=== PATIENT | male | born 1930 | race Caucasian/White ===

== ENCOUNTER 2016-11-24 20:25 | Inpatient (IN) | payer OTHER, MEDICARE ==
[2016-11-24] MEDS ORDERED: HEPARIN SODIUM,PORCINE/D5W PMX 25,000 UNIT in DEXTROSE/WATER 1 500ML.BAG IV STA (20:38)
[2016-11-24] MEDS ORDERED: NITROGLYCERIN OINT 1 INCH/GM PACKET TOPICAL STA (20:38)
[2016-11-24] MEDS ORDERED: HEPARIN SODIUM,PORCINE 5,000 UNIT/ML 1 ML VIAL IV STA (20:38)
--- NOTE | 2016-11-24 20:43 | ED ---
Chest Pain HPI - General Source: patient, RN notes reviewed Mode of arrival: wheelchair Limitations: no limitations - History of Present Illness MD Complaint: chest pain <Champ Hickman - Last Filed: 11/24/16 20:53> <Champ Lange - Last Filed: 11/24/16 22:02> - General Chief Complaint: Chest Pain Stated Complaint: chest pain; took 2 nitro @ 1930 Time Seen by Provider: 11/24/16 20:32 - History of Present Illness Initial Comments: This is a 86-year-old male with a history of heart disease states she's had 46 heart attacks and 2 stents who states he's had the onset over last 3 weeks of intermittent left arm pain crampy in nature. It is fleeting lasts seconds. He states it is 73 tonight however he started developing left-sided crampy chest pain he had 2 episodes lasting 15-20 seconds the pain was 78/10 in severity. He does take his nitroglycerin he's not sure if it was old or how old it is. It did seem to take the pain away however. He did take his blood pressure medication today. He states he recently had been running higher than usual. He denies any fevers chills nausea vomiting sweats he thinks he may have had some shortness of breath with the pain. No other complaints no cough or phlegm production. (Champ Hickman) - Related Data Home Medications Medication Instructions Recorded Confirmed Aspirin EC [Ecotrin] 325 mg PO DAILY 07/21/14 07/21/14 Cephalexin [Keflex] 500 mg PO Q12HR 07/21/14 07/21/14 Clopidogrel [Plavix] 75 mg PO DAILY 07/21/14 07/21/14 Furosemide [Lasix] 20 mg PO DAILY 07/21/14 07/21/14 Hydrochlorothiazide [Hydrodiuril] 50 mg PO DAILY 07/21/14 07/21/14 Isosorbide Mononitrate ER [Imdur] 60 mg PO BID 07/21/14 07/21/14 Losartan [Cozaar] 25 mg PO BID 07/21/14 07/21/14 Magnesium Gluconate [Magonate] 500 mg PO DAILY 07/21/14 07/21/14 Movefree 1 tab PO DAILY 07/21/14 07/21/14 [place]-3 Fatty Acids/Fish Oil [Fish 1 tab PO DAILY 07/21/14 07/21/14 Oil 1,000 mg Softgel] Omeprazole [PriLOSEC] 20 mg PO AC-BRKFST 07/21/14 07/21/14 PARoxetine [Paxil] 20 mg PO DAILY 07/21/14 07/21/14 Simvastatin [Zocor] 20 mg PO HS 07/21/14 07/21/14 Tamsulosin [Flomax] 0.4 mg PO DAILY 07/21/14 07/21/14 Allergies Allergy/AdvReac Type Severity Reaction Status Date / Time dutasteride [From Avodart] AdvReac Rapid Verified 11/24/16 20:29 Heart Rate morphine AdvReac PASS OUT Verified 11/24/16 20:29 venom-honey bee AdvReac PASS OUT Verified 11/24/16 20:29 [bee venom (honey bee)] Review of Systems ROS Other: All systems not noted in ROS Statement are negative. <Champ Hickman - Last Filed: 11/24/16 20:53> ROS Other: All systems not noted in ROS Statement are negative. <Champ Lange - Last Filed: 11/24/16 22:02> ROS Statement: Those systems with pertinent positive or pertinent negative responses have been documented in the HPI. EKG Findings - EKG Results: EKG: interpreted by ERMD, sinus rhythm (Sinus rhythm rate is 70 NM interval 196 QRS duration 136 DT says QTC of 412/444 by bundle-branch block with anterior fascicular block, minimal voltage criteria for LVH.) <Champ Hickman - Last Filed: 11/24/16 20:53> Past Medical History Past Medical History: Coronary Artery Disease (CAD), Hypertension, Myocardial Infarction ([place]) Last Myocardial Infarction Date:: 2012 History of Any Multi-Drug Resistant Organisms: None Reported Past Surgical History: Ear Surgery, Heart Catheterization With Stent, Joint Replacement Additional Past Surgical History / Comment(s): Rt knee, cataract removal Past Anesthesia/Blood Transfusion Reactions: No Reported Reaction Date of Last Stent Placement:: 2012 Past Psychological History: No Psychological Hx Reported, Depression Smoking Status: Former smoker Past Alcohol Use History: None Reported Past Drug Use History: None Reported <Champ Hickman - Last Filed: 11/24/16 20:53> General Exam Limitations: no limitations General appearance: alert, in no apparent distress Head exam: Present: atraumatic, normocephalic, normal inspection Eye exam: Present: normal appearance, PERRL, EOMI. Absent: scleral icterus, conjunctival injection, periorbital swelling ENT exam: Present: normal exam, mucous membranes moist Neck exam: Present: normal inspection. Absent: tenderness, meningismus, lymphadenopathy Respiratory exam: Present: normal lung sounds bilaterally. Absent: respiratory distress, wheezes, rales, rhonchi, stridor Cardiovascular Exam: Present: regular rate, normal rhythm, normal heart sounds. Absent: systolic murmur, diastolic murmur, rubs, gallop, clicks GI/Abdominal exam: Present: soft, normal bowel sounds. Absent: distended, tenderness, guarding, rebound, rigid Extremities exam: Present: normal inspection, full ROM, normal capillary refill. Absent: tenderness, pedal edema, joint swelling, calf tenderness Back exam: Present: normal inspection Neurological exam: Present: alert, oriented X3, CN II-XII intact Psychiatric exam: Present: normal affect, normal mood Skin exam: Present: warm, dry, intact, normal color. Absent: rash <Champ Hickman - Last Filed: 11/24/16 20:53> <Champ Lange - Last Filed: 11/24/16 22:02> - General Exam Comments Initial Comments: This is a well-developed well-nourished awake alert oriented 3 male (Champ Hickman) Course <Champ Hickman - Last Filed: 11/24/16 20:53> <Champ Lange - Last Filed: 11/24/16 22:02> Vital Signs 11/24/16 11/24/16 20:27 21:15 Temperature 98 F Pulse Rate 76 61 Respiratory 18 18 Rate Blood Pressure 228/106 193/88 O2 Sat by Pulse 99 98 Oximetry - Reevaluation(s) Reevaluation #1: 11/24/16 20:53 The patient's care will be endorsed to Dr. Lange at our shift change. He will make the final disposition (Champ Hickman) Chest Pain MDM <Champ Hickman - Last Filed: 11/24/16 20:53> - Differential Diagnosis ACS <Champ Lange - Last Filed: 11/24/16 22:02> - MDM Patient signed out from Dr. Hickman at shift change. Patient was evaluated for chest pain. He was started on heparin and nitroglycerin. Laboratory studies were pending. I did evaluate the patient after sign out. He complained of chest pain which lasted 10-15 seconds, 2 episodes which began approximate 7:30 this evening. Chest pain was resolved at the time my evaluation. He did have nausea and diaphoresis associated with this episode. He has had a traumatic arm pain over the last several weeks. Which may be anginal equivalent. EKG from 2031 was reviewed and does show ST segment depression in V2 and V3 V3 depression is concordant in the presence of a bifascicular block. Repeat EKG was obtained, shows improved ST segment depression in V3, there is persistent depression in V2 again in the setting of a bifascicular block. This EKG was obtained at 2133. These changes are new compared to EKG obtained in July 2014. I did call down to [facility] for heart catheterization report and recent EKG information. Old EKG was from April 2013, showed no right bundle branch block, no left anterior fascicular block, and no ST segment depression. I did not visualize his EKG this was report from the physician at [facility]. Patient did have a heart catheterization at that time. These records will be obtained. Chest x-ray shows no acute processes. Laboratory studies including CBC, CMP, and initial cardiac enzymes are within normal limits. Patient will be admitted for cardiology evaluation. Echo has been ordered, patient will be continued on heparin and nitroglycerin paste. He is chest pain- free in the emergency department. Diagnosis: Unstable angina, EKG changes (Champ Lange) Critical Care Time Critical Care Time: Yes Total Critical Care Time: 41 <Champ Lange - Last Filed: 11/24/16 22:02> Disposition <Champ Hickman - Last Filed: 11/24/16 20:53> Decision to Admit Reason: Admit from EC Decision Date: 11/24/16 Decision Time: 22:02 <Champ Lange - Last Filed: 11/24/16 22:02> Clinical Impression: Unstable angina pectoris Disposition: ADMITTED IP TO THIS [facility] Condition: Serious Referrals: Michael Brito MD [STAFF PHYSICIAN] - 1-2 days
[2016-11-24 20:50] LABS: Basophils # (A) 0.1 k/uL (0-0.2); Basophils % (A) 1 %; CH 32.9; CHCM 34.8; Eosinophils # (A) 0.4 k/uL (0-0.7); Eosinophils % (A) 5 %; HCT 46.4 % (39.0-53.0); HDW 2.61; HGB 16.3 gm/dL (13.0-17.5); Luc # (Auto) 0.19; Luc % (Auto) 2; Lymphocytes # (A) 1.8 k/uL (1.0-4.8); Lymphocytes % (A) 21 %; MCH 33.3 pg (25.0-35.0); MCHC 35.1 g/dL (31.0-37.0); MCV 94.9 fL (80.0-100.0); Mean Platelet Volume 6.7; Monocytes # (A) 0.6 k/uL (0-1.0); Monocytes % (A) 7 %; Neutrophils # (A) 5.7 k/uL (1.3-7.7); Neutrophils % (A) 65 %; RBC 4.89 m/uL (4.30-5.90); RDW 13.2 % (11.5-15.5); WBC 8.8 k/uL (3.8-10.6); WBC (Perox) 8.18
[2016-11-24 20:59] LABS: ALT 34 U/L (21-72); AST 18 U/L (17-59); Alkaline Phosphatase 70 U/L (38-126); Anion Gap 11 mmol/L; Blood Urea Nitrogen 16 mg/dL (9-20); Calcium 8.8 mg/dL (8.4-10.2); Carbon Dioxide 22 mmol/L (22-30); Chloride 99 mmol/L (98-107); Glucose 153 mg/dL (74-99); Magnesium 1.8 mg/dL (1.6-2.3); Non-African American GFR(MDRD) >60 (>60 ml/min/1.73 sqM); Potassium 4.1 mmol/L (3.5-5.1); Sodium 132 mmol/L (137-145); Total Bilirubin 1.1 mg/dL (0.2-1.3); Total Protein 6.5 g/dL (6.3-8.2)
[2016-11-24 21:07] LABS: Partial Thromboplastin Time 23.6 sec (22.0-30.0); Prothrombin Time 10.5 sec (9.0-12.0)
[2016-11-24 21:09] LABS: Creatine Kinase 55 U/L (55-170)
[2016-11-24 21:22] LABS: Creatine Kinase MB 1.5 ng/mL (0.0-2.4); Troponin I <0.012 ng/mL (0.000-0.034)
--- NOTE | 2016-11-24 21:33 | XR ---
EXAMINATION TYPE: XR chest 2V DATE OF EXAM: 11/24/2016 COMPARISON: 07/21/2014 INDICATION: Chest pain TECHNIQUE: Frontal and lateral views of the chest are obtained. FINDINGS: The heart size is normal. The pulmonary vasculature is normal. The lungs are clear. IMPRESSION: 1. No acute pulmonary process.
[2016-11-24] MEDS ORDERED: LOSARTAN 50 MG TAB PO STA (21:35)
[2016-11-24] MEDS ORDERED: ONDANSETRON 4 MG/2 ML VIAL IVP PRN (21:50)
[2016-11-24] MEDS ORDERED: NALOXONE 0.4 MG/ML 1 ML VIAL IV PRN (21:50)
[2016-11-24] MEDS ORDERED: SODIUM CHLORIDE 0.9% 1,000 ML IV SCH (22:00)
[2016-11-24 23:19] VITALS: BMI 28.6
[2016-11-24] MEDS ORDERED: HEPARIN SODIUM,PORCINE 5,000 UNIT/ML 1 ML VIAL IV PRN (23:38)
[2016-11-24] MEDS ORDERED: ACETAMINOPHEN TAB 325 MG TAB PO PRN (23:44)
[2016-11-24] MEDS ORDERED: KETOROLAC 30 MG/ML 1 ML VIAL IVP PRN (23:44)
[2016-11-24] MEDS ORDERED: HEPARIN SODIUM,PORCINE/D5W PMX 25,000 UNIT in DEXTROSE/WATER 1 500ML.BAG IV SCH (23:45)
[2016-11-25] MEDS: NITROGLYCERIN-D5W PMX 50 MG in DEXTROSE/WATER 1 250ML.BAG IV SCH (00:17)
[2016-11-25 02:47] LABS: Basophils # (A) 0.1 k/uL (0-0.2); Basophils % (A) 1 %; CH 33.8; CHCM 34.7; Eosinophils # (A) 0.5 k/uL (0-0.7); Eosinophils % (A) 6 %; HCT 43.3 % (39.0-53.0); HDW 2.54; HGB 14.4 gm/dL (13.0-17.5); Luc # (Auto) 0.18; Luc % (Auto) 2; Lymphocytes # (A) 2.2 k/uL (1.0-4.8); Lymphocytes % (A) 26 %; MCH 32.5 pg (25.0-35.0); MCHC 33.2 g/dL (31.0-37.0); MCV 98.1 fL (80.0-100.0); Monocytes # (A) 0.5 k/uL (0-1.0); Monocytes % (A) 6 %; Neutrophils # (A) 4.8 k/uL (1.3-7.7); Neutrophils % (A) 58 %; RBC 4.42 m/uL (4.30-5.90); WBC 8.2 k/uL (3.8-10.6); WBC (Perox) 8.16
[2016-11-25 03:26] LABS: Creatine Kinase MB 1.5 ng/mL (0.0-2.4); Troponin I 0.023 ng/mL (0.000-0.034)
[2016-11-25 03:32] LABS: ALT 32 U/L (21-72); AST 16 U/L (17-59); Alkaline Phosphatase 59 U/L (38-126); Anion Gap 8 mmol/L; Blood Urea Nitrogen 15 mg/dL (9-20); Calcium 8.5 mg/dL (8.4-10.2); Carbon Dioxide 22 mmol/L (22-30); Chloride 104 mmol/L (98-107); Glucose 99 mg/dL (74-99); Non-African American GFR(MDRD) >60 (>60 ml/min/1.73 sqM); Sodium 134 mmol/L (137-145); Total Bilirubin 0.8 mg/dL (0.2-1.3); Total Protein 5.3 g/dL (6.3-8.2)
[2016-11-25 09:06] LABS: Creatine Kinase MB 1.5 ng/mL (0.0-2.4); Troponin I 0.017 ng/mL (0.000-0.034)
--- NOTE | 2016-11-25 09:55 | CONS ---
Mr. Duggan is an 86-year-old male patient who presented with recurrent chest discomfort. He is experiencing chest discomfort, mostly lasting for a few minutes and occasionally lasting for 10 to 15 minutes and often with left arm discomfort. He has an appointment pending with Dr. Brito in about three or four weeks. This has been going on for greater than one month. He came to the emergency room. His blood pressure is very high, 190 mmHg. At home he states his blood pressure fluctuates from 130 systolic to 160 to 170 mmHg. He denies any headaches, any blurring of vision. REVIEW OF SYSTEMS: no fever, chills or rigors. No cough or expectoration. He has had no nausea or vomiting, no diarrhea and no hematuria or dysuria. No strokes or seizures. No skin lesions or musculoskeletal complaints. Past medical history of coronary artery disease status post coronary stenting on numerous occasions. History of hypertension. ALLERGY: Reviewed. Medications are reviewed at home. On examination, his blood pressure today is still high on nitroglycerine 190 systolic. 190/79 mmHg. Heart rate in the 50s. Temperature 97.1 degrees. Heart sounds S1, S1 normal. No murmurs or gallops. Breath sounds are normal. There are no rhonchi. No crackles. Extremities are warm, no edema. IMPRESSION: 1. Uncontrolled hypertension, blood pressure on admission was ( ) mmHg. This morning is it 190/79 mmHg. The lowest it has been is 130/71 mmHg but that is a single isolated episode. 2. I do not hear any abdominal bruits. His labs are reviewed. His potassium level is normal. Troponins are also normal. There is no evidence of an acute myocardial infarction. 3. 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 No syncope. SUGGEST: 1. Taper of IV nitroglycerine, start Amlodipine 5 mg twice daily. 2. Restart Losartan 50 mg twice daily. 3. Renal artery Doppler study. 4. Serum ( ), serum ( ). 5. Lipid panel. My plan is blood pressure control first and then subsequently workup for coronary artery disease. [facility]
[2016-11-25] MEDS: amLODIPine 5 MG TAB PO SCH ×2 (11:25→20:28)
[2016-11-25] MEDS: LOSARTAN 50 MG TAB PO SCH ×2 (11:25→20:28)
--- NOTE | 2016-11-25 16:23 | P.HPIM ---
History of Present Illness H&P Date: 11/25/16 Chief Complaint: Chest pain This is a 86-year-old gentleman with history of CAD status post a cardiac catheterization in 2012 and PCI done by Dr. Brito comes in to the hospital with complaints of vague chest pain and left arm pain that is intermittent in nature over the last 4-6 weeks. Patient denies having any exacerbating features such as activity causing the recurrence of pain. However patient's symptoms have progressively gotten worse over the last few weeks. Patient was noted to have relief with nitroglycerin the day of admission to the emergency room Patient was also noted to have accelerated hypertension at that time. EKG was consistent with vague changes with a bifascicular block no ST-T wave changes Patient was having acute chest pain overnight I did initiate a nitroglycerin drip for blood pressure control and relief of chest pain. Patient was seen this morning was noted to have elevated high blood pressures. During my evaluation patient is having any headaches blurry vision nausea vomiting diarrhea. Review of Systems All systems: negative (Noted in HPI) Past Medical History Past Medical History: Coronary Artery Disease (CAD), Heart Failure, CVA/TIA, Hypertension, Myocardial Infarction ([place]), Osteoarthritis (OA) Additional Past Medical History / Comment(s): patient states he had a stroke a couple years ago but did not go to the hospital for it. Said his mouth and hands went numb and was unable to see. Symptoms lasted a couple hours and then improved. Last Myocardial Infarction Date:: 2012 History of Any Multi-Drug Resistant Organisms: None Reported Past Surgical History: Ear Surgery, Heart Catheterization With Stent, Joint Replacement Additional Past Surgical History / Comment(s): Rt knee, cataract removal Past Anesthesia/Blood Transfusion Reactions: No Reported Reaction Date of Last Stent Placement:: 2012 Past Psychological History: No Psychological Hx Reported, Depression Additional Psychological History / Comment(s): Patient states he has been under a lot of stress and has felt depressed lately. Lost his son 3 weeks ago. Smoking Status: Former smoker Past Alcohol Use History: None Reported Past Drug Use History: None Reported - Past Family History Son(s) Family Medical History: Coronary Artery Disease (CAD) Additional Family Medical History / Comment(s): son recently from heart disease, was born with heart defect. Medications and Allergies Home Medications Medication Instructions Recorded Confirmed Type Aspirin EC [Ecotrin] 325 mg PO DAILY 07/21/14 11/25/16 History Clopidogrel [Plavix] 75 mg PO DAILY 07/21/14 11/25/16 History Isosorbide Mononitrate ER [Imdur] 60 mg PO BID 07/21/14 11/25/16 History Losartan [Cozaar] 50 mg PO BID 07/21/14 11/25/16 History Magnesium Gluconate [Magonate] 500 mg PO DAILY 07/21/14 11/25/16 History PARoxetine [Paxil] 20 mg PO DAILY 07/21/14 11/25/16 History Simvastatin [Zocor] 20 mg PO HS 07/21/14 11/25/16 History Tamsulosin [Flomax] 0.4 mg PO DAILY 07/21/14 11/25/16 History amLODIPine [Norvasc] 2.5 mg PO DAILY 11/25/16 11/25/16 History Allergies Allergy/AdvReac Type Severity Reaction Status Date / Time dutasteride [From Avodart] AdvReac Rapid Verified 11/25/16 08:02 Heart Rate morphine AdvReac PASS OUT Verified 11/25/16 08:02 venom-honey bee AdvReac PASS OUT Verified 11/25/16 08:02 [bee venom (honey bee)] Physical Exam Vitals: Vital Signs Temp Pulse Pulse Resp BP BP Pulse Ox 11/25/16 11:50 97.0 F L 59 L 18 198/93 97 11/25/16 08:47 96 11/25/16 07:50 97.1 F L 52 L 18 190/79 96 11/25/16 05:44 156/72 11/25/16 04:00 96.8 F L 51 L 18 130/71 97 11/25/16 02:45 153/72 11/25/16 01:25 166/80 11/25/16 00:00 97.5 F L 56 L 16 173/89 98 11/24/16 22:50 97.0 F L 60 18 208/93 97 11/24/16 22:17 97.8 F 60 16 182/91 98 11/24/16 21:15 61 18 193/88 98 11/24/16 20:27 98 F 76 18 228/106 99 Intake and Output 11/25/16 11/25/16 11/25/16 06:59 14:59 22:59 Intake Total 706.525 240 Output Total 1000 Balance 706.525 -760 Intake: Intake, IV Titration 706.525 Amount Heparin Sodium,Porcine/ 70.525 D5w Pmx 25,000 unit In Dextrose/Water 1 500ml. bag @ 11.8 UNITS/KG/HR 20 .15 mls/hr IV .Q24H MARIA TERESA Rx#:[id number] Nitroglycerin-D5w Pmx 50 36 mg In Dextrose/Water 1 250ml.bag @ 15 MCG/MIN 4. 5 mls/hr IV .Q24H MARIA TERESA Rx# :[id number] Sodium Chloride 0.9% 1, 600 000 ml @ 75 mls/hr IV . [id number] MARIA TERESA Rx#:[id number] Oral 240 Output: Urine 1000 Other: Voiding Method Toilet # Voids 1 2 Weight 85.4 kg Physical exam Gen. appearance oriented 3 in no distress Neck is supple no JVD Lungs good air entry clear to auscultation no rhonchi or wheezing Heart S1-S2 heard regular rate and rhythm no murmurs appreciated Abdomen is soft nontender no organomegaly bowel sounds are intact Neurologically cranial nerves II-12 grossly intact no focal motor or sensory deficits noted Skin no abnormalities appreciated Results CBC & Chem 7: 11/25/16 02:29 11/25/16 02:29 Labs: Abnormal Lab Results - Last 24 Hours (Table) 11/24/16 11/25/16 11/25/16 Range/Units 20:44 02:29 02:29 APTT (22.0-30.0) sec Sodium 132 L 134 L (137-145) mmol/L Glucose 153 H (74-99) mg/dL AST 16 L (17-59) U/L Total Creatine Kinase 45 L (55-170) U/L Total Protein 5.3 L (6.3-8.2) g/dL Albumin 3.1 L (3.5-5.0) g/dL 11/25/16 11/25/16 11/25/16 Range/Units 02:29 08:18 08:18 APTT 90.0 H 68.6 H (22.0-30.0) sec Sodium (137-145) mmol/L Glucose (74-99) mg/dL AST (17-59) U/L Total Creatine Kinase 46 L (55-170) U/L Total Protein (6.3-8.2) g/dL Albumin (3.5-5.0) g/dL Thrombosis Risk Factor Assmnt - Choose All That Apply Any of the Below Risk Factors Present?: Yes Each Factor Represents 1 point: Obesity (BMI >25) Each Risk Factor Represents 3 Points: Age 75 years or older Thrombosis Risk Factor Assessment Total Risk Factor Score: 4 Thrombosis Risk Factor Assessment Level: Moderate Risk Assessment and Plan Plan: #1 unstable angina #2 accelerated hypertension. With hypertensive urgency #3 history of CAD #4 dyslipidemia #5 previous history of tobacco use Plan Titrated of nitroglycerin drip Patient was initiated on some blood pressure medications for better control Thereafter with his risk factors CAD will be worked up in the next 24 hours Continue monitoring blood pressures at this time.
[2016-11-26] MEDS: NITROGLYCERIN-D5W PMX 50 MG in DEXTROSE/WATER 1 250ML.BAG IV SCH (09:01)
[2016-11-26] MEDS: amLODIPine 5 MG TAB PO SCH ×2 (09:08→20:09)
[2016-11-26] MEDS: LOSARTAN 50 MG TAB PO SCH ×2 (09:08→20:09)
--- NOTE | 2016-11-26 10:26 | ECHOF ---
Referral Reason:chest pain MEASUREMENTS -------- HEIGHT: 172.7 cm WEIGHT: 82.1 kg BP: 161/74 RVIDd: 3.3 cm (< 3.3) IVSd: 1.2 cm (0.6 - 1.1) LVIDd: 3.9 cm (3.9 - 5.3) LVPWd: 1.1 cm (0.6 - 1.1) IVSs: 1.4 cm LVIDs: 2.9 cm LVPWs: 1.6 cm LA Diam: 3.9 cm (2.7 - 3.8) LAESV Index (A-L): 28.08 ml/m Ao Diam: 3.0 cm (2.0 - 3.7) AV Cusp: 1.9 cm (1.5 - 2.6) MV EXCURSION: 12.364 mm (> 18.000) MV EF SLOPE: 33 mm/s (70 - 150) EPSS: 0.7 cm MV E Greyson: 0.77 m/s MV DecT: 321 ms MV A Greyson: 1.06 m/s MV E/A Ratio: 0.72 AV maxP.00 mmHg AV meanP.00 mmHg FINDINGS -------- This was a technically good study. The left ventricular size is normal. There is borderline concentric left ventricular hypertrophy. Overall left ventricular systolic function is normal with, an EF between 55 - 60 %. The right ventricle is mildly enlarged. Normal LA size by volume 22+/-6 ml/m2. The right atrium is normal in size. There is mild aortic valve sclerosis. Trace amount of aortic regurgitation. Mild mitral annular calcification present. There is trace to mild mitral regurgitation. The tricuspid valve appears structurally normal. There is no pulmonic regurgitation present. The aortic root size is normal. IVC Not well visulized. There is no pericardial effusion. CONCLUSIONS -------- 1. This was a technically good study. 2. Mild mitral annular calcification present. 3. There is trace to mild mitral regurgitation. 4. The tricuspid valve appears structurally normal. 5. There is no pulmonic regurgitation present. 6. The aortic root size is normal. 7. IVC Not well visulized. 8. There is no pericardial effusion. 9. The left ventricular size is normal. 10. There is borderline concentric left ventricular hypertrophy. 11. Overall left ventricular systolic function is normal with, an EF between 55 - 60 %. 12. The right ventricle is mildly enlarged. 13. Normal LA size by volume 22+/-6 ml/m2. 14. The right atrium is normal in size. 15. There is mild aortic valve sclerosis. 16. Trace amount of aortic regurgitation. BEHAVIORAL HEALTH CARE COORDINATOR: Lesvia Sampson RDCS
--- NOTE | 2016-11-26 10:34 | US ---
EXAMINATION TYPE: US renal artery duplex complete DATE OF EXAM: 11/26/2016 COMPARISON: NONE CLINICAL HISTORY: renal artery stenosis. HTN for years MEASUREMENTS: RENAL SIZE: Rt Kidney: 11.1 x 6.2 x 4.3cm Lt Kidney: 11.3 x 5.8 x 4.8cm RESISTANCE INDEX Right: 0.72 Left: 0.74 RA/AO RATIO (< 3.5 ) Right: 1.5 Left: 1.3 RA VELOCITY ( < 180 cm/s) Right: 158.5 cm/s Left: 134.4 cm/s Calcifications noted throughout aorta. Lobulated contour noted right kidney. Cystic areas noted bilat eral kidneys with largest = 1.2 x 1.0 x 1.0cm on the right and 0.8 x 0.9 x 0.8cm on the left. No evid ence of renal artery stenosis at this time. Low resistive waveforms noted throughout. Good upstroke a t segmentals at hilum IMPRESSION: 1. Normal renal artery Doppler study without significant stenosis. 2. Scattered bilateral renal cysts. 3. Atherosclerotic calcification within the aorta.
[2016-11-26] MEDS: TRIAMTERENE-HCTZ 37.5-25MG 1 EACH CAP PO SCH (12:13)
--- NOTE | 2016-11-26 12:26 | P.PN ---
Subjective Principal diagnosis: chest pain and hypertension This is an 86-year-old gentleman who presented to the hospital with symptoms of chest discomfort on admission here. This morning his blood pressure is in the 180s systolic range, we will add Dyazide to his medication regime.metanephrines have been requested, patient also underwent renal artery ultrasound, normal without any significant stenosis. Overall the patient feels well today, denies any further chest discomfort. Troponin's 0.012, 0.0-3, 0.017. Patient states that he had a bad reaction to a non-walking stress test in the past, Dr. Matos recommended Lisa scan tomorrow. Objective - Vital Signs Vital signs: Vital Signs Temp 97 F L 11/26/16 12:00 Pulse 64 11/26/16 12:00 Resp 16 11/26/16 12:00 BP 189/88 11/26/16 12:00 Pulse Ox 97 11/26/16 12:00 Intake & Output 11/25/16 11/26/16 11/26/16 18:59 06:59 18:59 Intake Total 480 48 Output Total 1000 Balance -520 48 Weight 82.3 kg Intake: Intake, IV Titration 48 Amount Nitroglycerin-D5w Pmx 50 48 mg In Dextrose/Water 1 250ml.bag @ 15 MCG/MIN 4. 5 mls/hr IV .Q24H MARIA TERESA Rx# :[id number] Oral 480 Output: Urine 1000 Other: Voiding Method Toilet # Voids 2 1 - Exam PHYSICAL EXAMINATION: HEENT: [Head is atraumatic, normocephalic. Pupils equal, round. Neck is supple. There is no elevated jugular venous pressure.] HEART EXAMINATION: [Heart S1, S2 normal. No murmur or gallop heard.] CHEST EXAMINATION:[ Lungs are clear to auscultation and precussion. No chest wall tenderness is noted on palpation or with deep breathing.] ABDOMEN: [ Soft, nontender. Bowel sounds are heard. No organomegaly noted]. EXTREMITIES:[ 2+ peripheral pulses with no evidence of peripheral edema and no calf tenderness noted]. NEUROLOGIC [patient is awake, alert and oriented -3.] . - Labs CBC & Chem 7: 11/25/16 02:29 11/25/16 02:29 Assessment and Plan (1) Chest pain Status: Acute (2) Hypertension, accelerated Status: Acute Plan: From cardiology's perspective, we will add Dyazide to the patient's medication regime for more optimal blood pressure control. We will also schedule the patient to undergo a Lexiscan stress test tomorrow, further recommendations will be based on those findings and the patient's clinical course. DNP note has been reviewed, I agree with a documented findings and plan of care. Patient was seen and examined.
--- NOTE | 2016-11-26 13:29 | P.PN ---
Subjective Progress note being dictated for Dr. Olivares Interval history:This is a 86-year-old gentleman with history of CAD status post a cardiac catheterization in 2012 and PCI done by Dr. Brito comes in to the hospital with complaints of vague chest pain and left arm pain that is intermittent in nature over the last 4-6 weeks. Patient denies having any exacerbating features such as activity causing the recurrence of pain. However patient's symptoms have progressively gotten worse over the last few weeks. Patient was noted to have relief with nitroglycerin the day of admission to the emergency room Patient was also noted to have accelerated hypertension at that time. EKG was consistent with vague changes with a bifascicular block no ST-T wave changes Patient was having acute chest pain overnight I did initiate a nitroglycerin drip for blood pressure control and relief of chest pain. Patient was seen this morning was noted to have elevated high blood pressures. During my evaluation patient is having any headaches blurry vision nausea vomiting diarrhea. 11/26/2016 maintained on nitroglycerin drip. Hypertensive, Dyazide added to med regime as per cardiology. Tentatively scheduled for stress test tomorrow pending better control blood pressure. Denies any chest pain, palpitations or increasing shortness of breath. Denies any lightheadedness or dizziness. Focal deficits, no blurred vision, no headaches. Objective - Vital Signs Vital signs: Vital Signs Temp 97 F L 11/26/16 12:00 Pulse 64 11/26/16 12:00 Resp 16 11/26/16 12:00 BP 189/88 11/26/16 12:00 Pulse Ox 97 11/26/16 12:00 Intake & Output 11/25/16 11/26/16 11/26/16 18:59 06:59 18:59 Intake Total 480 48 180 Output Total 1000 Balance -520 48 180 Weight 82.3 kg Intake: Intake, IV Titration 48 Amount Nitroglycerin-D5w Pmx 50 48 mg In Dextrose/Water 1 250ml.bag @ 15 MCG/MIN 4. 5 mls/hr IV .Q24H MARIA TERESA Rx# :[id number] Oral 480 180 Output: Urine 1000 Other: Voiding Method Toilet # Voids 2 1 - Exam PHYSICAL EXAM: VITAL SIGNS: [As above] GENERAL: [Sitting up in bed, no acute distress] HEENT: [Pupils equal conjunctiva normal. Oral mucosa moist] NECK: [Supple, no JVD] RESPIRATORY EFFORT:[ Normal] LUNGS: [Clear, no wheezing, rhonchi or crackles] CARDIOVASCULAR[ regular S1 and S2, no murmurs rubs or gallops, no edema] GI: [Abdomen soft, nontender, positive bowel sounds. No organomegaly, no guarding or rigidity] PSYCH: [Alert and oriented -3, mood and affect normal.] SKIN: No abnormalities appreciated. NEURO: [No focal deficits, moves all 4 extremities, strength and sensation grossly intact.] - Labs CBC & Chem 7: 11/25/16 02:29 11/25/16 02:29 Assessment and Plan Plan: #1 unstable angina #2 accelerated hypertension. With hypertensive urgency #3 history of CAD #4 dyslipidemia #5 previous history of tobacco use Plan: Continue on current medication regime ,monitoring and symptomatic treatment. As mentioned above Dyazide added to med regime, nitroglycerin drip has been discontinued as per cardiology and patient is tentatively scheduled for stress test tomorrow. Further recommendations to follow. The impression and plan of care has been dictated as directed. : I performed a H&P examination of this patient and discussed the same with the dictator. I agree with the dictator's note. Any additional findings/opinions/ etc. will be noted.
[2016-11-26 18:01] VITALS: RESP 18
[2016-11-27] MEDS: amLODIPine 5 MG TAB PO SCH (08:36)
[2016-11-27] MEDS: TRIAMTERENE-HCTZ 37.5-25MG 1 EACH CAP PO SCH (08:36)
[2016-11-27] MEDS: LOSARTAN 50 MG TAB PO SCH (08:36)
[2016-11-27] MEDS ORDERED: AMINOPHYLLINE 500 MG/20 ML VIAL IV PRN (10:02)
[2016-11-27] MEDS ORDERED: REGADENOSON 0.4 MG/5 ML SYRINGE IV ONE (10:02)
[2016-11-27 12:46] VITALS: BP 177/84; PULSE 56; TEMP 97.5
--- NOTE | 2016-11-27 13:14 | NM ---
EXAMINATION TYPE: NM stress lexiscan cardiolite DATE OF EXAM: 11/27/2016 COMPARISON: NONE HISTORY: Precordial chest pain and abnormal EKG. TECHNIQUE: After the intravenous administration of 11.21 mCi Tc 99m Sestamibi - Cardiolite resting S PECT images acquired 79 minutes post injection. The patient received 0.4mg Lexiscan, 27.5 mCi Tc 99m Sestamibi - Stress images obtained [address] injection FINDINGS: Review of stress and rest SPECT images demonstrates relatively fixed decreased perfusion involving th e inferior wall. This is likely related to attenuation artifact versus remote insult. No stress-induc ed ischemia identified. Gated analysis shows normal wall motion with an estimated left ventricular ej ection fraction of 56 %. IMPRESSION: No scintigraphic evidence for reversible ischemia.
--- NOTE | 2016-11-27 14:46 | P.PN ---
Subjective Principal diagnosis: chest pain and hypertension This is an 86-year-old gentleman who presented to the hospital with symptoms of chest discomfort on admission here. This morning his blood pressure is in the 180s systolic range, we will add Dyazide to his medication regime.metanephrines have been requested, patient also underwent renal artery ultrasound, normal without any significant stenosis. Overall the patient feels well today, denies any further chest discomfort. Troponin's 0.012, 0.0-3, 0.017. Patient states that he had a bad reaction to a non-walking stress test in the past, Dr. Matos recommended Lisa scan tomorrow. 11/27/2016 Patient seen and examined this morning, up ambulating in the [place] without any difficulty. Denies any chest discomfort. Blood pressure 138/60 heart rate in the 40s to 50s. Lisa scan was performed today which came back negative for any reversible ischemia. Objective - Vital Signs Vital signs: Vital Signs Temp 97.5 F L 11/27/16 12:00 Pulse 56 L 11/27/16 12:00 Resp 18 11/27/16 12:00 BP 177/84 11/27/16 12:00 Pulse Ox 96 11/27/16 12:00 Intake & Output 11/26/16 11/27/16 11/27/16 18:59 06:59 18:59 Intake Total 360 440 Output Total 350 Balance 360 90 Weight 81.9 kg 81.647 kg Intake: Oral 360 440 Output: Urine 350 Other: Voiding Method Toilet Toilet # Voids 2 1 - Exam PHYSICAL EXAMINATION: HEENT: [Head is atraumatic, normocephalic. Pupils equal, round. Neck is supple. There is no elevated jugular venous pressure.] HEART EXAMINATION: [Heart S1, S2 normal. No murmur or gallop heard.] CHEST EXAMINATION:[ Lungs are clear to auscultation and precussion. No chest wall tenderness is noted on palpation or with deep breathing.] ABDOMEN: [ Soft, nontender. Bowel sounds are heard. No organomegaly noted]. EXTREMITIES:[ 2+ peripheral pulses with no evidence of peripheral edema and no calf tenderness noted]. NEUROLOGIC [patient is awake, alert and oriented -3.] . - Labs CBC & Chem 7: 11/25/16 02:29 11/25/16 02:29 Assessment and Plan (1) Chest pain Status: Acute (2) Hypertension, accelerated Status: Acute Plan: From cardiology's perspective, Lisa scan stress test of today was negative for any reversible ischemia. From cardiology's perspective he may be able to be discharged home today, we'll make him a follow-up appointment to see Dr. Brito in the office post discharge. DNP note has been reviewed, I agree with a documented findings and plan of care. Patient was seen and examined.
--- NOTE | 2016-11-28 07:06 | EST ---
DATE OF SERVICE: 11/27/2016 TYPE OF REPORT: Lexiscan Cardiolite stress test. INDICATION: Chest pain. BASELINE HEART RATE: 57 BASELINE BLOOD PRESSURE: 150/70 MAXIMUM HEART RATE: 75 MAXIMUM BLOOD PRESSURE: 175/65 85% MPHR: 100% MPHR: METS: MAX STAGE REACHED: TOTAL EXERCISE TIME: The test is being done to evaluate cardiac status. Baseline EKG showed sinus rhythm with normal OK interval and QRS duration and nonspecific ST-T abnormalities. Blood pressure at rest is 150/70. A standard dose of Lexiscan was infused. EKG did not reveal any acute changes. Patient did complain of mild chest pain and mild sweating. FINAL IMPRESSION: 1. Negative Lexiscan stress test. 2. Report on the nuclear images to be given by the radiologist. ARABELLA
--- NOTE | 2016-11-28 12:57 | P.DS ---
Providers Date of admission: 11/24/16 21:53 Expected date of discharge: 11/27/16 Attending physician: Jesus Olivares MD Consults: 11/24/16 21:51 Consult Physician Urgent Consulting Provider: Ricardo Delcid Consult Reason/Comments: Unstable angina Do you want consulting provider notified?: Yes, Notify in am Primary care physician: Chuy Pedraza Hospital Course: Final Diagnoses: #1 unstable angina, status post Lexiscan stress with no reported stress-induced ischemia #2 accelerated hypertension. With hypertensive urgency, improved. #3 history of CAD #4 dyslipidemia #5 previous history of tobacco use Hospital course:This is a 86-year-old gentleman with history of CAD status post a cardiac catheterization in 2012 and PCI done by Dr. Brito comes in to the hospital with complaints of chest pain and left arm pain that is intermittent in nature over the last 4-6 weeks, accelerated hypertension. Troponin 0.012, 0.023, 0.017.EKG was consistent with vague changes with a bifascicular block no ST-T wave changes. Evaluated by cardiology, antihypertensives adjusted. Dyazide added to med regime. Renal ultrasound reported no significant stenosis. Underwent Lexiscan stress test, no stress-induced ischemia. Significant clinical improvement. Cleared by cardiology for discharge. Patient is being discharged home in a stable condition with guarded prognosis. The impression and plan of care has been dictated as directed as a scribe. : I performed a H&P examination of this patient and discussed the same with the dictator. I agree with the dictator's note. Any additional findings/opinions/ etc. will be noted. Patient Condition at Discharge: Stable Plan - Discharge Summary New Discharge Prescriptions: New amLODIPine [Norvasc] 5 mg PO BID #60 tab Triamterene-Hctz 37.5-25Mg [Dyazide 37.5-25 Capsule] 1 each PO DAILY #30 cap Aspirin EC [Ecotrin Low Dose] 81 mg PO DAILY #30 tablet.dr Prieto Magnesium Gluconate [Magonate] 500 mg PO DAILY Losartan [Cozaar] 50 mg PO BID Clopidogrel [Plavix] 75 mg PO DAILY Tamsulosin [Flomax] 0.4 mg PO DAILY Isosorbide Mononitrate ER [Imdur] 60 mg PO BID Simvastatin [Zocor] 20 mg PO HS PARoxetine [Paxil] 20 mg PO DAILY Discontinued amLODIPine [Norvasc] 2.5 mg PO DAILY Discharge Medication List Clopidogrel [Plavix] 75 mg PO DAILY 07/21/14 [History] Isosorbide Mononitrate ER [Imdur] 60 mg PO BID 07/21/14 [History] Losartan [Cozaar] 50 mg PO BID 07/21/14 [History] Magnesium Gluconate [Magonate] 500 mg PO DAILY 07/21/14 [History] PARoxetine [Paxil] 20 mg PO DAILY 07/21/14 [History] Simvastatin [Zocor] 20 mg PO HS 07/21/14 [History] Tamsulosin [Flomax] 0.4 mg PO DAILY 07/21/14 [History] Aspirin EC [Ecotrin Low Dose] 81 mg PO DAILY #30 tablet. 11/27/16 [Rx] Triamterene-Hctz 37.5-25Mg [Dyazide 37.5-25 Capsule] 1 each PO DAILY #30 cap [Rx] amLODIPine [Norvasc] 5 mg PO BID #60 tab 11/27/16 [Rx] Follow up Appointment(s)/Referral(s): Michael Brito MD [STAFF PHYSICIAN] - 11/29/16 2:15 pm Alessio Daley MD [STAFF PHYSICIAN] - 11/30/16 10:00 am (please make apt. prior to dc, new patient) Ambulatory/Diagnostic Orders: Complete Blood Count w/diff [LAB.AMB] Time Frame: 3 Days, Location: Determined By Patient Patient Instructions/Handouts: Angina (DC) Discharge Disposition: HOME SELF-CARE
== END 2016-11-27 16:51 | disposition home or self-care (01) | DRG 303 ==
LOC: EC 20:25 → 6SEL 21:53
PROVIDERS: ADMIT Internal Medicine; ATTEND Internal Medicine
PROC: 4A12XM4 Monitoring of Cardiac Stress, External Approach (ICD-10-PCS; principal; 2016-11-27)
PROC: 3E033HZ Introduction of Radioactive Substance into Peripheral Vein, Percutaneous Approach (ICD-10-PCS; 2016-11-27)
PROC: C22G1ZZ Tomographic (Tomo) Nuclear Medicine Imaging of Myocardium using Technetium 99m (Tc-99m) (ICD-10-PCS; 2016-11-27)
DX: I25.110 Atherosclerotic heart disease of native coronary artery with unstable angina pectoris (principal); I45.3 Trifascicular block; I45.2 Bifascicular block; I50.9 Heart failure, unspecified; I11.0 Hypertensive heart disease with heart failure; I16.0 Hypertensive urgency; E78.5 Hyperlipidemia, unspecified; I70.0 Atherosclerosis of aorta; M19.90 Unspecified osteoarthritis, unspecified site; I25.2 Old myocardial infarction; N28.1 Cyst of kidney, acquired; Z82.49 Family history of ischemic heart disease and other diseases of the circulatory system; Z79.899 Other long term (current) drug therapy; Z87.891 Personal history of nicotine dependence; Z79.02 Long term (current) use of antithrombotics/antiplatelets; Z86.73 Personal history of transient ischemic attack (TIA), and cerebral infarction without residual deficits; Z82.79 Family history of other congenital malformations, deformations and chromosomal abnormalities; Z88.5 Allergy status to narcotic agent; Z88.8 Allergy status to other drugs, medicaments and biological substances; Z91.030 Bee allergy status; Z79.82 Long term (current) use of aspirin; Z95.5 Presence of coronary angioplasty implant and graft; Z96.651 Presence of right artificial knee joint; Z98.49 Cataract extraction status, unspecified eye; Z63.4 Disappearance and death of family member
CPT/HCPCS: 36415; 71020; 78452; 80053; 82088; 82164; 82272; 82550; 82553; 83735; 83835; 83880; 84244; 84443; 84484; 85025; 85379; 85610; 85730; 93005; 93017; 93306; 93975; 94760; 96365; 96366; 96376; 99291

== ENCOUNTER 2016-12-09 22:45 | Inpatient (IN) | payer OTHER, MEDICARE ==
[2016-12-09 23:32] LABS: Basophils # (A) 0.1 k/uL (0-0.2); Basophils % (A) 1 %; CH 34.1; CHCM 36.2; Eosinophils # (A) 0.4 k/uL (0-0.7); Eosinophils % (A) 4 %; HCT 45.4 % (39.0-53.0); HDW 2.59; HGB 15.7 gm/dL (13.0-17.5); Luc # (Auto) 0.22; Luc % (Auto) 2; Lymphocytes # (A) 1.6 k/uL (1.0-4.8); Lymphocytes % (A) 17 %; MCH 32.8 pg (25.0-35.0); MCHC 34.7 g/dL (31.0-37.0); MCV 94.6 fL (80.0-100.0); Mean Platelet Volume 6.7; Monocytes # (A) 0.7 k/uL (0-1.0); Monocytes % (A) 8 %; Neutrophils # (A) 6.3 k/uL (1.3-7.7); Neutrophils % (A) 68 %; RDW 13.7 % (11.5-15.5); WBC 9.3 k/uL (3.8-10.6); WBC (Perox) 8.95
[2016-12-09 23:41] LABS: ALT 36 U/L (21-72); AST 22 U/L (17-59); Alkaline Phosphatase 67 U/L (38-126); Anion Gap 10 mmol/L; Blood Urea Nitrogen 14 mg/dL (9-20); Calcium 9.1 mg/dL (8.4-10.2); Carbon Dioxide 21 mmol/L (22-30); Chloride 102 mmol/L (98-107); Glucose 100 mg/dL (74-99); Non-African American GFR(MDRD) >60 (>60 ml/min/1.73 sqM); Potassium 4.3 mmol/L (3.5-5.1); Sodium 133 mmol/L (137-145); Total Bilirubin 0.7 mg/dL (0.2-1.3); Total Protein 6.5 g/dL (6.3-8.2)
[2016-12-09 23:43] LABS: Appearance,Urine Clear (Clear); Bilirubin,Urine Negative (Negative); Glucose,Urine (UA) Negative (Negative); Ketones,Urine Negative (Negative); Leukocyte Esterase,Urine Negative (Negative); Nitrite,Urine Negative (Negative); Protein,Urine Negative (Negative); Specific Gravity,Urine 1.009 (1.001-1.035); UA Billing (MACRO vs. MICRO) CHEM; Urobilinogen,Urine <2.0 mg/dL (<2.0)
--- NOTE | 2016-12-10 00:07 | ED ---
General Adult HPI - General Chief complaint: Psychiatric Symptoms Stated complaint: Mental Health Time Seen by Provider: 12/09/16 23:11 Source: patient, family, RN notes reviewed Mode of arrival: ambulatory Limitations: no limitations - History of Present Illness Initial comments: 86-year-old male presents to the emergency department with a chief complaint of feeling paranoid. Patient states that he is never been diagnosed with any psychiatric history. Patient states he saw a psychiatrist back in the 70s. Patient will not provide any other history. He denies any suicidal or homicidal thoughts. Per the son he has a history of schizophrenia. He's been locking himself in his bedroom thinking that his is out to get him he has been using condoms to protect himself.Patient denies any recent fever, chills, shortness of breath, chest pain, back pain, abdominal pain, nausea vomiting, numbness or tingling, dysuria or hematuria, constipation or diarrhea, headaches or visual changes, or any other current symptoms. - Related Data Home Medications Medication Instructions Recorded Confirmed Clopidogrel [Plavix] 75 mg PO DAILY 07/21/14 12/09/16 Isosorbide Mononitrate ER [Imdur] 60 mg PO BID 07/21/14 12/09/16 Losartan [Cozaar] 50 mg PO BID 07/21/14 12/09/16 Magnesium Gluconate [Magonate] 500 mg PO DAILY 07/21/14 12/09/16 PARoxetine [Paxil] 20 mg PO DAILY 07/21/14 12/09/16 Simvastatin [Zocor] 20 mg PO HS 07/21/14 12/09/16 Tamsulosin [Flomax] 0.4 mg PO DAILY 07/21/14 12/09/16 Previous Rx's Medication Instructions Recorded Aspirin EC [Ecotrin Low Dose] 81 mg PO DAILY #30 tablet. 11/27/16 Triamterene-Hctz 37.5-25Mg 1 each PO DAILY #30 cap 11/27/16 [Dyazide 37.5-25 Capsule] amLODIPine [Norvasc] 5 mg PO BID #60 tab 11/27/16 Allergies Allergy/AdvReac Type Severity Reaction Status Date / Time dutasteride [From Avodart] AdvReac Rapid Verified 12/09/16 23:02 Heart Rate morphine AdvReac PASS OUT Verified 12/09/16 23:02 venom-honey bee AdvReac PASS OUT Verified 12/09/16 23:02 [bee venom (honey bee)] Review of Systems ROS Statement: Those systems with pertinent positive or pertinent negative responses have been documented in the HPI. ROS Other: All systems not noted in ROS Statement are negative. Past Medical History Past Medical History: Coronary Artery Disease (CAD), Heart Failure, CVA/TIA, Hypertension, Myocardial Infarction ([place]), Osteoarthritis (OA) Additional Past Medical History / Comment(s): patient states he had a stroke a couple years ago but did not go to the hospital for it. Said his mouth and hands went numb and was unable to see. Symptoms lasted a couple hours and then improved. Last Myocardial Infarction Date:: 2012 History of Any Multi-Drug Resistant Organisms: None Reported Past Surgical History: Ear Surgery, Heart Catheterization With Stent, Joint Replacement Additional Past Surgical History / Comment(s): Rt knee, cataract removal Past Anesthesia/Blood Transfusion Reactions: No Reported Reaction Date of Last Stent Placement:: 2012 Past Psychological History: No Psychological Hx Reported, Depression Smoking Status: Former smoker Past Alcohol Use History: None Reported Past Drug Use History: None Reported - Past Family History Son(s) Family Medical History: Coronary Artery Disease (CAD) Additional Family Medical History / Comment(s): son recently from heart disease, was born with heart defect. General Exam Limitations: no limitations General appearance: alert, in no apparent distress Head exam: Present: atraumatic, normocephalic, normal inspection ENT exam: Present: normal exam, mucous membranes moist Neck exam: Present: normal inspection. Absent: tenderness, meningismus, lymphadenopathy Respiratory exam: Present: normal lung sounds bilaterally. Absent: respiratory distress, wheezes, rales, rhonchi, stridor Cardiovascular Exam: Present: regular rate, normal rhythm, normal heart sounds. Absent: systolic murmur, diastolic murmur, rubs, gallop, clicks Neurological exam: Present: alert, oriented X3 Psychiatric exam: Present: normal affect, normal mood Course Vital Signs 12/09/16 22:56 Temperature 97.1 F L Pulse Rate 66 Respiratory 18 Rate Blood Pressure 206/98 O2 Sat by Pulse 97 Oximetry Medical Decision Making - Medical Decision Making 86-year-old male presents to the emergency room chief complaint of paranoia. At this time the patient does not appear to be Suffering from any acute medical emergencies. The patient is cleared to be evaluated by psychiatry. At this time patient was evaluated by Psychiatry and they are recommending psychiatric patient. This time we are pending placement for the patient. - Lab Data Result diagrams: 12/09/16 23:20 12/09/16 23:20 Lab Results 12/09/16 12/09/16 12/09/16 Range/Units 23:20 23:20 23:40 WBC 9.3 (3.8-10.6) k/uL RBC 4.80 (4.30-5.90) m/uL Hgb 15.7 (13.0-17.5) gm/dL Hct 45.4 (39.0-53.0) % MCV 94.6 (80.0-100.0) fL MCH 32.8 (25.0-35.0) pg MCHC 34.7 (31.0-37.0) g/dL RDW 13.7 (11.5-15.5) % Plt Count 313 (150-450) k/uL Neutrophils % 68 % Lymphocytes % 17 % Monocytes % 8 % Eosinophils % 4 % Basophils % 1 % Neutrophils # 6.3 (1.3-7.7) k/uL Lymphocytes # 1.6 (1.0-4.8) k/uL Monocytes # 0.7 (0-1.0) k/uL Eosinophils # 0.4 (0-0.7) k/uL Basophils # 0.1 (0-0.2) k/uL Sodium 133 L (137-145) mmol/L Potassium 4.3 (3.5-5.1) mmol/L Chloride 102 (98-107) mmol/L Carbon Dioxide 21 L (22-30) mmol/L Anion Gap 10 mmol/L BUN 14 (9-20) mg/dL Creatinine 0.80 (0.66-1.25) mg/dL Est GFR (MDRD) Af Amer >60 (>60 ml/min/1.73 sqM) Est GFR (MDRD) Non-Af >60 (>60 ml/min/1.73 sqM) Glucose 100 H (74-99) mg/dL Calcium 9.1 (8.4-10.2) mg/dL Total Bilirubin 0.7 (0.2-1.3) mg/dL AST 22 (17-59) U/L ALT 36 (21-72) U/L Alkaline Phosphatase 67 (38-126) U/L Total Protein 6.5 (6.3-8.2) g/dL Albumin 3.9 (3.5-5.0) g/dL Urine Color Yellow Urine Appearance Clear (Clear) Urine pH 6.0 (5.0-8.0) Ur Specific [place] 1.009 (1.001-1.035) Urine Protein Negative (Negative) Urine Glucose (UA) Negative (Negative) Urine Ketones Negative (Negative) Urine Blood Negative (Negative) Urine Nitrite Negative (Negative) Urine Bilirubin Negative (Negative) Urine Urobilinogen <2.0 (<2.0) mg/dL Ur Leukocyte Esterase Negative (Negative) Urine Opiates Screen Not Detected (NotDetected) Ur Oxycodone Screen Not Detected (NotDetected) Urine Methadone Screen Not Detected (NotDetected) Ur Propoxyphene Screen Not Detected (NotDetected) Ur Barbiturates Screen Not Detected (NotDetected) U Tricyclic Antidepress Not Detected (NotDetected) Ur Phencyclidine Scrn Not Detected (NotDetected) Ur Amphetamines Screen Not Detected (NotDetected) U Methamphetamines Scrn Not Detected (NotDetected) U Benzodiazepines Scrn Not Detected (NotDetected) Urine Cocaine Screen Not Detected (NotDetected) U Marijuana (THC) Screen Not Detected (NotDetected) Disposition Clinical Impression: Acute psychosis Disposition: TRANSFER TO PSYCH HOSP/UNIT Referrals: Jacob Cline DO [Primary Care Provider] - 1-2 days
[2016-12-10] MEDS ORDERED: amLODIPine 5 MG TAB PO STA (08:49)
[2016-12-10] MEDS ORDERED: ASPIRIN 81 MG CHEW PO STA (08:49)
[2016-12-10] MEDS ORDERED: LOSARTAN 50 MG TAB PO STA ×2 (08:50→18:45)
[2016-12-10] MEDS ORDERED: ISOSORBIDE MONONITRATE ER 60 MG TAB.ER.24H PO STA ×2 (08:50→18:46)
[2016-12-10] MEDS ORDERED: CLOPIDOGREL 75 MG TAB PO STA (08:51)
[2016-12-10] MEDS ORDERED: TAMSULOSIN 0.4 MG CAP.ER.24H PO STA (08:51)
[2016-12-10] MEDS ORDERED: PARoxetine 20 MG TAB PO STA (08:51)
[2016-12-10] MEDS ORDERED: TRIAMTERENE-HCTZ 37.5-25MG 1 EACH CAP PO SCH (09:00)
[2016-12-10] MEDS ORDERED: TRIAMTERENE-HCTZ 37.5-25MG 1 EACH CAP PO ONE (09:15)
[2016-12-10] MEDS ORDERED: ATORVASTATIN 20 MG TAB PO STA (19:00)
[2016-12-10] MEDS ORDERED: LORazepam 2 MG/ML SYRINGE IV STA (21:10)
[2016-12-11] MEDS: TRIAMTERENE-HCTZ 37.5-25MG 1 EACH CAP PO SCH (08:01)
[2016-12-11] MEDS: ISOSORBIDE MONONITRATE ER 60 MG TAB.ER.24H PO SCH ×2 (08:02→21:00)
[2016-12-11] MEDS: LOSARTAN 50 MG TAB PO SCH ×2 (08:02→21:00)
[2016-12-11] MEDS: ASPIRIN 81 MG CHEW PO SCH (08:06)
[2016-12-11] MEDS: TAMSULOSIN 0.4 MG CAP.ER.24H PO SCH (08:06)
[2016-12-11] MEDS: amLODIPine 5 MG TAB PO SCH ×2 (08:06→21:00)
[2016-12-11] MEDS: CLOPIDOGREL 75 MG TAB PO SCH (08:06)
[2016-12-11] MEDS ORDERED: PARoxetine 20 MG TAB PO SCH (09:00)
[2016-12-11] MEDS ORDERED: MAGNESIUM OXIDE 400 MG TAB PO SCH (12:00)
[2016-12-11] MEDS ORDERED: MAG HYDROX/AL HYDROX/SIMETH 30 ML CUP PO PRN ×2 (16:38→17:20)
[2016-12-11] MEDS ORDERED: MAGNESIUM HYDROXIDE 2,400 MG/10 ML CUP PO PRN ×2 (16:38→17:20)
[2016-12-11] MEDS ORDERED: ACETAMINOPHEN TAB 325 MG TAB PO PRN ×2 (16:38→17:20)
[2016-12-11 17:50] VITALS: BMI 28.1
[2016-12-11] MEDS: ATORVASTATIN 10 MG TAB PO SCH (21:00)
[2016-12-12] MEDS: amLODIPine 5 MG TAB PO SCH ×2 (08:27→21:31)
[2016-12-12] MEDS: LOSARTAN 50 MG TAB PO SCH ×2 (08:27→21:31)
[2016-12-12] MEDS: CLOPIDOGREL 75 MG TAB PO SCH (08:27)
[2016-12-12] MEDS: TAMSULOSIN 0.4 MG CAP.ER.24H PO SCH (08:27)
[2016-12-12] MEDS: ISOSORBIDE MONONITRATE ER 60 MG TAB.ER.24H PO SCH ×2 (08:28→21:30)
[2016-12-12] MEDS: TRIAMTERENE-HCTZ 37.5-25MG 1 EACH CAP PO SCH (08:28)
[2016-12-12] MEDS: ASPIRIN 81 MG CHEW PO SCH (08:28)
--- NOTE | 2016-12-12 14:48 | P.CONS ---
History of Present Illness - Reason for Consult Consult date: 12/12/16 Advice regarding hypertension requested by psych. - History of Present Illness This 86-year-old gentleman with a past medical history of coronary artery disease are failure hypertension CVA TIA myocardial infarction DJD being followed by [facility] and Dr. Quintanilla in the [facility] setting was admitted for psychiatric evaluation. His son apparently passed a few weeks ago. The patient was having emotional issues and psychiatric issues after that. The patient was not taking enough food. The patient also had a past history of psychiatric issues in 1970s per family. Possibly schizophrenia. There is no history of chest pain. No palpitations shortness of breath. Patient is complaining of some minimal right leg pain. Review of Systems REVIEW OF SYSTEMS: ENT: No diminished vision or hearing. CARDIOVASCULAR: Mentioned earlier. RESPIRATORY: As mentioned earlier. GI: No nauscea, vomiting or diarrhea. : No dysuria or retention. NERVOUS SYSTEM: No numbness or weakness. ALLERGY/IMMUNOLOGY: No asthma or hay fever. MUSCULOSKELETAL: As mentioned earlier. HEMATOLOGY/ONCOLOGY: No history of anemia. ENDOCRINE: No history of diabetes or hypothyroidism. CONSTITUTIONAL: As mentioned earlier. DERMATOLOGY: Negative. PSYCHIATRY: Mentioned earlier. RHEUMATOLOGY: Negative. Past Medical History Past Medical History: Coronary Artery Disease (CAD), Heart Failure, CVA/TIA, Hypertension, Myocardial Infarction ([place]), Osteoarthritis (OA) Additional Past Medical History / Comment(s): patient states he had a stroke a couple years ago but did not go to the hospital for it. Said his mouth and hands went numb and was unable to see. Symptoms lasted a couple hours and then improved. Last Myocardial Infarction Date:: 2012 History of Any Multi-Drug Resistant Organisms: None Reported Past Surgical History: Ear Surgery, Heart Catheterization With Stent, Joint Replacement Additional Past Surgical History / Comment(s): Rt knee, cataract removal Past Anesthesia/Blood Transfusion Reactions: No Reported Reaction Date of Last Stent Placement:: 2012 Past Psychological History: No Psychological Hx Reported Additional Psychological History / Comment(s): Per pt. in the 1970's went to a psychiatrist/therapist for a short peroid of time. Smoking Status: Former smoker Past Alcohol Use History: None Reported Past Drug Use History: None Reported - Past Family History Son(s) Family Medical History: Coronary Artery Disease (CAD) Additional Family Medical History / Comment(s): son recently from heart disease, was born with heart defect. Medications and Allergies Home Medications Medication Instructions Recorded Confirmed Type Clopidogrel [Plavix] 75 mg PO DAILY 07/21/14 12/10/16 History Isosorbide Mononitrate ER [Imdur] 60 mg PO BID 07/21/14 12/10/16 History Losartan [Cozaar] 50 mg PO BID 07/21/14 12/10/16 History Magnesium Gluconate [Magonate] 500 mg PO DAILY 07/21/14 12/10/16 History PARoxetine [Paxil] 20 mg PO DAILY 07/21/14 12/10/16 History Simvastatin [Zocor] 20 mg PO HS 07/21/14 12/10/16 History Tamsulosin [Flomax] 0.4 mg PO DAILY 07/21/14 12/10/16 History Aspirin EC [Ecotrin Low Dose] 81 mg PO DAILY #30 tablet. 11/27/16 12/10/16 Rx Triamterene-Hctz 37.5-25Mg 1 each PO DAILY #30 cap 11/27/16 12/10/16 Rx [Dyazide 37.5-25 Capsule] amLODIPine [Norvasc] 5 mg PO BID #60 tab 11/27/16 12/10/16 Rx Allergies Allergy/AdvReac Type Severity Reaction Status Date / Time dutasteride [From Avodart] AdvReac Rapid Verified 12/10/16 07:47 Heart Rate morphine AdvReac PASS OUT Verified 12/10/16 07:47 venom-honey bee AdvReac PASS OUT Verified 12/10/16 07:47 [bee venom (honey bee)] Physical Exam Vitals: Vital Signs Temp Pulse Pulse Resp BP BP Pulse Ox 12/12/16 07:21 98.3 F 70 20 179/83 12/11/16 21:02 68 16 161/75 12/11/16 17:25 97.2 F L 61 20 189/81 12/11/16 17:16 98.3 F 76 16 141/78 99 Intake and Output 12/11/16 12/12/16 12/12/16 22:59 06:59 14:59 Other: Weight 84.1 kg 84.1 kg Patient Weight 12/13/16 06:59 Weight 84.1 kg On exam, alert and oriented x3. HEENT: Conjunctivae normal. eyes normal. NECK: No JVD. No thyroid enlargement. No LNs CARDIOVASCULAR: S1, S2 muffled. No murmur RESPIRATION: Breath sounds diminished in the bases. No rhonchi or crackles. No bronchial breathing. ABDOMEN: Soft, nontender . No guarding. no masses palpable. No ascites, No hepatosplenomegaly.Bowel sounds heard. LEGS: No edema. no swelling no tenderness or discomfort in moving the right leg at this time. NERVOUS SYSTEM: Cranial N 2-12 grossly normal. Moves all 4 limbs. No nystagmus no diplopia. No focal deficits. No sensory deficit. No signs of cerebellar dysfucntion. Skin: no ulcer no rash Joints: No active swelling. No inflammation. Lymphatic system. No LN neck axilla or groin. Results CBC & Chem 7: 12/09/16 23:20 12/09/16 23:20 Assessment and Plan Plan: Assessment 1. Acute psychosis or depression for evaluation. 2. History of hypertension 3. History of coronary disease 4. History of CHF. 5. History of CVA TIA 6. History of myocardial infarction 7. History of DJD. 8. Mild hyponatremia Plan In this 86 gentleman was admitted with the psych evaluation at this time recommend to continue the home medications. Monitor blood pressure closely. Patient had a mild hyponatremia. I would recommend to recheck in the outpatient setting. Otherwise we'll follow the patient closely. Patient may be asked to follow-up with Dr. Quintanilla closely after discharge. Thank you for letting us participate in the patient.
--- NOTE | 2016-12-12 20:43 | P.HP ---
Psychiatric H&P - . History & Physical: IDENTIFYING DATA: Name: Stan Duggan : 1930 HPI: Stan Duggan is an 86-year-old male who is admitted to the inpatient unit for psychiatric evaluation due to concerns from his son due to delusional- like behaviors at home where patient was accusing son and patient's committing acts they did or did not actually do. Patient is able to clearly recall these events and states that the time he said acts were true but now recognizes there were not. Patient reports that these delusions like behaviors began with a depressive episode after his son after a heart attack in September 2016. Patient has survived four previous heart attacks and is in overall good health and has a profound sense of guilt and loss that he struggles to cope with the day-to-day basis. Patient states that he feels like he is the most depressed a man can be. Patient's only significant psychiatric history is episode of anxiety 1970s where he saw a psychotherapist received approximate 4 months of psychotherapy which he graduated from due to significant improvement in his symptoms. Despite patient's multiple medical commodities sees overall in good health. He appears much younger than his stated age. He is much more active than would be expected from the average 86- year-old every morning however he recently endorses a major depressive episode with a depressed mood, anhedonia, decreased appetite, difficulty falling asleep , difficulty staying asleep, feelings of hopelessness due to the loss of his son , difficulty concentrating. Patient denies any thoughts of wanting to hurt himself or thoughts of suicide or homicide. Patient is currently the caregiver for his who is deaf and has multiple medical problems and whose health is overall poor. He states his is taking the of their son much worse than he he is and patient struggles to keep her comfortable despite his own personal grief. Patient reports that he feels like would benefit from a change in his medication regimen and states he would welcome any help that could be provided. PAST PSYCHIATRIC HISTORY: -none PMH: -HTN -CAD -CVA -TIA -RI x 4 -DJD ALLERGIES: -dutasteride -morphine -honey bee venom MEDICATIONS: -Plavix -IImdur -Cozaar -Zocor -Flomax -ASA -Dyazide -Paxil PSYCHIATRIC HISTORY: -psychotherapy in the s for anxiety for 4-months that was terminated by therapist due to patient improving and therapist feeling patient would no longer benefit from ongoing treatment SURGICAL HISTORY: -CABG -knee replacement CHEMICAL DEPENDENCY HISTORY: denies FAMILY PSYCHIATRIC HISTORY: -denies FAMILY HISTORY: -[place], [place], youngest son September 2016 from [place] SOCIAL HISTORY: -occupational: retired -environmental: lives at home with 84 year old who has multiple medical problems and is deaf cheondoism: Jain -: sexual orientation: heterosexual safety at home: patient feels safe at home MENTAL STATUS EXAM: Appearance: Alert, well groomed, appears younger than stated age, limp due to knee replacement Behavior: no psychomotor agitation or psychomotor retardation, fair eye contact Attitude: Cooperative Speech: Normal rate, rhythm, and fluency, and articulation; primary language Guyanese Mood: Sad Affect: Appropriate, mood congruent, constricted range Thought processes: Linear, organized Thought content: Patient does not appear to be responding to internal stimuli; patient denies auditory and visual hallucinations, no delusions or paranoia Insight: Fair Judgment: Good Cognitive: Oriented to all 4 spheres, normal intelligence STRENGTHS/WEAKNESSES: -strong family support, fair insight, goal oriented, difficulty expressing emotions at times that has made coping with of his son much harder on patient especially since son of a [place] and patient has survived 4. 12/12/16 20:40 Assessment and Plan (1) Major depressive disorder, single episode, severe with psychotic features Status: Acute (2) Complicated bereavement Status: Acute Plan: 1. Continue hospitalization 2. Discontinue Paxil; patient is at high bleeding risk given he takes both Plavix and aspirin 3. Start Remeron 15 mg by mouth daily at bedtime; Remeron does not interact with platelet aggregation, has a potent antiemetic effect, increase his appetite , and helps with insomnia, in addition to depression. Patient denies any significant history of falls. 4. Additional collateral is needed to help clarify the son's concern regarding patient's reported paranoia which patient describes in a manner more consistent with catastrophic grief due to the of his son more than true psychosis Time with Patient: Greater than 30
[2016-12-12] MEDS: MIRTAZAPINE 15 MG TAB PO SCH (21:30)
[2016-12-12] MEDS: ATORVASTATIN 10 MG TAB PO SCH (21:30)
[2016-12-13] MEDS: TAMSULOSIN 0.4 MG CAP.ER.24H PO SCH (07:59)
[2016-12-13] MEDS: TRIAMTERENE-HCTZ 37.5-25MG 1 EACH CAP PO SCH (07:59)
[2016-12-13] MEDS: ISOSORBIDE MONONITRATE ER 60 MG TAB.ER.24H PO SCH ×2 (07:59→20:53)
[2016-12-13] MEDS: ASPIRIN 81 MG CHEW PO SCH (08:00)
[2016-12-13] MEDS: LOSARTAN 50 MG TAB PO SCH ×2 (08:00→20:53)
[2016-12-13] MEDS: amLODIPine 5 MG TAB PO SCH ×2 (08:00→20:53)
[2016-12-13] MEDS: CLOPIDOGREL 75 MG TAB PO SCH (08:00)
[2016-12-13] MEDS: PANTOPRAZOLE 40 MG TABLET PO SCH (10:23)
[2016-12-13] MEDS: MIRTAZAPINE 15 MG TAB PO SCH (20:53)
[2016-12-13] MEDS: ATORVASTATIN 10 MG TAB PO SCH (20:53)
--- NOTE | 2016-12-13 22:15 | P.PN ---
Subjective Principal diagnosis: Major depressive disorder. recurrent, severe with psychotic features Patient is awake, alert, cooperative with interview. He reports tolerating Remeron well last night with "the best sleep I've had in a long time." Patient also reports that his nausea has resolved and he was able to eat his entire breakfast this morning without any problems. Patient does note mild dizziness after abruptly standing first thing this morning. Patient was educated at length about orthostatic hypotension and how to take appropriate measures to prevent falls. Patient was informed that the dose can also be cut in half if the dizziness becomes problematic in the future. Patient is agreeable with current treatment plan and expressed no new concerns. He spoke with his family and is eager to discharge home to his . At this time, patient denies SI/HI/ AVH. No signs of paranoia or delusional behavior are present at this time. Objective - Vital Signs Vital signs: Vital Signs Temp 98.1 F 12/13/16 07:03 Pulse 78 12/13/16 20:54 Resp 16 12/13/16 20:54 BP 147/67 12/13/16 20:54 Pulse Ox 99 12/11/16 17:16 - Psychiatric Psychiatric Comment(s): NORMAL MENTAL STATUS EXAM: Appearance: alert, well groomed, appears younger than stated age, steady gait Behavior: no psychomotor agitation or psychomotor retardation, fair eye contact Attitude: cooperative Speech: normal rate, rhythm, fluency, articulation; and prosody; primary language: Montserratian Mood: "pretty good" Affect: congruent, range: full Thought processes: linear, organized Thought content: patient does not appear to be responding to internal stimuli ; patient denies auditory and visual hallucinations, no delusions and is not exhibiting any overt signs of psychosis, denies SI/HI Insight: fair Judgment: good Cognitive: oriented to all 4 spheres, normal to above average intelligence - Labs CBC & Chem 7: 12/09/16 23:20 12/09/16 23:20 Assessment and Plan (1) Major depressive disorder, single episode, severe with psychotic features Status: Acute (2) Complicated bereavement Status: Acute Plan: 1. continue current regimen 2. reassess if patient has any additional problems with orthostasis tomorrow ( this is unlikely) 3. patient's nurse has requested patient's family meeting be moved to tomorrow; pending family meeting patient may discharge home to tomorrow and if not 02/2017.
[2016-12-14] MEDS: TAMSULOSIN 0.4 MG CAP.ER.24H PO SCH (07:56)
[2016-12-14] MEDS: TRIAMTERENE-HCTZ 37.5-25MG 1 EACH CAP PO SCH (07:56)
[2016-12-14] MEDS: amLODIPine 5 MG TAB PO SCH ×2 (07:56→20:12)
[2016-12-14] MEDS: CLOPIDOGREL 75 MG TAB PO SCH (07:56)
[2016-12-14] MEDS: PANTOPRAZOLE 40 MG TABLET PO SCH (07:57)
[2016-12-14] MEDS: LOSARTAN 50 MG TAB PO SCH ×2 (07:57→20:13)
[2016-12-14] MEDS: ISOSORBIDE MONONITRATE ER 60 MG TAB.ER.24H PO SCH ×2 (07:57→20:13)
[2016-12-14] MEDS: ASPIRIN 81 MG CHEW PO SCH (07:57)
--- NOTE | 2016-12-14 19:28 | P.PN ---
Subjective Principal diagnosis: Major depressive disorder. recurrent, severe with psychotic features Patient reports significant improvements in malaise, appetite, and sleep since starting Remeron however today he reports that he continues to have dizziness that lasted for over 2 hour after he woke up this morning. At one point, he reports he sat down because while his balance was steady taking the education provided yesterday he didn't want to risk a fall. Patient's family meeting had unfortunately been re-scheduled to today with plan to discharge after said meeting but discharge was canceled to observe how patient tolerates 7.5-mg. Objective - Vital Signs Vital signs: Vital Signs Temp 98.1 F 12/13/16 07:03 Pulse 68 12/14/16 07:55 Resp 18 12/14/16 07:55 BP 135/60 12/14/16 07:55 Pulse Ox 99 12/11/16 17:16 - Psychiatric Psychiatric: Present: A&O x's 3, appropriate affect, intact judgment & insight - Labs CBC & Chem 7: 12/09/16 23:20 12/09/16 23:20 Assessment and Plan (1) Major depressive disorder, single episode, severe with psychotic features Status: Acute (2) Complicated bereavement Status: Acute Plan: 1. decrease Remeron to 7.5-mg PO QHS 2. RN communication to observe patient over the weekend and document if dizziness worsens or improves 3. patient will discharge home to on 12/17/2016
[2016-12-14] MEDS: ATORVASTATIN 10 MG TAB PO SCH (20:12)
[2016-12-14 20:17] VITALS: RESP 16
[2016-12-14] MEDS ORDERED: DOCUSATE 100 MG CAP PO PRN (20:24)
[2016-12-14] MEDS ORDERED: MIRTAZAPINE 15 MG TAB PO SCH (21:00)
[2016-12-15] MEDS ORDERED: SODIUM CHLORIDE 0.9% 1,000 ML IV ONE (03:20)
[2016-12-15 03:39] LABS: Glucose,Whole Blood 129 mg/dL (75-99)
--- NOTE | 2016-12-15 04:42 | CT ---
EXAM: CT Head Without Intravenous Contrast CLINICAL HISTORY: Reason: post fall TECHNIQUE: Axial computed tomography images of the head/brain without intravenous contrast. CTDI is 60.3 mGy and DLP is 1176.8 mGy-cm. This CT exam was performed using one or more of the following dose reduction techniques: automated exposure control, adjustment of the mA and/or kV according to patient size, and/or use of iterative reconstruction technique. COMPARISON: 07/21/14 FINDINGS: Brain: Mild periventricular low density likely chronic small vessel ischemic change. No hemorrhage. Ventricles: Unremarkable. No ventriculomegaly. Bones/joints: Unremarkable. No acute fracture. Soft tissues: Unremarkable. Sinuses: Minimal mucosal thickening in the maxillary sinuses. Mild nodular mucosal thickening in the left sphenoid sinus. Mild mucosal thickening in the ethmoid sinuses. Mastoid air cells: Unremarkable as visualized. No mastoid effusion. Other findings: Mild diffuse atrophy. IMPRESSION: No acute intracranial hemorrhage or mass effect. Diffuse atrophy and chronic small vessel ischemic change Additional nonacute findings. EXAM: CT Cervical Spine Without Intravenous Contrast CLINICAL HISTORY: Reason: post fall TECHNIQUE: Axial computed tomography images of the cervical spine without intravenous contrast. CTDI is 22.4 mGy and DLP is 553.8 mGy-cm. This CT exam was performed using one or more of the following dose reduction techniques: automated exposure control, adjustment of the mA and/or kV according to patient size, and/or use of iterative reconstruction technique. COMPARISON: None FINDINGS: Vertebrae: Mild reversal of normal cervical lordosis. Degenerative endplate changes with marginal osteophyte formation at multiple levels. Calcification of the transverse ligament posterior to the C2 level. Ossification posterior to C3 and C4 likely ossification along the posterior longitudinal ligament. No acute fracture. Other bones/joints: Disc osteophytic bulges at multiple levels. Soft tissues: Unremarkable. Vasculature: Tiny foci of air near the right subclavian vein likely iatrogenic. Lung apices: Unremarkable as visualized. DISCS/SPINAL CANAL/NEURAL FORAMINA: C2-C3: Mild disc osteophytic bulge . Mild left neural foraminal narrowing suspected. C3-C4: Moderate to severe stenosis at C3-4 due to ossification of the posterior longitudinal ligament and disc osteophytic bulge. Facet arthropathy with bony hypertrophy, more pronounced on the left at this level. C4-C5: Mild spinal stenosis due to disc osteophytic bulge. Mild to moderate bilateral neural foraminal narrowing suspected. C5-C6: Mild spinal stenosis suspected. Multiple moderate bilateral neural foraminal narrowing suspected. C6-C7: Bulky anterior osteophyte formation at C6-7. Mild to moderate disc osteophytic bulge suspected at C6-7. Right neural foraminal narrowing suspected at this level due to lateralizing disc osteophytic bulge and facet arthropathy. C7-T1: Mild disc osteophytic bulge at C7-T1. No stenosis. Other findings: Calcified/ossified lesion in the right lateral aspect of L3 spinous process likely chronic and benign. Diffuse demineralization of the bones. IMPRESSION: No acute bony abnormality. Slight reversal of normal cervical lordosis. Multilevel degenerative disc disease as described contributing to spinal stenosis at multiple levels. Diffuse osteopenia
[2016-12-15 08:32] LABS: Calcium 8.6 mg/dL (8.4-10.2); Potassium 4.7 mmol/L (3.5-5.1)
[2016-12-15] MEDS: PANTOPRAZOLE 40 MG TABLET PO SCH (08:51)
[2016-12-15] MEDS: TAMSULOSIN 0.4 MG CAP.ER.24H PO SCH (10:20)
[2016-12-15] MEDS: ASPIRIN 81 MG CHEW PO SCH (10:20)
[2016-12-15] MEDS: CLOPIDOGREL 75 MG TAB PO SCH (10:20)
[2016-12-15] MEDS: amLODIPine 5 MG TAB PO SCH (10:25)
[2016-12-15] MEDS: TRIAMTERENE-HCTZ 37.5-25MG 1 EACH CAP PO SCH (10:26)
[2016-12-15] MEDS: ISOSORBIDE MONONITRATE ER 60 MG TAB.ER.24H PO SCH (10:26)
[2016-12-15] MEDS: LOSARTAN 50 MG TAB PO SCH (10:26)
[2016-12-15 10:59] VITALS: BP 117/56; PULSE 63; TEMP 98.4
--- NOTE | 2016-12-15 12:25 | P.PN ---
Progress Note - Text I was contacted regarding this 86-year-old gentleman last evening when he apparently fell while using the bathroom, patient was seen by the 18 and he was given a bolus of IV fluids as well as having a CAT scan done of his spine and head which revealed no acute injuries. Patient was also placed on orthostatic blood pressures and a basic metabolic panel was ordered for this morning which revealed a sharply elevated creatinine to 1.4. I spoke with Dr. Burch about transferring the patient to the medical floor due to his multiple cardiac problems, reports from the family that the patient had been having episodes of dizziness at home and his recent fall on the inpatient psychiatric unit. I discontinued his Remeron and suggested to Dr. Olivares that we not restart any antidepressant medication at this time. Patient will be transferred to a medical floor to stabilize his condition and evaluate his renal function. Psychiatry will continue to follow the patient on medical floor as consultants. Patient's family was notified of his transfer to the medical floor.
== END 2016-12-15 11:45 | disposition short-term general hospital (02) | DRG 885 ==
LOC: EC 22:45 → SUPCPDRO 22:45 → 3MHU 12-11 16:12
PROVIDERS: ADMIT Psychiatry & Neurology Psychiatry; ATTEND Psychiatry & Neurology Psychiatry
DX: F33.3 Major depressive disorder, recurrent, severe with psychotic symptoms (principal); E87.1 Hypo-osmolality and hyponatremia; I11.0 Hypertensive heart disease with heart failure; I50.9 Heart failure, unspecified; Z95.1 Presence of aortocoronary bypass graft; F43.21 Adjustment disorder with depressed mood; G47.00 Insomnia, unspecified; I25.10 Atherosclerotic heart disease of native coronary artery without angina pectoris; I25.2 Old myocardial infarction; W19.XXXA Unspecified fall, initial encounter; Z79.02 Long term (current) use of antithrombotics/antiplatelets; Z79.899 Other long term (current) drug therapy; Z82.49 Family history of ischemic heart disease and other diseases of the circulatory system; Z86.73 Personal history of transient ischemic attack (TIA), and cerebral infarction without residual deficits; Z87.891 Personal history of nicotine dependence; Z96.659 Presence of unspecified artificial knee joint
CPT/HCPCS: 36415; 70450; 72125; 80048; 80053; 80306; 81003; 82075; 84443; 85025; 93005; 96374; 99285

== ENCOUNTER 2016-12-15 11:08 | Inpatient (IN) | payer OTHER, MEDICARE ==
[2016-12-15 12:42] VITALS: BMI 27.3
[2016-12-15] MEDS ORDERED: ALPRAZolam 0.25 MG TAB PO PRN (14:05)
[2016-12-15] MEDS ORDERED: MELATONIN 3 MG TABLET PO PRN (14:05)
[2016-12-15] MEDS ORDERED: ACETAMINOPHEN TAB 325 MG TAB PO PRN (14:05)
[2016-12-15] MEDS ORDERED: NALOXONE 0.4 MG/ML 1 ML VIAL IV PRN (14:05)
--- NOTE | 2016-12-15 15:00 | XR ---
EXAMINATION TYPE: XR chest 1V portable DATE OF EXAM: 12/15/2016 COMPARISON: Prior chest x-ray dated 11/24/2016 HISTORY: Congestive heart failure TECHNIQUE: Single frontal view of the chest is obtained. FINDINGS: The patient is rotated. No pneumothorax or pleural effusion. Lung volumes are low. Cardiac mediastinal silhouette, pulmonary vascularity and kimberlee are stable. There is evidence of old granuloma tous disease. IMPRESSION: No acute process.
[2016-12-15 15:01] LABS: Basophils # (A) 0.1 k/uL (0-0.2); Basophils % (A) 1 %; CH 33.1; CHCM 34.6; Eosinophils # (A) 0.4 k/uL (0-0.7); Eosinophils % (A) 4 %; HCT 43.7 % (39.0-53.0); HDW 2.42; Luc # (Auto) 0.17; Luc % (Auto) 2; Lymphocytes # (A) 0.9 k/uL (1.0-4.8); Lymphocytes % (A) 9 %; MCH 33.1 pg (25.0-35.0); MCHC 34.4 g/dL (31.0-37.0); MCV 96.1 fL (80.0-100.0); Monocytes # (A) 0.8 k/uL (0-1.0); Monocytes % (A) 8 %; Neutrophils # (A) 7.5 k/uL (1.3-7.7); Neutrophils % (A) 77 %; RBC 4.55 m/uL (4.30-5.90); RDW 13.2 % (11.5-15.5); WBC 9.7 k/uL (3.8-10.6); WBC (Perox) 9.96
[2016-12-15 15:15] LABS: Calcium 8.7 mg/dL (8.4-10.2); Magnesium 2.1 mg/dL (1.6-2.3); Phosphorous 4.5 mg/dL (2.5-4.5); Potassium 4.6 mmol/L (3.5-5.1); Total Bilirubin 0.7 mg/dL (0.2-1.3); Total Protein 5.7 g/dL (6.3-8.2)
[2016-12-15] MEDS: SODIUM CHLORIDE 0.9% 1,000 ML IV SCH (17:07)
--- NOTE | 2016-12-15 17:32 | XR ---
Left knee HISTORY: Trauma and pain 4 views of the left knee No comparisons Joint space loss is greatest in the medial compartment, there is marginal spurring, subchondral geode formation and sclerosis. Alignment and bone mineralization are maintained. No evident joint effusion . Spurring also present at the patellofemoral joint. IMPRESSION: Osteoarthritis, no acute fracture or dislocation evident.
[2016-12-15] MEDS: PANTOPRAZOLE 40 MG TABLET PO SCH (18:15)
[2016-12-15 20:03] LABS: Appearance,Urine Clear (Clear); Bilirubin,Urine Negative (Negative); Glucose,Urine (UA) Negative (Negative); Ketones,Urine Negative (Negative); Leukocyte Esterase,Urine Negative (Negative); Nitrite,Urine Negative (Negative); Protein,Urine Negative (Negative); Specific Gravity,Urine 1.008 (1.001-1.035); UA Billing (MACRO vs. MICRO) CHEM; Urobilinogen,Urine <2.0 mg/dL (<2.0)
[2016-12-15] MEDS: amLODIPine 5 MG TAB PO SCH (22:59)
[2016-12-15] MEDS: LOSARTAN 50 MG TAB PO SCH (22:59)
[2016-12-15] MEDS: DOCUSATE 100 MG CAP PO SCH (22:59)
[2016-12-15] MEDS: ISOSORBIDE MONONITRATE ER 60 MG TAB.ER.24H PO SCH (22:59)
[2016-12-15] MEDS: ATORVASTATIN 10 MG TAB PO SCH (22:59)
[2016-12-16] MEDS: SODIUM CHLORIDE 0.9% 1,000 ML IV SCH ×2 (05:06→21:12)
[2016-12-16 06:57] LABS: Basophils % (A) 1 %; CH 33.4; CHCM 34.7; Eosinophils # (A) 0.3 k/uL (0-0.7); Eosinophils % (A) 4 %; HCT 45.8 % (39.0-53.0); HDW 2.34; HGB 15.3 gm/dL (13.0-17.5); Luc # (Auto) 0.27; Luc % (Auto) 3; Lymphocytes % (A) 11 %; MCH 32.5 pg (25.0-35.0); MCHC 33.5 g/dL (31.0-37.0); MCV 96.9 fL (80.0-100.0); Mean Platelet Volume 7.2; Monocytes % (A) 10 %; Neutrophils # (A) 6.8 k/uL (1.3-7.7); Neutrophils % (A) 72 %; RBC 4.73 m/uL (4.30-5.90); RDW 14.1 % (11.5-15.5); WBC 9.4 k/uL (3.8-10.6); WBC (Perox) 9.21
[2016-12-16] MEDS: MAGNESIUM HYDROXIDE 2,400 MG/10 ML CUP PO SCH (07:14)
[2016-12-16 07:15] LABS: Calcium 8.9 mg/dL (8.4-10.2)
[2016-12-16] MEDS: TAMSULOSIN 0.4 MG CAP.ER.24H PO SCH (07:15)
[2016-12-16] MEDS: PARoxetine 20 MG TAB PO SCH (07:15)
[2016-12-16] MEDS: LOSARTAN 50 MG TAB PO SCH ×2 (07:15→21:29)
[2016-12-16] MEDS: CLOPIDOGREL 75 MG TAB PO SCH (07:15)
[2016-12-16] MEDS: DOCUSATE 100 MG CAP PO SCH ×2 (07:15→21:29)
[2016-12-16] MEDS: ISOSORBIDE MONONITRATE ER 60 MG TAB.ER.24H PO SCH (07:15)
[2016-12-16] MEDS: PANTOPRAZOLE 40 MG TABLET PO SCH (07:15)
[2016-12-16] MEDS: amLODIPine 5 MG TAB PO SCH ×2 (07:15→21:21)
[2016-12-16] MEDS: ASPIRIN 81 MG CHEW PO SCH (07:16)
[2016-12-16] MEDS: MAGNESIUM OXIDE 400 MG TAB PO SCH (07:16)
--- NOTE | 2016-12-16 09:12 | HP ---
HISTORY AND PHYSICAL CHIEF COMPLAINT: Fall and renal failure. HISTORY: This 86-year-old gentleman with a past history of multiple medical problems such as hypertension, CAD and CHF was admitted to the psych floor with severe depression after his son's passing. The patient apparently had poor p.o. intake. The patient has complained of constipation also. The patient apparently was straining of stool on the toilet. The patient fell down and also had an episode of syncope. Creatinine is only 1.2. Patient is transferred to the Medical Floor for further evaluation and treatment. There is no history of any fever, rigors or chills. No history of headache, loss of consciousness or seizures. PAST MEDICAL HISTORY: History of CHF, CAD, myocardial infarction and DJD. MEDICATIONS: Prior to admission include, home medications are: 1. Norvasc 5 mg p.o. b.i.d. 2. Dyazide 37.6/25 mg daily. 3. Flomax 0.4. 4. Zocor 20 mg q.h.s. 5. Paxil 20 mg daily. 6. Milk of Magnesia. 2.4 g. 7. Alginate 500 mg p.o. 9. Cozaar 50 mg p.o. b.i.d. 10.Imdur 60 mg p.o. b.i.d. 11.Ecotrin 81 mg. 12.Tylenol 650 q.4h p.r.n. ALLERGIES: MORPHINE, BEE VENOM. FAMILY HISTORY: History of coronary artery disease. SOCIAL HISTORY: History of previous smoking. No history of alcohol intake. REVIEW OF SYSTEMS: ENT: Diminished hearing and vision. CARDIOVASCULAR: As mentioned earlier. GI: As mentioned earlier. : As mentioned earlier. NERVOUS SYSTEM: As mentioned earlier. MUSCULOSKELETAL: As mentioned earlier. HEMATOLOGY: No anemia. ENDOCRINE: No history of diabetes. CONSTITUTIONAL: As mentioned earlier. PSYCHIATRIC: As mentioned earlier. PHYSICAL EXAMINATION: Alert and oriented x3. Pulse is 71, blood pressure 46247, respiration 18, temperature 98.4, pulse ox 98% room air. HEENT Conjunctivae normal. Oral mucosa moist. Examination of the tongue is dry. NECK No jugular venous distention, no carotid bruit, no thyromegaly. RESPIRATORY Breath sounds diminished especially at the bases. No rhonchi, no crackles. HEART S1 and S2, muffled. ABDOMEN Soft, no tenderness. EXTREMITIES No edema, no swelling. NERVOUS Higher functions as mentioned. Moves all four limbs. No focal deficits. LYMPHATICS: No lymph node in neck or axilla. SKIN: No rashes. LABS: At this time shows WBC 9.2, hemoglobin 15, sodium 134, creatinine 1.6. ASSESSMENT: 1. Acute renal failure, possibly prerenal, dehydration with diminished p.o. intake. 2. Fall and possible syncope, vasovagal. 3. Rule out orthostatic hypotension. 4. History of coronary artery disease with stent. 5. History of congestive heart failure. 6. History of hypertension. 8. History of degenerative joint disease. 9. Remote history of nicotine dependence. 10.FULL CODE. 11. RECOMMENDATIONS AND DISCUSSION: In this 86-year-old gentleman who presented with multiple complex medical issues , we will monitor the patient closely, continue current medication, continue symptomatic treatment. Will initiate the previous medication, IV fluids, monitor closely hold the diuretics for now. Otherwise, avoid nephrotoxic agents. Guarded prognosis because of multiple complex medical issues. Further recommendations to follow. MMODL / IJN: [id number] / MTDDanny
--- NOTE | 2016-12-16 21:16 | PN ---
PROGRESS NOTE DATE OF SERVICE: 12/16/2016 This is a progress note. INTERVAL HISTORY: This 86 -year-old gentleman who was admitted to psych floor was admitted with following renal failure to the medical floor. The patient is on IV fluids. Patient feeling dizzy today. The patient also being orthostatic also. No chest pain. No palpitations. No fever. PAST MEDICAL HISTORY: Reviewed. REVIEW OF SYSTEMS: Cardio system: No angina or palpitations. Respiratory: As mentioned earlier. GI: As mentioned earlier. : No dysuria. Central nervous system: No numbness, weakness. CURRENT MEDICATIONS ARE: Reviewed and include: 1. Tylenol 650 q.6h p.r.n. 2. Xanax 0.25 mg q6h p.r.n. 3. Norvasc 5 mg p.o. b.i.d. 4. Aspirin 81 mg daily. 5. Lipitor 10 mg q.h.s. 6. Plavix 75 mg p.o. daily. 7. Colace 100 mg p.o. b.i.d. 8. Imdur 60 mg p.o. b.i.d. 9. Losartan 50 mg p.o. b.i.d. 10.Milk of magnesia daily. 11.Magnesium oxide 400 mg p.o. daily. 12.Melatonin 3 mg q.h.s. 13.Narcan. 14.Protonix 40 mg. 15.Paxil 20 mg daily. 16.Flomax 0.4 daily. PHYSICAL EXAMINATION: Patient is alert, oriented times three. Pulse 70, blood pressure 112/68. Respiration 18, temperature is normal. Pulse ox normal. HEENT: Conjunctivae normal. Oral mucosa moist. Neck is no jugular venous distention. No carotid bruit. No lymph node enlargement. Cardiovascular is S1, S2. No S3, no S4. Respiratory: Breath sounds diminished at the bases. No rhonchi. No crackles. Abdomen is soft, nontender. No mass palpable. Legs no edema. No swelling. Nervous system: Higher functions as mentioned earlier. Moves all four limbs. Lymphatics: No lymph nodes palpable in the neck, axillae or groin. Skin no ulcer, rash, bleeding. LABS: WBC 9.2, hemoglobin 15.2, sodium 138, potassium 5, creatinine 1.60. ASSESSMENT: 1. Acute renal failure possibly prerenal dehydration with diminished p.o. intake. 2. Fall and possible syncope vasovagal. 3. Rule out orthostatic hypotension. 4. History of coronary artery disease, stent. 5. History of congestive heart failure. 6. History of hypertension. 7. History of degenerative joint disease. 8. Remote history of nicotine dependence. 9. FULL CODE. DISCUSSION AND RECOMMENDATIONS: Continue current medications. Continue symptomatic treatment. Otherwise at this time I recommend cut down the dose of Imdur to 30 b.i.d. otherwise mL/hour. Patient also receiving Norvasc 5 twice daily. I would cut down the dose to 2.5 twice daily. Otherwise, continue the rest of medications and the creatinine is almost the same like yesterday. I would repeat the creatinine tomorrow and creatinine kinase is only found to be 80 and continue to monitor. Guarded prognosis. Further recommendations to follow. There is no evidence of rhabdomyolysis. MMODL / IJN: [id number] / MTDD
[2016-12-16] MEDS: amLODIPine 2.5 MG TAB PO SCH (21:28)
[2016-12-16] MEDS: ISOSORBIDE MONONITRATE ER 30 MG TAB.ER.24H PO SCH (21:28)
[2016-12-16] MEDS: ATORVASTATIN 10 MG TAB PO SCH (21:28)
[2016-12-16 21:31] VITALS: RESP 16
[2016-12-17 07:36] LABS: Anion Gap 5 mmol/L; Blood Urea Nitrogen 30 mg/dL (9-20); Calcium 8.8 mg/dL (8.4-10.2); Carbon Dioxide 28 mmol/L (22-30); Chloride 102 mmol/L (98-107); Glucose 86 mg/dL (74-99); Non-African American GFR(MDRD) 59 (>60 ml/min/1.73 sqM); Potassium 4.3 mmol/L (3.5-5.1); Sodium 135 mmol/L (137-145)
[2016-12-17 08:29] LABS: Basophils # (A) 0.1 k/uL (0-0.2); Basophils % (A) 1 %; CH 32.6; CHCM 33.9; Eosinophils # (A) 0.4 k/uL (0-0.7); Eosinophils % (A) 7 %; HCT 43.7 % (39.0-53.0); HDW 2.37; Luc # (Auto) 0.16; Luc % (Auto) 2; Lymphocytes # (A) 1.5 k/uL (1.0-4.8); Lymphocytes % (A) 22 %; MCH 33.3 pg (25.0-35.0); MCHC 34.4 g/dL (31.0-37.0); MCV 96.6 fL (80.0-100.0); Mean Platelet Volume 7.8; Monocytes # (A) 0.6 k/uL (0-1.0); Monocytes % (A) 10 %; Neutrophils # (A) 3.9 k/uL (1.3-7.7); Neutrophils % (A) 59 %; RBC 4.52 m/uL (4.30-5.90); RDW 13.1 % (11.5-15.5); WBC 6.6 k/uL (3.8-10.6); WBC (Perox) 6.58
[2016-12-17] MEDS: SODIUM CHLORIDE 0.9% 1,000 ML IV SCH (08:48)
[2016-12-17] MEDS: MAGNESIUM HYDROXIDE 2,400 MG/10 ML CUP PO SCH (08:51)
[2016-12-17] MEDS: DOCUSATE 100 MG CAP PO SCH (08:55)
[2016-12-17] MEDS: CLOPIDOGREL 75 MG TAB PO SCH (08:58)
[2016-12-17] MEDS: LOSARTAN 50 MG TAB PO SCH (08:58)
[2016-12-17] MEDS: PARoxetine 20 MG TAB PO SCH (08:58)
[2016-12-17] MEDS: amLODIPine 2.5 MG TAB PO SCH (08:58)
[2016-12-17] MEDS: ASPIRIN 81 MG CHEW PO SCH (08:58)
[2016-12-17] MEDS: ISOSORBIDE MONONITRATE ER 30 MG TAB.ER.24H PO SCH (08:58)
[2016-12-17] MEDS: MAGNESIUM OXIDE 400 MG TAB PO SCH (08:58)
[2016-12-17] MEDS: PANTOPRAZOLE 40 MG TABLET PO SCH (08:58)
[2016-12-17] MEDS: TAMSULOSIN 0.4 MG CAP.ER.24H PO SCH (08:58)
[2016-12-17 14:10] VITALS: BP 165/77; PULSE 75; TEMP 97.8
--- NOTE | 2016-12-17 16:26 | P.DS ---
Providers Date of admission: 12/15/16 11:54 Attending physician: Jesus Olivares MD Consults: 12/16/16 09:24 Consult Physician Routine Consulting Provider: Pete Bonner Consult Reason/Comments: depression was on 3 and transfer to medical Do you want consulting provider notified?: Yes Primary care physician: Stated None Hospital Course: This 86-year-old gentleman who was admitted to psych floor for psychiatric evaluation for depression was transferred to medical floor with acute renal failure and as well as diminished by mouth intake causing prerenal renal failure and dehydration. Patient was monitored closely. Patient was given IV fluids. Creatinine improved from 1.6-1. Patient also had orthostatic hypotension other medical issues. Medications are adjusted. Patient improved significantly. Apparently the psych cleared the patient. The patient will be discharged in a stable condition with guarded prognosis with further plans to follow up with primary physician. On exam vitals stable. Cardio S1 and S2 normal. Respiratory respiratory system clear to auscultation. Abdomen soft nontender. Final diagnosis 1. Acute renal failure possibly prerenal dehydration with a diminish. Intake. 2. Fall and possible syncope vasovagal. 3. History of CAD stent. 4. History of CHF. 6. Hypertension. 7. DJD. 9. Remote history of nicotine dependence 10. Full code. Plan - Discharge Summary New Discharge Prescriptions: New amLODIPine [Norvasc] 2.5 mg PO BID #60 tab Docusate [Colace] 100 mg PO BID #60 cap Pantoprazole [Protonix] 40 mg PO AC-BRKFST #30 tab Isosorbide Mononitrate ER [Imdur] 60 mg PO BID #1 tab Continue Magnesium Gluconate [Magonate] 500 mg PO DAILY Losartan [Cozaar] 50 mg PO BID Clopidogrel [Plavix] 75 mg PO DAILY Tamsulosin [Flomax] 0.4 mg PO DAILY Simvastatin [Zocor] 20 mg PO HS PARoxetine [Paxil] 20 mg PO DAILY Aspirin EC [Ecotrin Low Dose] 81 mg PO DAILY #30 tablet.dr Acetaminophen Tab [Tylenol] 650 mg PO Q4HR PRN tab PRN Reason: Pain/Discomfort Mag Hydrox/Al Hydrox/Simeth [Maalox] 30 ml PO Q4HR PRN dose PRN Reason: Gi Upset Magnesium Hydroxide [Milk of Magnesia Concentrate] 2,400 mg PO DAILY dose Discontinued Isosorbide Mononitrate ER [Imdur] 60 mg PO BID amLODIPine [Norvasc] 5 mg PO BID tab Triamterene-Hctz 37.5-25Mg [Dyazide 37.5-25 Capsule] 1 cap PO DAILY Discharge Medication List Clopidogrel [Plavix] 75 mg PO DAILY 07/21/14 [History] Losartan [Cozaar] 50 mg PO BID 07/21/14 [History] Magnesium Gluconate [Magonate] 500 mg PO DAILY 07/21/14 [History] PARoxetine [Paxil] 20 mg PO DAILY 07/21/14 [History] Simvastatin [Zocor] 20 mg PO HS 07/21/14 [History] Tamsulosin [Flomax] 0.4 mg PO DAILY 07/21/14 [History] Aspirin EC [Ecotrin Low Dose] 81 mg PO DAILY #30 tablet. 11/27/16 [Rx] Acetaminophen Tab [Tylenol] 650 mg PO Q4HR PRN tab 12/14/16 [Rx] Mag Hydrox/Al Hydrox/Simeth [Maalox] 30 ml PO Q4HR PRN dose 12/14/16 [Rx] Magnesium Hydroxide [Milk of Magnesia Concentrate] 2,400 mg PO DAILY dose 12/14 [Rx] Docusate [Colace] 100 mg PO BID #60 cap 12/17/16 [Rx] Isosorbide Mononitrate ER [Imdur] 60 mg PO BID #1 tab 12/17/16 [Rx] Pantoprazole [Protonix] 40 mg PO AC-BRKFST #30 tab 12/17/16 [Rx] amLODIPine [Norvasc] 2.5 mg PO BID #60 tab 12/17/16 [Rx] Follow up Appointment(s)/Referral(s): Jacob Cline DO [Doctor of Osteopathic Medicine] - 12/25/16 9:30 am (Follow up with [place]) Ambulatory/Diagnostic Orders: Basic Metabolic Panel [LAB.AMB] Time Frame: 3 Days, Location: Determined By Patient Patient Instructions/Handouts: Laxative, Stool Softeners (By mouth), Amlodipine (By mouth), Isosorbide Mononitrate (By mouth), Pantoprazole (By mouth ), Acute Kidney Injury (DC) Activity/Diet/Wound Care/Special Instructions: [place] Grief Share and Coping with Grief and Loss, Mikael..information given to patient. Discharge Disposition: TRANSFER TO PSYCH HOSP/UNIT
== END 2016-12-17 17:00 | DRG 684 ==
LOC: 5MS5E 11:54
PROVIDERS: ADMIT Internal Medicine; ATTEND Internal Medicine
DX: N17.9 Acute kidney failure, unspecified (principal); I11.0 Hypertensive heart disease with heart failure; E86.0 Dehydration; I50.9 Heart failure, unspecified; I25.10 Atherosclerotic heart disease of native coronary artery without angina pectoris; M19.90 Unspecified osteoarthritis, unspecified site; K59.00 Constipation, unspecified; I95.1 Orthostatic hypotension; F32.9 Major depressive disorder, single episode, unspecified; W19.XXXA Unspecified fall, initial encounter; Z79.02 Long term (current) use of antithrombotics/antiplatelets; Z95.5 Presence of coronary angioplasty implant and graft; Z87.891 Personal history of nicotine dependence; Z82.49 Family history of ischemic heart disease and other diseases of the circulatory system; Z88.6 Allergy status to analgesic agent; Z91.030 Bee allergy status; Z79.899 Other long term (current) drug therapy; I25.2 Old myocardial infarction
CPT/HCPCS: 71010; 80048; 80053; 81003; 82550; 83735; 84100; 85025; 93005

== ENCOUNTER 2021-01-11 15:50 | Observation (INO) | payer OTHER, MEDICARE ==
[2021-01-11] MEDS ORDERED: hydrALAZINE HCL 20 MG/ML 1 ML VIAL IVP STA ×2 (16:16→18:41)
[2021-01-11] MEDS ORDERED: LABETALOL 5 MG/ML VIAL MDV IVP STA ×2 (16:16→22:50)
[2021-01-11] MEDS ORDERED: MORPHINE SULFATE 4 MG/ML SYRINGE IV STA (16:23)
--- NOTE | 2021-01-11 16:47 | ED ---
General Adult HPI - General Chief complaint: Recheck/Abnormal Lab/Rx Stated complaint: Headache,High BP Time Seen by Provider: 01/11/21 15:54 Source: patient Mode of arrival: EMS Limitations: no limitations - History of Present Illness Initial comments: Dictation was produced using [employer] dictation software. please excuse any grammatical, word or spelling errors. Chief Complaint: 89-year-old male with past medical history of coronary artery disease, Mikaela and hypertension presents to the emergency department for headache and elevated blood pressure. History of Present Illness: Is an 82-year-old male who is brought in by EMS from home. Patient has been having elevated blood pressures and headache for the last 3 days. Patient states that he has a headache that severe. He locates the pain to the top of his head. It's not throbbing. States is severe. He states that it's 10.5 out of 10 pain. Denies any chest pain. Patient has some numbness to the medial surface of his left upper extremity. States it is worse when he bends his elbow. It affects his fourth and fifth digit. Patient has a history of hypertension. EMR shows that patient takes multiple medications for his blood pressure. The ROS documented in this emergency department record has been reviewed and confirmed by me. Those systems with pertinent positive or negative responses have been documented in the HPI. All other systems are other negative and/or noncontributory. PHYSICAL EXAM: General Impression: Alert and oriented x3, not in acute distress HEENT: Normocephalic atraumatic, extra-ocular movements intact, pupils equal and reactive to light bilaterally, mucous membranes moist. Cardiovascular: Heart regular rate and rhythm Chest: Able to complete full sentences, no retractions, no tachypnea Abdomen: abdomen soft, non-tender, non-distended, no organomegaly Musculoskeletal: Pulses present and equal in all extremities, no peripheral edema Motor: no focal deficits noted Neurological: CN II-XII grossly intact, no focal motor or sensory deficits noted Skin: Intact with no visualized rashes Psych: Normal affect and mood ED course: 89-year-old male presents with hypertension and severe headache. vital signs upon arrival shows heart rate of 51, blood pressure 236/103, rest of vital signs within acceptable limits. His blood pressure was significantly high. Patient given hydralazine push. Patient given morphine for his headache. Computed tomography scan of the brain shows no acute processes. Patient reports significant improvement. Laboratory evaluation shows normal CBC, coag panel and metabolic panel. Troponin slightly elevated at 0.018. Patient has no chest symptoms. Repeat blood pressure is 197/81. Patient will be admitted for symptom medical hypertension. Case discussed with Dr. Estrada of [facility]. Cardiology be consulted. EKG interpretation: Ventricular rate 51, 236, QRS 142, QRS 14. No VA prolongation, no QTC prolongation, no ST or T-wave changes noted. EKG compared to 12/15/2016 showing no changes. Overall, this EKG is unremarkable - Related Data Home Medications Medication Instructions Recorded Confirmed Clopidogrel [Plavix] 75 mg PO DAILY 07/21/14 12/15/16 Losartan [Cozaar] 50 mg PO BID 07/21/14 12/15/16 Magnesium Gluconate [Magonate] 500 mg PO DAILY 07/21/14 12/15/16 PARoxetine [Paxil] 20 mg PO DAILY 07/21/14 12/15/16 Simvastatin [Zocor] 20 mg PO HS 07/21/14 12/15/16 Tamsulosin [Flomax] 0.4 mg PO DAILY 07/21/14 12/15/16 Previous Rx's Medication Instructions Recorded Aspirin EC [Ecotrin Low Dose] 81 mg PO DAILY #30 tablet. 11/27/16 Acetaminophen Tab [Tylenol] 650 mg PO Q4HR PRN tab 12/14/16 Mag Hydrox/Al Hydrox/Simeth 30 ml PO Q4HR PRN dose 12/14/16 [Maalox] Magnesium Hydroxide [Milk of 2,400 mg PO DAILY dose 12/14/16 Magnesia Concentrate] Docusate [Colace] 100 mg PO BID #60 cap 12/17/16 Isosorbide Mononitrate ER [Imdur] 60 mg PO BID #1 tab 12/17/16 Pantoprazole [Protonix] 40 mg PO AC-BRKFST #30 tab 12/17/16 amLODIPine [Norvasc] 2.5 mg PO BID #60 tab 12/17/16 Allergies Allergy/AdvReac Type Severity Reaction Status Date / Time dutasteride [From Avodart] AdvReac Rapid Verified 01/11/21 16:10 Heart Rate morphine AdvReac PASS OUT Verified 01/11/21 16:10 venom-honey bee AdvReac PASS OUT Verified 01/11/21 16:10 [bee venom (honey bee)] Review of Systems ROS Statement: Those systems with pertinent positive or pertinent negative responses have been documented in the HPI. ROS Other: All systems not noted in ROS Statement are negative. Past Medical History Past Medical History: Coronary Artery Disease (CAD), Heart Failure, CVA/TIA, Hypertension, Myocardial Infarction (MD), Osteoarthritis (OA) Additional Past Medical History / Comment(s): patient states he had a stroke a couple years ago but did not go to the hospital for it. Said his mouth and hands went numb and was unable to see. Symptoms lasted a couple hours and then improved. Last Myocardial Infarction Date:: 2012 History of Any Multi-Drug Resistant Organisms: None Reported Past Surgical History: Ear Surgery, Heart Catheterization With Stent, Joint Replacement Additional Past Surgical History / Comment(s): Rt knee, cataract removal Past Anesthesia/Blood Transfusion Reactions: No Reported Reaction Date of Last Stent Placement:: 2012 Past Psychological History: No Psychological Hx Reported Smoking Status: Former smoker Past Alcohol Use History: None Reported Past Drug Use History: None Reported - Past Family History Son(s) Family Medical History: Coronary Artery Disease (CAD) Additional Family Medical History / Comment(s): son recently from heart disease, was born with heart defect. General Exam Limitations: no limitations Course Vital Signs 01/11/21 01/11/21 01/11/21 15:58 17:00 17:35 Temperature 98.3 F Pulse Rate 51 L 50 L 54 L Respiratory 20 20 20 Rate Blood Pressure 236/103 218/95 197/81 O2 Sat by Pulse 99 100 98 Oximetry Medical Decision Making - Lab Data Result diagrams: 01/11/21 16:41 01/11/21 16:41 Lab Results 01/11/21 01/11/21 01/11/21 Range/Units 16:41 16:41 16:41 WBC 6.3 (3.8-10.6) k/uL RBC 4.03 L (4.30-5.90) m/uL Hgb 13.3 (13.0-17.5) gm/dL Hct 40.1 (39.0-53.0) % MCV 99.4 (80.0-100.0) fL MCH 33.0 (25.0-35.0) pg MCHC 33.3 (31.0-37.0) g/dL RDW 13.3 (11.5-15.5) % Plt Count 252 (150-450) k/uL MPV 8.1 Neutrophils % 60 % Lymphocytes % 21 % Monocytes % 10 % Eosinophils % 6 % Basophils % 1 % Neutrophils # 3.8 (1.3-7.7) k/uL Lymphocytes # 1.3 (1.0-4.8) k/uL Monocytes # 0.6 (0-1.0) k/uL Eosinophils # 0.4 (0-0.7) k/uL Basophils # 0.1 (0-0.2) k/uL PT 10.3 (9.0-12.0) sec INR 1.0 (<1.2) APTT 19.6 L (22.0-30.0) sec Sodium 132 L (137-145) mmol/L Potassium 4.6 (3.5-5.1) mmol/L Chloride 103 (98-107) mmol/L Carbon Dioxide 24 (22-30) mmol/L Anion Gap 5 mmol/L BUN 13 (9-20) mg/dL Creatinine 0.81 (0.66-1.25) mg/dL Est GFR (CKD-EPI)AfAm >90 (>60 ml/min/1.73 sqM) Est GFR (CKD-EPI)NonAf 79 (>60 ml/min/1.73 sqM) Glucose 111 H (74-99) mg/dL Plasma Lactic Acid Daniel (0.7-2.0) mmol/L Calcium 8.4 (8.4-10.2) mg/dL Magnesium 2.1 (1.6-2.3) mg/dL Total Bilirubin 0.9 (0.2-1.3) mg/dL AST 22 (17-59) U/L ALT 13 (4-49) U/L Alkaline Phosphatase 70 (38-126) U/L Troponin I (0.000-0.034) ng/mL Total Protein 5.4 L (6.3-8.2) g/dL Albumin 3.0 L (3.5-5.0) g/dL 01/11/21 01/11/21 Range/Units 16:41 16:41 WBC (3.8-10.6) k/uL RBC (4.30-5.90) m/uL Hgb (13.0-17.5) gm/dL Hct (39.0-53.0) % MCV (80.0-100.0) fL MCH (25.0-35.0) pg MCHC (31.0-37.0) g/dL RDW (11.5-15.5) % Plt Count (150-450) k/uL MPV Neutrophils % % Lymphocytes % % Monocytes % % Eosinophils % % Basophils % % Neutrophils # (1.3-7.7) k/uL Lymphocytes # (1.0-4.8) k/uL Monocytes # (0-1.0) k/uL Eosinophils # (0-0.7) k/uL Basophils # (0-0.2) k/uL PT (9.0-12.0) sec INR (<1.2) APTT (22.0-30.0) sec Sodium (137-145) mmol/L Potassium (3.5-5.1) mmol/L Chloride (98-107) mmol/L Carbon Dioxide (22-30) mmol/L Anion Gap mmol/L BUN (9-20) mg/dL Creatinine (0.66-1.25) mg/dL Est GFR (CKD-EPI)AfAm (>60 ml/min/1.73 sqM) Est GFR (CKD-EPI)NonAf (>60 ml/min/1.73 sqM) Glucose (74-99) mg/dL Plasma Lactic Acid Daniel 1.3 (0.7-2.0) mmol/L Calcium (8.4-10.2) mg/dL Magnesium (1.6-2.3) mg/dL Total Bilirubin (0.2-1.3) mg/dL AST (17-59) U/L ALT (4-49) U/L Alkaline Phosphatase (38-126) U/L Troponin I 0.018 (0.000-0.034) ng/mL Total Protein (6.3-8.2) g/dL Albumin (3.5-5.0) g/dL Disposition Clinical Impression: Hypertension with goal of symptom management only Disposition: ADMITTED IP TO THIS [facility] Condition: Fair Referrals: Al An MD [Primary Care Provider] - 1-2 days
[2021-01-11 16:57] LABS: Basophils # (A) 0.1 k/uL (0-0.2); Basophils % (A) 1 %; Eosinophils # (A) 0.4 k/uL (0-0.7); Eosinophils % (A) 6 %; HCT 40.1 % (39.0-53.0); HGB 13.3 gm/dL (13.0-17.5); Lymphocytes # (A) 1.3 k/uL (1.0-4.8); Lymphocytes % (A) 21 %; MCHC 33.3 g/dL (31.0-37.0); MCV 99.4 fL (80.0-100.0); Mean Platelet Volume 8.1; Monocytes # (A) 0.6 k/uL (0-1.0); Monocytes % (A) 10 %; Neutrophils # (A) 3.8 k/uL (1.3-7.7); Neutrophils % (A) 60 %; Platelet Count 252 k/uL (150-450); RBC 4.03 m/uL (4.30-5.90); RDW 13.3 % (11.5-15.5); WBC 6.3 k/uL (3.8-10.6)
[2021-01-11 17:10] LABS: ALT 13 U/L (4-49); AST 22 U/L (17-59); African American GFR (CKD) >90 (>60 ml/min/1.73 sqM); Alkaline Phosphatase 70 U/L (38-126); Anion Gap 5 mmol/L; Blood Urea Nitrogen 13 mg/dL (9-20); Calcium 8.4 mg/dL (8.4-10.2); Carbon Dioxide 24 mmol/L (22-30); Chloride 103 mmol/L (98-107); Glucose 111 mg/dL (74-99); Magnesium 2.1 mg/dL (1.6-2.3); Non-African American GFR(CKD) 79 (>60 ml/min/1.73 sqM); Potassium 4.6 mmol/L (3.5-5.1); Sodium 132 mmol/L (137-145); Total Bilirubin 0.9 mg/dL (0.2-1.3); Total Protein 5.4 g/dL (6.3-8.2)
--- NOTE | 2021-01-11 17:11 | CT ---
EXAMINATION TYPE: CT brain wo con DATE OF EXAM: 01/11/2021 COMPARISON: 12/15/2016 HISTORY: Acute headache, Elevated BP. Pt hx TIA, IN. TECHNIQUE: CT scan of the head performed without contrast CT DLP: 1202.4 mGycm Automated exposure control for dose reduction was used. FINDINGS: Mild brain volume atrophy changes. Low-attenuation in the deep white matter periventricular region hernandez ggesting chronic microvascular ischemic changes. Tiny bilateral basal ganglia and biventricular white matter low attenuating lesion suggest remote lacunar infarcts. No acute intracranial hemorrhage, midline shift or mass effect. Baker-white matter differentiation is preserved. Prominent CSF spaces in keeping with volume loss. No definite dilatation of the ventricula r system. No acute osseous, orbital or soft tissue abnormalities seen. Paranasal sinuses and mastoid air cells are radiated. There are sclerotic calcifications are seen in the intracranial internal carotid arteries. IMPRESSION: NO EVIDENCE FOR ACUTE INTRACRANIAL ABNORMALITY. CHRONIC CHANGES, WITHOUT SIGNIFICANT CHANGE DESCRI BED IN BODY OF REPORT
[2021-01-11 17:13] LABS: Prothrombin Time 10.3 sec (9.0-12.0)
[2021-01-11 17:20] LABS: Partial Thromboplastin Time 19.6 sec (22.0-30.0)
--- NOTE | 2021-01-11 17:28 | XR ---
EXAMINATION TYPE: XR chest 1V portable DATE OF EXAM: 01/11/2021 COMPARISON: 12/15/2016 HISTORY: 89 years Male. STUDY INDICATION GIVEN: hypertension . TECHNIQUE: Semiupright portable chest radiograph IMPRESSION: Mild increase in bilateral central and interstitial opacities suggest pulmonary vascular congestion a nd interstitial edema, atypical viral infection or reactive airway disease. No pneumothorax or pleural effusion or cardiomegaly seen. Bibasilar reticular nodular opacities could represent fibrosis and/or atelectasis. No acute osseous abnormality. Degenerative changes seen in the shoulder joints and spine.
[2021-01-11] MEDS ORDERED: NALOXONE 0.4 MG/ML 1 ML VIAL IV PRN (17:58)
[2021-01-11] MEDS ORDERED: niCARdipine 20 MG in SODIUM CHLORIDE 0.9% 192 ML IV SCH (18:00)
[2021-01-11] MEDS: SODIUM CHLORIDE 0.9% 1,000 ML IV SCH (18:34)
[2021-01-11] MEDS ORDERED: hydrALAZINE HCL 25 MG TAB PO STA (22:34)
[2021-01-11] MEDS ORDERED: ISOSORBIDE MONONITRATE ER 60 MG TAB.ER.24H PO SCH (22:45)
--- NOTE | 2021-01-11 22:51 | P.HPIM ---
History of Present Illness H&P Date: 01/11/21 Patient is an 89-year-old male with a PMH of coronary artery disease, hypertension, and hyperlipidemia who presents to the emergency room due to high blood pressures. Patient reports that he has been struggling to control his blood pressure over the past few weeks, and that it is consistently been high with readings in the home greater than 180/90. He notes that he last saw his primary care provider 10 days ago and that they have been slowly modifying his medications but that her blood pressure continues to be significantly elevated. He reports that he has been experiencing diffuse headaches, blurred vision, and intermittent left arm numbness. He reports that all of these symptoms resolve spontaneously within a few hours, but that they correlate very closely with his elevated blood pressure. At time of the evaluation, he reported that his headache had improved from a 10 out of 10 to a 5 out of 10 diffuse throbbing- like headache, nonradiating. He reports that he had some blurred vision earlier today and he was unable to read his computer monitor and also experienced the left arm numbness which both have now resolved. He denied any additional complaints. He denied chest discomfort, shortness of breath, palpitations. Denied nausea, vomiting, abdominal pain, diarrhea, fever, chills, cough. Upon presentation to the emergency room, the patient's BP was recorded as 236/103 w ith pulse 51, SpO2 99% on room air, and temperature 98.3 degrees. Laboratory evaluation was remarkable for sodium of 132 and lactic acid 1.3 with troponin 0.018. EKG reveals sinus bradycardia with first-degree AV block at 51 bpm with a bifascicular block along with voltage criteria for LVH. A CT brain showed chronic ischemic changes. Chest x-ray was unremarkable. The patient is being admitted for hypertensive emergency. At time of evaluation, the patient's BP had improved to 169/71. Review of systems: Pertinent positives and negatives as discussed in HPI, a complete review of systems was performed and all other systems are negative. Physical examination: General: non toxic, no distress, appears at stated age, normal weight Derm: no unusual rashes/lesions no unusual ecchymoses, warm, dry Head: atraumatic, normocephalic, symmetric Eyes: EOMI, no lid lag, anicteric sclera, pupils equal round reactive to light ENT: Nose and ears atraumatic, no thrush, no pharyngeal erythema Neck: No thyromegaly, no cervical lymphadenopathy, trachea midline, supple Mouth: no lip lesion, mucus membranes moist Cardiovascular: S1S2 reg, no murmur, positive posterior tibial pulse bilateral, no edema, capillary refill less than 2 seconds Lungs: CTA bilateral, no rhonchi, no rales , no accessory muscle use Abdominal: soft, nontender to palpation, no guarding, no appreciable organomegaly, normal bowel sounds Ext: no gross muscle atrophy, muscle strength 5 out of 5 in all 4 extremities grossly, no contractures, Neuro: CN II-XI grossly intact, light touch intact all 4 extremities, finger to nose within normal limits, Psych: Alert, oriented, appropriate affect Assessment/plan Hypertensive emergency -Continue with home antihypertensives -C/w IVP Labetalol with goal BP 140-160/90-110 -Cardiac monitoring -Neuro checks -Fall precautions Chronic conditions: Coronary artery disease, hyperlipidemia -Continue with home meds DVT prophylaxis -heparin subq The patient is admitted with an anticipated less than 2 midnight stay for evaluation of htn emergency CODE STATUS: Full Code Discussed with: Patient Anticipated discharge date: in am Anticipated discharge place: Home A Past Medical History Past Medical History: Coronary Artery Disease (CAD), Heart Failure, CVA/TIA, Deep Vein Thrombosis (DVT), Hyperlipidemia, Hypertension, Myocardial Infarction (IA), Osteoarthritis (OA) Additional Past Medical History / Comment(s): states multiple small stroke, htn, 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 states IA and stent placement 2010. Last Myocardial Infarction Date:: 2010 History of Any Multi-Drug Resistant Organisms: None Reported Past Surgical History: Ear Surgery, Heart Catheterization With Stent, Joint Replacement, Orthopedic Surgery Additional Past Surgical History / Comment(s): Lt knee, Rt knee, cataract removal Past Anesthesia/Blood Transfusion Reactions: No Reported Reaction Date of Last Stent Placement:: 2010 Past Psychological History: No Psychological Hx Reported Additional Psychological History / Comment(s): Per pt. in the 1970's went to a psychiatrist/therapist for a short peroid of time. Smoking Status: Former smoker Past Alcohol Use History: None Reported Past Drug Use History: None Reported - Past Family History Son(s) Family Medical History: Coronary Artery Disease (CAD) Additional Family Medical History / Comment(s): son from heart disease, was born with heart defect. Medications and Allergies Home Medications Medication Instructions Recorded Confirmed Type PARoxetine [Paxil] 10 mg PO DAILY 07/21/14 01/11/21 History Tamsulosin [Flomax] 0.4 mg PO DAILY 07/21/14 01/11/21 History Aspirin EC [Ecotrin Low Dose] 81 mg PO DAILY #30 tablet. 11/27/16 01/11/21 Rx Isosorbide Mononitrate ER [Imdur] 60 mg PO BID #1 tab 12/17/16 01/11/21 Rx Atorvastatin Calcium [Lipitor] 20 mg PO HS 01/11/21 01/11/21 History Carvedilol [Coreg] 6.25 mg PO BID-W/MEALS 01/11/21 01/11/21 History Cholecalciferol [Vitamin D3 (10 10 mcg PO DAILY 01/11/21 01/11/21 History Mcg = 400 Iu)] Diclofenac Sodium Gel [Voltaren 1 applic TOPICAL DAILY PRN 01/11/21 01/11/21 History Gel] Ferrous Sulfate [Feosol] 325 mg PO DAILY 01/11/21 01/11/21 History Losartan Potassium 100 mg PO BID 01/11/21 01/11/21 History Magnesium Gluconate [Magonate] 500 mg PO DAILY 01/11/21 01/11/21 History Minocycline [Minocin] 50 mg PO DAILY 01/11/21 01/11/21 History Omeprazole 20 mg PO DAILY 01/11/21 01/11/21 History Spironolactone [Aldactone] 50 mg PO DAILY 01/11/21 01/11/21 History Allergies Allergy/AdvReac Type Severity Reaction Status Date / Time dutasteride [From Avodart] AdvReac Rapid Verified 01/11/21 19:37 Heart Rate morphine AdvReac PASS OUT Verified 01/11/21 19:37 venom-honey bee AdvReac PASS OUT Verified 01/11/21 19:37 [bee venom (honey bee)] Physical Exam Vitals: Vital Signs Temp Pulse Pulse Resp BP BP Pulse Ox 01/11/21 21:40 98.0 F 65 18 197/70 97 01/11/21 21:35 200/91 01/11/21 20:40 62 20 156/64 98 01/11/21 19:40 67 20 158/56 97 01/11/21 18:59 98.0 F 58 L 20 169/71 98 01/11/21 18:30 54 L 20 192/82 97 01/11/21 17:35 54 L 20 197/81 98 01/11/21 17:00 50 L 20 218/95 100 01/11/21 15:58 98.3 F 51 L 20 236/103 99 Intake and Output 01/11/21 01/11/21 01/11/21 06:59 14:59 22:59 Other: Weight 72.575 kg Results CBC & Chem 7: 01/11/21 16:41 01/11/21 16:41 Labs: Abnormal Lab Results - Last 24 Hours (Table) 01/11/21 01/11/21 01/11/21 Range/Units 16:41 16:41 16:41 RBC 4.03 L (4.30-5.90) m/uL APTT 19.6 L (22.0-30.0) sec Sodium 132 L (137-145) mmol/L Glucose 111 H (74-99) mg/dL Total Protein 5.4 L (6.3-8.2) g/dL Albumin 3.0 L (3.5-5.0) g/dL Thrombosis Risk Factor Assmnt - Choose All That Apply Each Risk Factor Represents 3 Points: Age 75 years or older Thrombosis Risk Factor Assessment Total Risk Factor Score: 3 Thrombosis Risk Factor Assessment Level: Moderate Risk
[2021-01-11] MEDS: carvediloL 6.25 MG TAB PO SCH (23:01)
[2021-01-11] MEDS: HEPARIN SODIUM,PORCINE/PF 5,000 UNIT/0.5 ML SYRINGE SQ SCH (23:01)
[2021-01-12] MEDS ORDERED: SPIRONOLACTONE 25 MG TAB PO SCH (09:00)
[2021-01-12] MEDS: HEPARIN SODIUM,PORCINE/PF 5,000 UNIT/0.5 ML SYRINGE SQ SCH ×2 (10:14→17:08)
[2021-01-12] MEDS: TAMSULOSIN 0.4 MG CAP.ER.24H PO SCH (10:15)
[2021-01-12] MEDS: PARoxetine 10 MG TAB PO SCH (10:15)
[2021-01-12] MEDS: ASPIRIN 81 MG PO SCH (10:15)
[2021-01-12] MEDS: VALSARTAN 160 MG TAB PO SCH ×2 (10:17→20:14)
[2021-01-12] MEDS: TRIAMTERENE-HCTZ 75-50MG 1 EACH TAB PO SCH (10:17)
[2021-01-12] MEDS: carvediloL 6.25 MG TAB PO SCH ×2 (10:18→17:08)
--- NOTE | 2021-01-12 11:26 | P.CRDCN ---
History of Present Illness History of present illness: HISTORY OF PRESENTING ILLNESS This is a pleasant 82-year-old male past medical history significant for coronary artery disease s/p PCI ostial D1, ostial LM and proximal circumflex, hypertension, dyslipidemia, history of DVT, former nicotine dependence. He follows in the office with Dr. Brito, has not follow up since 2018. We have been asked to see in consultation for hypertensive urgency. Patient seen and examined at bedside, no acute distress. He states he presents emergency departm ent with complaints of headaches, blurry vision and elevated blood pressure at home. He states for the past 10 days he is noticing worsening blood pressure control at home. He also states he has been having issues with his blood pressure since he was younger. He denies any chest pain, palpitations, lightheadedness, dizziness. He denies his symptoms of orthopnea or PND. DIAGNOSTICS EKG reveals sinus bradycardia, heart rate 51, first-degree AV block, RBBB, PCV, T wave inversion in leads I, III. Chest xray mildly increased in bilateral central discharge opacities source of pulmonary vascular congestion, interstial edema, vs reactive airway disease. CT brain reported as no acute intracranial abnormality. Laboratory reviewed, CBC unremarkable, sodium 132, potassium 4.6, BUN 13, serum creatinine 0.8, magnesium 2.1, troponin negative 1, COVID-19 pacer negative Current home cardiac medications include losartan 100 mg twice a day, atorvastatin 20 mg nightly, aspirin lactone 50 mg daily, aspirin 81 mg daily, Imdur 60 mg twice a day, carvedilol 6.25 mg by mouth daily Cardiac catheterization in 2013 revealed normal EF, 30% ostial circumflex, 20% mid RCA, patent ostial LM stem Echocardiogram 11/2016 revealed normal ejection fraction 5560 percent, trace to mild mitral regurgitation Lexiscan stress test 11/2016 no evidence of reversible ischemia REVIEW OF SYSTEMS At the time of my exam: CONSTITUTIONAL: Denies fever or chills. CARDIOVASCULAR: Denies chest pain, shortness of breath, orthopnea, PND or palpitations. RESPIRATORY: Denies cough. GASTROINTESTINAL: Denies abdominal pain, diarrhea, constipation, nausea or vomiting. MUSCULOSKELETAL: Denies myalgias. NEUROLOGIC: +headache +blurry vision. Denies numbness, tingling, or weakness. ENDOCRINE: Denies fatigue, weight change, polydipsia or polyurina. GENITOURINARY: Denies burning, hematuria or urgency with micturation. HEMATOLOGIC: Denies history of anemia or bleeding. PHYSICAL EXAMINATION Blood pressure 134/63, heart rate 50, afebrile, maintaining oxygen saturation is on room air CONSTITUTIONAL: No apparent distress. HEENT: Head is normocephalic. Pupils are equal, round. Sclerae anicteric. Mucous membranes of the mouth are moist. No JVD. No carotid bruit. CHEST EXAMINATION: Lungs are clear to auscultation. No chest wall tenderness is noted on palpation or with deep breathing. HEART EXAMINATION: Regular rate and rhythm. S1, S2 heard. Systolic murmur at apex No gallops or rub. ABDOMEN: Soft, nontender. Positive bowel sounds. EXTREMITIES: 2+ peripheral pulses, no lower extremity edema and no calf tenderness. NEUROLOGIC EXAMINATION: Patient is awake, alert and oriented x3. ASSESSMENT Uncontrolled hypertension Headache, blurry vision Coronary artery disease s/p PCI ostial D1, ostial LM and proximal circumflex Hypertension Dyslipidemia Former nicotine dependence PLAN -2D echocardiogram -Discontinue Imdur and Losartan -Start Nifedipine 30mg daily, Triamterene-Hctz 75mg-50mg daily, Valsartan 160mg BID -Continue carvedilol 6.25mg BID, aspirin, and statin -Check renal artery ultrasound -Check serum aldosterone, cortisol, metanephrines, and renin direct -Check 24 hour urine metanephrines -Further recommendations based on clinical course Nurse Practitioner note has been reviewed, I agree with a documented findings and plan of care. Patient was seen and examined. 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 states SD and stent placement 2010. Last Myocardial Infarction Date:: 2010 History of Any Multi-Drug Resistant Organisms: None Reported Past Surgical History: Ear Surgery, Heart Catheterization With Stent, Joint Replacement, Orthopedic Surgery Additional Past Surgical History / Comment(s): Lt knee, Rt knee, cataract removal Past Anesthesia/Blood Transfusion Reactions: No Reported Reaction Date of Last Stent Placement:: 2010 Past Psychological History: No Psychological Hx Reported Additional Psychological History / Comment(s): Per pt. in the 1970's went to a psychiatrist/therapist for a short peroid of time. Smoking Status: Former smoker Past Alcohol Use History: None Reported Past Drug Use History: None Reported - Past Family History Son(s) Family Medical History: Coronary Artery Disease (CAD) Additional Family Medical History / Comment(s): son from heart disease, was born with heart defect. Medications and Allergies Home Medications Medication Instructions Recorded Confirmed Type PARoxetine [Paxil] 10 mg PO DAILY 07/21/14 01/11/21 History Tamsulosin [Flomax] 0.4 mg PO DAILY 07/21/14 01/11/21 History Aspirin EC [Ecotrin Low Dose] 81 mg PO DAILY #30 tablet. 11/27/16 01/11/21 Rx Isosorbide Mononitrate ER [Imdur] 60 mg PO BID #1 tab 12/17/16 01/11/21 Rx Atorvastatin Calcium [Lipitor] 20 mg PO HS 01/11/21 01/11/21 History Carvedilol [Coreg] 6.25 mg PO BID-W/MEALS 01/11/21 01/11/21 History Cholecalciferol [Vitamin D3 (10 10 mcg PO DAILY 01/11/21 01/11/21 History Mcg = 400 Iu)] Diclofenac Sodium Gel [Voltaren 1 applic TOPICAL DAILY PRN 01/11/21 01/11/21 History Gel] Ferrous Sulfate [Feosol] 325 mg PO DAILY 01/11/21 01/11/21 History Losartan Potassium 100 mg PO BID 01/11/21 01/11/21 History Magnesium Gluconate [Magonate] 500 mg PO DAILY 01/11/21 01/11/21 History Minocycline [Minocin] 50 mg PO DAILY 01/11/21 01/11/21 History Omeprazole 20 mg PO DAILY 01/11/21 01/11/21 History Spironolactone [Aldactone] 50 mg PO DAILY 01/11/21 01/11/21 History Allergies Allergy/AdvReac Type Severity Reaction Status Date / Time dutasteride [From Avodart] AdvReac Rapid Verified 01/11/21 19:37 Heart Rate morphine AdvReac PASS OUT Verified 01/11/21 19:37 venom-honey bee AdvReac PASS OUT Verified 01/11/21 19:37 [bee venom (honey bee)] Physical Exam Vitals: Vital Signs Temp Pulse Pulse Resp BP BP Pulse Ox 01/12/21 04:00 98 F 50 L 16 134/63 97 01/12/21 02:00 50 L 18 01/12/21 00:34 140/62 01/12/21 00:30 162/70 01/11/21 23:09 172/70 01/11/21 22:30 192/74 01/11/21 21:40 98.0 F 65 18 197/70 97 01/11/21 21:35 200/91 01/11/21 20:40 62 20 156/64 98 01/11/21 19:40 67 20 158/56 97 01/11/21 18:59 98.0 F 58 L 20 169/71 98 01/11/21 18:30 54 L 20 192/82 97 01/11/21 17:35 54 L 20 197/81 98 01/11/21 17:00 50 L 20 218/95 100 01/11/21 15:58 98.3 F 51 L 20 236/103 99 Intake and Output 01/11/21 01/12/21 01/12/21 22:59 06:59 14:59 Output Total 20 Balance -20 Output: Urine 20 Other: Voiding Method Toilet Urinal Weight 72.575 kg 72.1 kg Results 01/11/21 16:41 01/11/21 16:41 Cardiac Enzymes 01/11/21 01/11/21 Range/Units 16:41 16:41 AST 22 (17-59) U/L Troponin I 0.018 (0.000-0.034) ng/mL Coagulation 01/11/21 Range/Units 16:41 PT 10.3 (9.0-12.0) sec APTT 19.6 L (22.0-30.0) sec CBC 01/11/21 Range/Units 16:41 WBC 6.3 (3.8-10.6) k/uL RBC 4.03 L (4.30-5.90) m/uL Hgb 13.3 (13.0-17.5) gm/dL Hct 40.1 (39.0-53.0) % Plt Count 252 (150-450) k/uL Comprehensive Metabolic Panel 01/11/21 Range/Units 16:41 Sodium 132 L (137-145) mmol/L Potassium 4.6 (3.5-5.1) mmol/L Chloride 103 (98-107) mmol/L Carbon Dioxide 24 (22-30) mmol/L BUN 13 (9-20) mg/dL Creatinine 0.81 (0.66-1.25) mg/dL Glucose 111 H (74-99) mg/dL Calcium 8.4 (8.4-10.2) mg/dL AST 22 (17-59) U/L ALT 13 (4-49) U/L Alkaline Phosphatase 70 (38-126) U/L Total Protein 5.4 L (6.3-8.2) g/dL Albumin 3.0 L (3.5-5.0) g/dL Current Medications Generic Name Dose Route Start Last Admin Trade Name Freq PRN Reason Stop Dose Admin Aspirin 81 mg 01/12/21 09:00 Aspirin 81 Mg PO DAILY [facility] Atorvastatin Calcium 20 mg 01/12/21 21:00 Atorvastatin 20 Mg Tab PO HS MARIA TERESA Carvedilol 6.25 mg 01/11/21 22:45 01/11/21 23:01 Carvedilol 6.25 Mg Tab PO 6.25 mg BID-W/MEALS MARIA TERESA Administration Heparin Sodium (Porcine) 5,000 unit 01/12/21 00:00 01/11/21 23:01 Heparin Sodium,Porcine/Pf 5,000 Unit/0.5 Ml Syringe SQ 5,000 unit Q8HR MARIA TERESA Administration Sodium Chloride 1,000 mls @ 20 mls/hr 01/11/21 18:00 01/11/21 18:34 Saline 0.9% IV 20 mls/hr .Q24H MARIA TERESA Administration Isosorbide Mononitrate 60 mg 01/11/21 22:45 01/11/21 23:01 Isosorbide Mononitrate Er 60 Mg Tab.Er.24h PO 60 mg BID MARIA TERESA Administration Naloxone HCl 0.2 mg 01/11/21 17:58 Naloxone 0.4 Mg/Ml 1 Ml Vial IV Q2M PRN Opioid Reversal Paroxetine HCl 10 mg 01/12/21 09:00 Paroxetine 10 Mg Tab PO DAILY [facility] Spironolactone 50 mg 01/12/21 09:00 Spironolactone 25 Mg Tab PO DAILY MARIA TERESA Tamsulosin HCl 0.4 mg 01/12/21 09:00 Tamsulosin 0.4 Mg Cap.Er.24h PO DAILY MARIA TERESA Intake and Output 01/11/21 01/12/21 01/12/21 22:59 06:59 14:59 Output Total 20 Balance -20 Output: Urine 20 Other: Voiding Method Toilet Urinal Weight 72.575 kg 72.1 kg 01/11/21 16:41 01/11/21 16:41
[2021-01-12] MEDS: NIFEdipine XL 30 MG TAB.ER.24 PO SCH (12:24)
[2021-01-12] MEDS: ACETAMINOPHEN TAB 325 MG TAB PO PRN (12:27)
--- NOTE | 2021-01-12 13:11 | P.PN ---
Subjective Progress Note Date: 01/12/21 Patient reports overall improvement. Still has headache, but has significantly improved. Denies chest pain, weakness. Continues to report some blurry vision but notes he forgot his glasses at home. Objective - Vital Signs Vital signs: Vital Signs Temp 98.4 F 01/12/21 12:00 Pulse 56 L 01/12/21 12:00 Resp 16 01/12/21 12:00 BP 197/91 01/12/21 12:00 Pulse Ox 98 01/12/21 12:00 Intake & Output 01/11/21 01/12/21 01/12/21 18:59 06:59 18:59 Intake Total 180 Output Total 20 Balance -20 180 Weight 72.575 kg 72.1 kg Intake: Oral 180 Output: Urine 20 Other: Voiding Method Toilet Urinal - Exam Gen: awake, alert HEENT: normocephalic, atraumatic, good hearing acuity, moist mucous membranes Resp: good air exchange, breathing comfortably with no accessory muscle use, clear to auscultation bilaterally CVS: good distal perfusion x 4, regular rate and rhythm GI: soft, NTTP, ND : no SPT, no CVAT, joyner catheter not present MSK: no pitting edema, no clubbing Neuro: non-focal, moving all extremities Psych: cooperative, euthymic mood - Labs CBC & Chem 7: 01/11/21 16:41 01/11/21 16:41 Labs: Abnormal Lab Results - Last 24 Hours (Table) 01/11/21 01/11/21 01/11/21 Range/Units 16:41 16:41 16:41 RBC 4.03 L (4.30-5.90) m/uL APTT 19.6 L (22.0-30.0) sec Sodium 132 L (137-145) mmol/L Glucose 111 H (74-99) mg/dL Total Protein 5.4 L (6.3-8.2) g/dL Albumin 3.0 L (3.5-5.0) g/dL Assessment and Plan Assessment: Hypertensive emergency -Cardiology consulted -Current regimen: Nifedipine, valsartan, Coreg, and hydrochlorothiazidetriamterene -Discontinued home Imdur, losartan -Cardiac monitoring -Neuro checks -Fall precautions -Renal ultrasound -Urine metanephrines, aldosterone, renin pending Chronic conditions: Coronary artery disease, hyperlipidemia -Continue with home meds DVT prophylaxis -heparin subq The patient is admitted with an anticipated less than 2 midnight stay for evaluation of htn emergency CODE STATUS: Full Code Discussed with: Patient Anticipated discharge place: Home
[2021-01-12] MEDS ORDERED: NIFEdipine XL 30 MG TAB.ER.24 PO STA (14:23)
[2021-01-12] MEDS ORDERED: [UNRECOGNIZED DRUG - REMARK] PO PRN (14:29)
[2021-01-12] MEDS: SODIUM CHLORIDE 0.9% 1,000 ML IV SCH (20:11)
[2021-01-12] MEDS: ATORVASTATIN 20 MG TAB PO SCH (20:14)
[2021-01-13] MEDS: ACETAMINOPHEN TAB 325 MG TAB PO PRN (00:38)
[2021-01-13] MEDS: HEPARIN SODIUM,PORCINE/PF 5,000 UNIT/0.5 ML SYRINGE SQ SCH ×4 (00:38→23:42)
[2021-01-13 08:28] LABS: Calcium 8.1 mg/dL (8.4-10.2); Potassium 4.3 mmol/L (3.5-5.1)
--- NOTE | 2021-01-13 08:52 | US ---
EXAMINATION TYPE: US renal artery duplex complet DATE OF EXAM: 01/13/2021 COMPARISON: NONE CLINICAL HISTORY: rule out renal artery stenosis. HTN for many years, 60+ years MEASUREMENTS: RENAL SIZE: Rt Kidney: 11.2 x 4.7 x 4.8cm Lt Kidney: 11.2 x 5.1 x 4.7cm RESISTANCE INDEX Right: 0.66 Left: 0.66 RA/AO RATIO (< 3.5 ) Right: 1.7 Left: 1.6 RA VELOCITY ( < 180 cm/s) Right: 167.3 cm/s Left: 162.9 cm/s Calcifications noted throughout aorta. lobulated contour right kidney. Hypoechoic areas bilateral kid neys = 1.7 x 1.5cm on the right and 1.4 x 1.3cm on the left. no evidence of renal artery stenosis as visualized. low resistive waveforms noted. good upstroke at segmentals at hilum IMPRESSION: No diagnostic evidence of renal artery stenosis. Atherosclerotic changes of the aorta and lobulation of the right renal contour. Hypoechoic lesions involving the kidneys do not meet the criteria of simp le cysts correlation with CT scan recommended.
[2021-01-13] MEDS ORDERED: IOPAMIDOL CONTRAST (ORAL USE) VIAL PO PRN (09:16)
[2021-01-13] MEDS: PARoxetine 10 MG TAB PO SCH (09:48)
[2021-01-13] MEDS: TRIAMTERENE-HCTZ 75-50MG 1 EACH TAB PO SCH (09:48)
[2021-01-13] MEDS: TAMSULOSIN 0.4 MG CAP.ER.24H PO SCH (09:48)
[2021-01-13] MEDS: NIFEdipine XL 30 MG TAB.ER.24 PO SCH (09:49)
[2021-01-13] MEDS: VALSARTAN 160 MG TAB PO SCH ×2 (09:49→20:29)
[2021-01-13] MEDS: ASPIRIN 81 MG PO SCH (09:49)
[2021-01-13] MEDS: carvediloL 6.25 MG TAB PO SCH (09:59)
--- NOTE | 2021-01-13 10:05 | ECHOF ---
Referral Reason:LV function MEASUREMENTS -------- HEIGHT: 172.7 cm WEIGHT: 71.7 kg BP: 112/60 RVIDd: 3.3 cm (< 3.3) IVSd: 1.4 cm (0.6 - 1.1) LVIDd: 4.4 cm (3.9 - 5.3) LVPWd: 1.4 cm (0.6 - 1.1) IVSs: 1.8 cm LVIDs: 3.2 cm LVPWs: 1.8 cm LA Diam: 3.9 cm (2.7 - 3.8) LAESV Index (A-L): 36.65 ml/m Ao Diam: 2.9 cm (2.0 - 3.7) AV Cusp: 1.7 cm (1.5 - 2.6) MV EXCURSION: 13.059 mm (> 18.000) MV EF SLOPE: 52 mm/s (70 - 150) EPSS: 0.3 cm MV E Greyson: 0.99 m/s MV DecT: 302 ms MV A Greyson: 1.08 m/s MV E/A Ratio: 0.91 AV maxP.28 mmHg AV meanP.91 mmHg FINDINGS -------- Resting bradycardia (HR<60bpm). This was a technically good study. The left ventricular size is normal. There is moderate concentric left ventricular hypertrophy. O verall left ventricular systolic function is normal with, an EF between 60 - 65 %. The right ventricle is mildly enlarged. LA is moderately dilated 34-39 ml/m2 The right atrium is normal in size. Interatrial and interventricular septum intact. Aortic valve is trileaflet and is mildly thickened. Trace amount of aortic regurgitation. There is mild aortic stenosis present. Peak/mean gradient across the Aortic Valve is 18.28mmHg / 7.91mmHg . The mitral valve leaflets are mildly thickened. Mild mitral regurgitation is present. The tricuspid valve appears structurally normal. Unable to estimate RVSP due to inadequate TR jet s pectral doppler profile. There is no pulmonic regurgitation present. The aortic root size is normal. Normal inferior vena cava with normal inspiratory collapse consistent with estimated right atrial pre ssure of 5 mmHg. There is no pericardial effusion. CONCLUSIONS -------- 1. The left ventricular size is normal. 2. There is moderate concentric left ventricular hypertrophy. 3. Overall left ventricular systolic function is normal with, an EF between 60 - 65 %. 4. The right ventricle is mildly enlarged. 5. LA is moderately dilated 34-39 ml/m2 6. Aortic valve is trileaflet and is mildly thickened. 7. Trace amount of aortic regurgitation. 8. There is mild aortic stenosis present. 9. Peak/mean gradient across the Aortic Valve is 18.28mmHg / 7.91mmHg. 10. The mitral valve leaflets are mildly thickened. 11. Mild mitral regurgitation is present. 12. There is no pericardial effusion. INDUSTRIAL REGISTERED NURSE: Lesvia Sampson RDCS
--- NOTE | 2021-01-13 13:24 | P.PN ---
Subjective This is a pleasant 82-year-old male past medical history significant for coronary artery disease s/p PCI ostial D1, ostial LM and proximal circumflex, hypertension, dyslipidemia, history of DVT, former nicotine dependence. He follows in the office with Dr. Brito, has not follow up since 2018. We have been asked to see in consultation for hypertensive urgency. Echocardiogram revealed EF of 6065 percent, LA is moderately dilated, mild aortic stenosis peak/mean gradient of 18 mmHg/8 mmHg. Ultrasound revealed no evidence of renal artery stenosis. Atherosclerotic changes at the aorta and lobulation of the right renal contour. Hypoechoic les ions involving the kidneys do not meet criteria simple cysts correlation with computed tomography scan recommended. Patient seen and examined at bedside, no acute distress. He denies any chest pain, shortness of breath, headache, lightheadedness, dizziness. His blood pressure has improved. Telemetry reviewed patient maintaining sinus mechanism heart rates 3840s. Patient currently maintained on carvedilol 6.25 mg twice a day, Nifedipine 30mg daily, Triamterene-Hctz 75mg-50mg daily, Valsartan 160mg BID, aspirin 81 mg daily, atorvastatin 20 mg nightly. Laboratory data reviewed sodium 129, potassium 4.3, BUN 19, serum creatinine 1.0, cortisol 10. PHYSICAL EXAMINATION Blood pressure 134/63, heart rate 50, afebrile, maintaining oxygen saturation is on room air CONSTITUTIONAL: No apparent distress. HEENT: Neck Supple. No JVD. CHEST EXAMINATION: Lungs are clear to auscultation. No chest wall tenderness is noted on palpation or with deep breathing. HEART EXAMINATION: Regular rate and rhythm. S1, S2 heard. Systolic murmur at right sternal border. No gallops or rub. ABDOMEN: Soft, nontender. Positive bowel sounds. EXTREMITIES: 2+ peripheral pulses, no lower extremity edema and no calf tenderness. NEUROLOGIC EXAMINATION: Patient is awake, alert and oriented x3. ASSESSMENT Uncontrolled hypertension Headache, blurry vision Coronary artery disease s/p PCI ostial D1, ostial LM and proximal circumflex Hypertension Dyslipidemia Former nicotine dependence Hyponatremia Mild aortic stenosis PLAN -Decrease Triamterene-Hctz 37.5mg-25mg daily -Decrease carvedilol 3.125 mg BID starting 01/14 -Continue Nifedipine 30mg daily, Valsartan 160mg BID -Continue aspirin and statin -serum aldosterone, metanephrines, and renin direct pending -24 hour urine metanephrines pending -Further recommendations based on clinical course Nurse Practitioner note has been reviewed, I agree with a documented findings and plan of care. Patient was seen and examined. Objective - Vital Signs Vital signs: Vital Signs Temp 97.7 F 01/13/21 08:00 Pulse 46 L 01/13/21 08:56 Resp 20 01/13/21 08:00 BP 131/72 01/13/21 08:00 Pulse Ox 97 01/13/21 08:00 Intake & Output 01/12/21 01/13/21 01/13/21 18:59 06:59 18:59 Intake Total 540 Output Total 275 Balance 265 Weight 72 kg Intake: Oral 540 Output: Urine 275 Other: Voiding Method Toilet Urinal # Voids 1 - Labs CBC & Chem 7: 01/11/21 16:41 01/13/21 06:15 Labs: Abnormal Lab Results - Last 24 Hours (Table) 01/13/21 Range/Units 06:15 Sodium 129 L (137-145) mmol/L Carbon Dioxide 21 L (22-30) mmol/L Calcium 8.1 L (8.4-10.2) mg/dL
--- NOTE | 2021-01-13 14:57 | P.PN ---
Subjective Progress Note Date: 01/13/21 Pts pressures better controlled today. Pending CT Abd read for kidney cysts. Objective - Vital Signs Vital signs: Vital Signs Temp 97.7 F 01/13/21 08:00 Pulse 61 01/13/21 12:00 Resp 20 01/13/21 12:00 BP 142/64 01/13/21 12:00 Pulse Ox 94 L 01/13/21 12:00 Intake & Output 01/12/21 01/13/21 01/13/21 18:59 06:59 18:59 Intake Total 540 120 Output Total 275 Balance 265 120 Weight 72 kg Intake: Oral 540 120 Output: Urine 275 Other: Voiding Method Toilet Urinal # Voids 1 1 - Exam Gen: awake, alert HEENT: normocephalic, atraumatic, good hearing acuity, moist mucous membranes Resp: good air exchange, breathing comfortably with no accessory muscle use, clear to auscultation bilaterally CVS: good distal perfusion x 4, regular rate and rhythm GI: soft, NTTP, ND : no SPT, no CVAT, joyner catheter not present MSK: no pitting edema, no clubbing Neuro: non-focal, moving all extremities Psych: cooperative, euthymic mood - Labs CBC & Chem 7: 01/11/21 16:41 01/13/21 06:15 Labs: Abnormal Lab Results - Last 24 Hours (Table) 01/13/21 Range/Units 06:15 Sodium 129 L (137-145) mmol/L Carbon Dioxide 21 L (22-30) mmol/L Calcium 8.1 L (8.4-10.2) mg/dL Assessment and Plan Assessment: Hypertensive emergency -Cardiology consulted -Current regimen: Nifedipine, valsartan, Coreg, and hydrochlorothiazidetriamterene -Discontinued home Imdur, losartan -Cardiac monitoring -Neuro checks -Fall precautions -Renal ultrasound -Urine metanephrines, aldosterone, renin pending Chronic conditions: Coronary artery disease, hyperlipidemia -Continue with home meds DVT prophylaxis -heparin subq The patient is admitted with an anticipated less than 2 midnight stay for evaluation of htn emergency CODE STATUS: Full Code Discussed with: Patient Anticipated discharge place: Home
--- NOTE | 2021-01-13 15:24 | CT ---
EXAMINATION TYPE: CT abdomen wo/w con DATE OF EXAM: 01/13/2021 COMPARISON: Renal ultrasound 01/13/2021 HISTORY: 89-year-old male Renal complex fluid collections TECHNIQUE: Contiguous axial scanning of the abdomen before and after administration of 100 ml Omnipaq ue 300 IV contrast. Delayed images through the kidneys and coronal/sagittal reconstructions performe d. CT DLP: 1130.9 mGycm Automated exposure control for dose reduction was used. FINDINGS: Heart normal size without pericardial effusion. Nonspecific two small cavitary nodules of the posterior right lung base measuring up to 1 cm. One of these has mildly thickened wall. Surveying the entire chest is recommended. Atypical fungal or mycoba cterial infections or septic emboli are in the differential in the differential. Other inflammatory p rocesses could be possible as well. No pleural effusion. No focal liver lesion or biliary ductal dilatation. Portal venous system is patent. Small 1.3 cm diverticulum from the second portion of the duodenum projecting into the pancreatic head region. Gallbladder, adrenal glands, and pancreas within normal limits. Calcified adenomas within the spleen. Bilateral renal cortical cysts measuring up to 1.5 and 0.9 cm on the right. Additional parapelvic cys ts on the right measuring up to 1.5 cm. Mild fullness of the right renal collecting system may be tr ansient. A couple cortical hypodensities within the left kidney measuring 1.3 and 0.8 cm likely cysts. No suspicious enhancing renal lesion seen. Moderate atherosclerotic calcifications infrarenal abdominal aorta and iliac arteries. No dilated small bowel, free fluid, or free air. Scattered prominent but nonenlarged mesenteric and r etroperitoneal lymph nodes are present. Moderate stool in the right side of the colon. Mild within the left side of the colon. Sigmoid divert iculosis. Redundant sigmoid colon. No pericolic inflammatory change. Small portion of the dome of the bladder is visualized. Pelvis is not imaged. Suspect an underlying lipoma measuring at least 4.5 cm of the left gluteus dorinda. Bones: Degenerative changes at the SI joints. Moderate to advanced multilevel spondylotic changes thr oughout the visualized spine. Laminectomy change from L3 through L4 levels. IMPRESSION: 1. COUPLE SMALL CAVITARY NODULES POSTERIOR RIGHT LUNG BASE MEASURING UP TO 1 CM. ONE OF THESE HAS A M ILDLY THICKENED WALL. RECOMMEND CONTRAST-ENHANCED CT CHEST TO SURVEY THE ENTIRE LUNGS. SOME DIFFERENT IAL CONSIDERATIONS INCLUDE UNUSUAL EMPHYSEMATOUS CYSTS, ATYPICAL FUNGAL OR MYCOBACTERIAL INFECTIONS, SEPTIC EMBOLI, OR INFLAMMATORY PROCESSES SUCH NECROBIOTIC NODULES AND EG. 2. BILATERAL RENAL CORTICAL CYSTS MEASURING UP TO 1.5 CM. ADDITIONAL PARAPELVIC CYSTS ON THE RIGHT ME ASURING UP TO 1.5 CM. 3. MILD FULLNESS OF THE RIGHT RENAL COLLECTING SYSTEM MAY BE TRANSIENT. SHORT INTERVAL FOLLOW-UP CELESTINO L ULTRASOUND CAN BE CONSIDERED TO EXCLUDE EARLY DEVELOPING HYDRONEPHROSIS. 4. SIGMOID DIVERTICULOSIS WITHOUT ACUTE DIVERTICULITIS. NOTE THAT THE PELVIS IS NOT IMAGED.
[2021-01-13] MEDS: SODIUM CHLORIDE 0.9% 1,000 ML IV SCH (18:24)
[2021-01-13] MEDS: ATORVASTATIN 20 MG TAB PO SCH (20:29)
[2021-01-14] MEDS: NIFEdipine XL 30 MG TAB.ER.24 PO SCH (08:57)
[2021-01-14] MEDS: VALSARTAN 160 MG TAB PO SCH (08:57)
[2021-01-14] MEDS: TAMSULOSIN 0.4 MG CAP.ER.24H PO SCH (08:57)
[2021-01-14] MEDS: PARoxetine 10 MG TAB PO SCH (08:57)
[2021-01-14] MEDS: ASPIRIN 81 MG PO SCH (08:57)
[2021-01-14] MEDS: HEPARIN SODIUM,PORCINE/PF 5,000 UNIT/0.5 ML SYRINGE SQ SCH (08:57)
[2021-01-14] MEDS ORDERED: TRIAMTERENE-HCTZ 37.5-25MG 1 EACH TAB PO SCH (09:00)
[2021-01-14] MEDS ORDERED: carvediloL 3.125 MG TAB PO SCH (09:00)
[2021-01-14 09:03] VITALS: RESP 20; TEMP 96
[2021-01-14 09:32] LABS: Calcium 8.6 mg/dL (8.4-10.2); Potassium 4.6 mmol/L (3.5-5.1)
[2021-01-14] MEDS ORDERED: RX INFO: IV CONTRAST WAS GIVEN 1 EACH MISC MISCELLANE PRN (11:08)
[2021-01-14 14:18] VITALS: BP 171/76; PULSE 53
--- NOTE | 2021-01-14 14:18 | CT ---
EXAMINATION TYPE: CT chest w con DATE OF EXAM: 01/14/2021 COMPARISON: None HISTORY: cavitary nodule CT DLP: 379 mGycm Automated exposure control for dose reduction was used. CONTRAST: Performed with IV Contrast, patient injected with 100 mL of Isovue 300. Images obtained from the thoracic inlet to the diaphragm with IV contrast. There is some linear interstitial infiltrate and subsegmental atelectasis in the posterior lower lung martinez. There is 10 mm subpleural cavitating nodules in the posterior right lower lobe. There is no pleural effusion. Heart size is normal. There is no pericardial effusion. There are no hilar masses. There is no medias tinal adenopathy. Thoracic aorta is atheromatous. There are calcified granulomata in the mediastinum. Thoracic spine is intact. There is no compression fracture. Sternum is intact. Upper abdominal soft tissues are intact. IMPRESSION: Old granulomatous disease. Interstitial infiltrates and subsegmental atelectasis posterior lung bases with 2 small cavitating subpleural nodules in the right lower lobe. These appear not changed compare d to CT scan of the abdomen yesterday. Appearance is nonspecific.
--- NOTE | 2021-01-14 16:10 | P.PN ---
Subjective Patient is doing well. He is ablating around the room. He is normal. She feels a lot better His blood pressures very well controlled now However yesterday we had To move because of a low sodium in the setting of valsartan and Maxide Today's sodium is 130 renal function is normal On examination heart sounds are normal Breath sounds are clear Blood pressure is very well controlled now 141/66 mmHg Pulse rate in the 50s Afebrile Impression Uncontrolled severe hypertension, hypertensive urgency Early onset hypertension, no prior secondary workup performed Suggest Continue valsartan 160 mg twice daily line continue Maxide 37.5/20 femoral grams by mouth daily Continue Procardia XL 30 mg daily at noontime Continue carvedilol 3.125 mg twice daily Change to atorvastatin Continue aspirin Follow-up with Dr. Matos in about 2 weeks History secondary hypertension direct renin level .3 which is normal Aldosterone level of normal of 3.1 Random cortisol level of 10 workup shows Atheromatous changes noted with atheromatous plaque at the origin of the renal arteries bilaterally Kidneys and answers in a symmetric fashion Renal artery Dopplers showing no diagnostic evidence of renal artery stenosis Atherosclerotic changes in the aorta Hyperechoic lesions in the kidneys, CT recommended The patient may go home today Objective - Vital Signs Vital signs: Vital Signs Temp 96.0 F L 01/14/21 08:00 Pulse 53 L 01/14/21 12:00 Resp 20 01/14/21 12:00 BP 171/76 01/14/21 12:00 Pulse Ox 99 01/14/21 12:00 Intake & Output 01/13/21 01/14/21 01/14/21 18:59 06:59 18:59 Intake Total 300 240 Balance 300 240 Weight 74 kg Intake: Oral 300 240 Other: # Voids 1 1 - Labs CBC & Chem 7: 01/11/21 16:41 01/14/21 08:30 Labs: Abnormal Lab Results - Last 24 Hours (Table) 01/14/21 Range/Units 08:30 Sodium 130 L (137-145) mmol/L BUN 22 H (9-20) mg/dL Glucose 171 H (74-99) mg/dL
--- NOTE | 2021-01-14 16:53 | P.DS ---
Providers Date of admission: 01/11/21 17:58 Expected date of discharge: 01/14/21 Attending physician: Molina Estrada MD Consults: 01/11/21 18:00 Consult Physician Routine Consulting Provider: Ricardo Delcid Consult Reason/Comments: malignant hypertension Do you want consulting provider notified?: Yes Primary care physician: [facility] Course: Hypertensive emergency Admitted to hospital with Cardiology consulted. Patients BP medications were titrated to the following: Nifedipine, valsartan, Coreg, and hydrochlorothiazidetriamterene, and he was e-prescribed these on discharge with follow up. Secondary HTN causes were assessed and were negative for MARCIE via US, f/u CT Abd showed cortical renal cysts. Pts home imdur and losartan were d/c'd. Urine metanephrines, renin, aldosterone, cortisol were all normal. Pt to f/u with PCP and cardiology. Chronic conditions: Coronary artery disease, hyperlipidemia -Continued with home meds for these issues. Pulmonary Nodule Pt was advised to f/u with PCP and repeat CT scan in 6months to 1 year. Assessment: Gen: awake, alert HEENT: normocephalic, atraumatic, good hearing acuity, moist mucous membranes Resp: good air exchange, breathing comfortably with no accessory muscle use CVS: good distal perfusion x 4, GI: soft, NTTP, ND : no SPT, no CVAT, joyner catheter not present MSK: no pitting edema, no clubbing Neuro: non-focal, moving all extremities Psych: cooperative, euthymic mood Patient Condition at Discharge: Good Plan - Discharge Summary Discharge Rx Participant: Yes New Discharge Prescriptions: New Valsartan [Diovan] 160 mg PO BID 30 Days #60 tab carvediloL [Coreg] 3.125 mg PO BID-W/MEALS #60 tab NIFEdipine XL [Procardia XL] 30 mg PO DAILY #30 tablet Triamterene-Hctz 37.5-25Mg [Maxzide 37.5-25] 1 each PO DAILY #30 tab Continue Tamsulosin [Flomax] 0.4 mg PO DAILY PARoxetine [Paxil] 10 mg PO DAILY Aspirin EC [Ecotrin Low Dose] 81 mg PO DAILY #30 tablet. Omeprazole 20 mg PO DAILY Ferrous Sulfate [Iron (65 MG Elemental)] 325 mg PO DAILY Cholecalciferol [Vitamin D3 (10 Mcg = 400 Iu)] 10 mcg PO DAILY Magnesium Gluconate [Magonate] 500 mg PO DAILY Diclofenac Sodium Gel [Voltaren Gel] 1 applic TOPICAL DAILY PRN PRN Reason: Pain Atorvastatin Calcium [Lipitor] 20 mg PO HS Discontinued Isosorbide Mononitrate ER [Imdur] 60 mg PO BID #1 tab Losartan Potassium 100 mg PO BID Carvedilol [Coreg] 6.25 mg PO BID-W/MEALS Spironolactone [Aldactone] 50 mg PO DAILY Minocycline [Minocin] 50 mg PO DAILY Discharge Medication List PARoxetine [Paxil] 10 mg PO DAILY 07/21/14 [History] Tamsulosin [Flomax] 0.4 mg PO DAILY 07/21/14 [History] Aspirin EC [Ecotrin Low Dose] 81 mg PO DAILY #30 tablet. 11/27/16 [Rx] Atorvastatin Calcium [Lipitor] 20 mg PO HS 01/11/21 [History] Cholecalciferol [Vitamin D3 (10 Mcg = 400 Iu)] 10 mcg PO DAILY 01/11/21 [History] Diclofenac Sodium Gel [Voltaren Gel] 1 applic TOPICAL DAILY PRN 01/11/21 [History] Ferrous Sulfate [Iron (65 MG Elemental)] 325 mg PO DAILY 01/11/21 [History] Magnesium Gluconate [Magonate] 500 mg PO DAILY 01/11/21 [History] Omeprazole 20 mg PO DAILY 01/11/21 [History] Valsartan [Diovan] 160 mg PO BID 30 Days #60 tab 01/13/21 [Rx] NIFEdipine XL [Procardia XL] 30 mg PO DAILY #30 tablet 01/14/21 [Rx] Triamterene-Hctz 37.5-25Mg [Maxzide 37.5-25] 1 each PO DAILY #30 tab 01/14/21 [Rx] carvediloL [Coreg] 3.125 mg PO BID-W/MEALS #60 tab 01/14/21 [Rx] Follow up Appointment(s)/Referral(s): Suresh Matos MD [STAFF PHYSICIAN] - 1 Week Al An MD [Primary Care Provider] - 1-2 days Patient Instructions/Handouts: Chronic Hypertension (DC) Activity/Diet/Wound Care/Special Instructions: NursePlease have 2 weeks of any new meds filled and fax new meds to [facility] @ [phone]. Discharge Disposition: HOME SELF-CARE
[2021-01-17 12:42] LABS: Urine Creatinine, 24 Hr 0.4 gm/24h (1.0-2.0)
[2021-01-19 21:34] LABS: Metanephrine, Free <25 pg/mL (< OR = 57); Normetanephrine, Free 83 pg/mL (< OR = 148); Total, Free (MN + NMN) 83 pg/mL (< OR = 205)
== END 2021-01-14 15:46 | disposition home or self-care (01) ==
LOC: EC 15:50 → 3SCARD 17:58
PROVIDERS: ADMIT Internal Medicine; ATTEND Internal Medicine
DX: I16.1 Hypertensive emergency (principal); I11.0 Hypertensive heart disease with heart failure; I50.9 Heart failure, unspecified; Z20.822 Contact with and (suspected) exposure to COVID-19; E78.5 Hyperlipidemia, unspecified; I25.10 Atherosclerotic heart disease of native coronary artery without angina pectoris; N28.1 Cyst of kidney, acquired; R91.1 Solitary pulmonary nodule; I45.2 Bifascicular block; I44.0 Atrioventricular block, first degree; I25.2 Old myocardial infarction; M19.90 Unspecified osteoarthritis, unspecified site; E87.1 Hypo-osmolality and hyponatremia; Z79.02 Long term (current) use of antithrombotics/antiplatelets; Z79.82 Long term (current) use of aspirin; Z79.899 Other long term (current) drug therapy; Z88.5 Allergy status to narcotic agent; Z91.030 Bee allergy status; Z88.8 Allergy status to other drugs, medicaments and biological substances; Z96.651 Presence of right artificial knee joint; Z98.61 Coronary angioplasty status; Z87.891 Personal history of nicotine dependence; Z86.718 Personal history of other venous thrombosis and embolism; Z86.73 Personal history of transient ischemic attack (TIA), and cerebral infarction without residual deficits; Z82.49 Family history of ischemic heart disease and other diseases of the circulatory system
CPT/HCPCS: 99285; 96374; 96376 ×2; 96372 ×4; 96375 ×2; 36415; 93005; 93306; 83835 ×2; 80053; 80048 ×2; 82533; 82088; 84244; 83605; 83735 ×2; 84484; 85025; 85610; 85730; 87635; 71045; 93975; 70450; 71260; 74170; G0378 ×4; J2270; J0360; Q9967 ×2; J1644 ×4

== ENCOUNTER 2021-07-04 15:56 | Inpatient (IN) | payer MEDICARE, OTHER ==
[2021-07-04] MEDS ORDERED: SODIUM CHLORIDE 0.9% 1,000 ML IV STA (17:07)
--- NOTE | 2021-07-04 17:07 | ED ---
General Adult HPI - General Stated complaint: Bowel issue-sent by Dr. An - History of Present Illness Initial comments: Patient has had abdominal pain for 1 week, saw his PCP today who did an xray and advised that he had bowel obstruction and to come to the ER. No history of bowel obstruction in the past. No abdominal surgeries in the past. Last colonoscopy was >10 years ago, diverticula noted but no other findings, no need for follow up. Patient states that he has experienced nausea and vomiting for the past week and has not been eating or drinking. He has minimal abdominal pain but states that he just does not feel good. - Related Data Home Medications Medication Instructions Recorded Confirmed PARoxetine [Paxil] 20 mg PO DAILY 07/21/14 07/04/21 Tamsulosin [Flomax] 0.4 mg PO DAILY 07/21/14 07/04/21 Omeprazole 20 mg PO DAILY 01/11/21 07/04/21 Atorvastatin [Lipitor] 20 mg PO HS 07/04/21 07/04/21 Clobetasol Propionate [Temovate 1 applic TOPICAL BID PRN 07/04/21 07/04/21 0.05% Cream] Doxycycline [Vibramycin] 50 mg PO BID 07/04/21 07/04/21 Losartan/Hydrochlorothiazide 1 tab PO DAILY 07/04/21 07/04/21 [Losartan-Hctz 100-25 mg Tab] metroNIDAZOLE 0.75% CREAM 1 applic TOPICAL BID PRN 07/04/21 07/04/21 [Metrocream 0.75%] metroNIDAZOLE 1% GEL [Metrogel 1%] 1 applic TOPICAL BID PRN 07/04/21 07/04/21 Allergies Allergy/AdvReac Type Severity Reaction Status Date / Time peanut Allergy Rash/Hives Verified 07/04/21 21:58 dutasteride [From Avodart] AdvReac Rapid Verified 07/04/21 21:58 Heart Rate morphine AdvReac PASS OUT Verified 07/04/21 21:58 venom-honey bee AdvReac PASS OUT Verified 07/04/21 21:58 [bee venom (honey bee)] Review of Systems ROS Statement: Those systems with pertinent positive or pertinent negative responses have been documented in the HPI. ROS Other: All systems not noted in ROS Statement are negative. Past Medical History Past Medical History: Coronary Artery Disease (CAD), Heart Failure, CVA/TIA, Deep Vein Thrombosis (DVT), Hyperlipidemia, Hypertension, Myocardial Infarction ([place]), Osteoarthritis (OA) Additional Past Medical History / Comment(s): states multiple small stroke, htn, 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 states [place] and stent placement 2010. Last Myocardial Infarction Date:: 2010 History of Any Multi-Drug Resistant Organisms: None Reported Past Surgical History: Ear Surgery, Heart Catheterization With Stent, Joint Replacement, Orthopedic Surgery Additional Past Surgical History / Comment(s): Lt knee, Rt knee, cataract removal Past Anesthesia/Blood Transfusion Reactions: No Reported Reaction Date of Last Stent Placement:: 2010 Past Psychological History: No Psychological Hx Reported Additional Psychological History / Comment(s): Per pt. in the s went to a psychiatrist/therapist for a short peroid of time. Smoking Status: Former smoker Past Alcohol Use History: None Reported Past Drug Use History: None Reported - Past Family History Son(s) Family Medical History: Coronary Artery Disease (CAD) Additional Family Medical History / Comment(s): son from heart disease, was born with heart defect. General Exam - General Exam Comments Initial Comments: Physical Exam GENERAL: Ill appearing HENT: Normocephalic, Atraumatic. EYES: PERRL, EOMI PULMONARY: Unlabored respirations. CARDIOVASCULAR: RRR Warm and well perfused extremities ABDOMEN: Soft, non-distended SKIN: Deng : Deferred NEUROLOGIC: Alert and oriented Normal speech MUSCULOSKELETAL: Moving all extremities with no apparent injury PSYCHIATRIC: No SI/HI Course Vital Signs 07/04/21 07/04/21 07/04/21 17:06 20:35 23:22 Temperature 97.8 F Pulse Rate 68 51 L 60 Respiratory 18 18 18 Rate Blood Pressure 193/77 171/79 172/84 O2 Sat by Pulse 100 99 96 Oximetry Medical Decision Making - Medical Decision Making The patient was seen and evaluated, patient reportedly was told that he had a bowel obstruction outpatient x-ray, labs and CT imaging were obtained Labs with multiple significant electrolyte abnormalities including hyponatremia, hypokalemia, hypocalcemia Computed tomography scan reveals no sign of acute bowel obstruction or abnormality of the abdomen however patient could have ileus secondary to electrolyte abnormalities She received IV fluids, care was discussed with Dr. menendez from the [facility] accepts the admission for hypovolemic hyponatremia, hypokalemia and hypocalcemia due to persistent abdominal pain and nausea. - Lab Data Result diagrams: 07/04/21 17:19 07/04/21 17:19 Lab Results 07/04/21 07/04/21 07/04/21 Range/Units 17:19 17:19 17:19 WBC 5.2 (3.8-10.6) k/uL RBC 4.47 (4.30-5.90) m/uL Hgb 14.4 (13.0-17.5) gm/dL Hct 43.3 (39.0-53.0) % MCV 96.8 (80.0-100.0) fL MCH 32.1 (25.0-35.0) pg MCHC 33.2 (31.0-37.0) g/dL RDW 12.8 (11.5-15.5) % Plt Count 292 (150-450) k/uL MPV 7.0 Neutrophils % (Manual) 58 % Lymphocytes % (Manual) 22 % Monocytes % (Manual) 14 % Eosinophils % (Manual) 6 % Neutrophils # (Manual) 3.02 (1.3-7.7) k/uL Lymphocytes # (Manual) 1.14 (1.0-4.8) k/uL Monocytes # (Manual) 0.73 (0-1.0) k/uL Eosinophils # (Manual) 0.31 (0-0.7) k/uL Nucleated RBCs 0 (0-0) /100 WBC Manual Slide Review Performed Toxic Vacuolation Present RBC Morphology Normal Sodium 126 L (137-145) mmol/L Potassium 3.3 L (3.5-5.1) mmol/L Chloride 96 L (98-107) mmol/L Carbon Dioxide 21 L (22-30) mmol/L Anion Gap 9 mmol/L BUN 21 H (9-20) mg/dL Creatinine 0.82 (0.66-1.25) mg/dL Est GFR (CKD-EPI)AfAm >90 (>60 ml/min/1.73 sqM) Est GFR (CKD-EPI)NonAf 78 (>60 ml/min/1.73 sqM) Glucose 95 (74-99) mg/dL Plasma Lactic Acid Daniel (0.7-2.0) mmol/L Calcium 7.7 L (8.4-10.2) mg/dL Total Bilirubin 1.1 (0.2-1.3) mg/dL AST 25 (17-59) U/L ALT 15 (4-49) U/L Alkaline Phosphatase 54 (38-126) U/L Total Protein 5.2 L (6.3-8.2) g/dL Albumin 2.7 L (3.5-5.0) g/dL Amylase 46 (30-110) U/L Lipase 102 (23-300) U/L Urine Color Light Yellow Urine Appearance Clear (Clear) Urine pH 5.5 (5.0-8.0) Ur Specific [place] 1.037 H (1.001-1.035) Urine Protein Negative (Negative) Urine Glucose (UA) Negative (Negative) Urine Ketones Negative (Negative) Urine Blood Small H (Negative) Urine Nitrite Negative (Negative) Urine Bilirubin Negative (Negative) Urine Urobilinogen <2.0 (<2.0) mg/dL Ur Leukocyte Esterase Negative (Negative) Urine RBC 1 (0-5) /hpf Urine WBC 1 (0-5) /hpf Ur Squamous Epith Cells 1 (0-4) /hpf 07/04/21 Range/Units 17:19 WBC (3.8-10.6) k/uL RBC (4.30-5.90) m/uL Hgb (13.0-17.5) gm/dL Hct (39.0-53.0) % MCV (80.0-100.0) fL MCH (25.0-35.0) pg MCHC (31.0-37.0) g/dL RDW (11.5-15.5) % Plt Count (150-450) k/uL MPV Neutrophils % (Manual) % Lymphocytes % (Manual) % Monocytes % (Manual) % Eosinophils % (Manual) % Neutrophils # (Manual) (1.3-7.7) k/uL Lymphocytes # (Manual) (1.0-4.8) k/uL Monocytes # (Manual) (0-1.0) k/uL Eosinophils # (Manual) (0-0.7) k/uL Nucleated RBCs (0-0) /100 WBC Manual Slide Review Toxic Vacuolation RBC Morphology Sodium (137-145) mmol/L Potassium (3.5-5.1) mmol/L Chloride (98-107) mmol/L Carbon Dioxide (22-30) mmol/L Anion Gap mmol/L BUN (9-20) mg/dL Creatinine (0.66-1.25) mg/dL Est GFR (CKD-EPI)AfAm (>60 ml/min/1.73 sqM) Est GFR (CKD-EPI)NonAf (>60 ml/min/1.73 sqM) Glucose (74-99) mg/dL Plasma Lactic Acid Daniel 1.7 (0.7-2.0) mmol/L Calcium (8.4-10.2) mg/dL Total Bilirubin (0.2-1.3) mg/dL AST (17-59) U/L ALT (4-49) U/L Alkaline Phosphatase (38-126) U/L Total Protein (6.3-8.2) g/dL Albumin (3.5-5.0) g/dL Amylase (30-110) U/L Lipase (23-300) U/L Urine Color Urine Appearance (Clear) Urine pH (5.0-8.0) Ur Specific [place] (1.001-1.035) Urine Protein (Negative) Urine Glucose (UA) (Negative) Urine Ketones (Negative) Urine Blood (Negative) Urine Nitrite (Negative) Urine Bilirubin (Negative) Urine Urobilinogen (<2.0) mg/dL Ur Leukocyte Esterase (Negative) Urine RBC (0-5) /hpf Urine WBC (0-5) /hpf Ur Squamous Epith Cells (0-4) /hpf Disposition Clinical Impression: Hypokalemia, Hyponatremia, Hypocalcemia, Nausea, Dehydration Disposition: ADMITTED IP TO THIS HOSP Condition: Serious Is patient prescribed a controlled substance at d/c from ED?: No
[2021-07-04] MEDS ORDERED: HYDROmorphone 0.5 MG/0.5 ML SYRINGE IVP STA (17:10)
[2021-07-04] MEDS ORDERED: ONDANSETRON 4 MG/2 ML VIAL IVP STA (17:10)
[2021-07-04 17:44] LABS: HCT 43.3 % (39.0-53.0); HGB 14.4 gm/dL (13.0-17.5); MCH 32.1 pg (25.0-35.0); MCHC 33.2 g/dL (31.0-37.0); MCV 96.8 fL (80.0-100.0); Platelet Count 292 k/uL (150-450); RBC 4.47 m/uL (4.30-5.90); RDW 12.8 % (11.5-15.5); WBC 5.2 k/uL (3.8-10.6)
[2021-07-04 17:50] LABS: Potassium 3.3 mmol/L (3.5-5.1)
[2021-07-04 17:51] LABS: ALT 15 U/L (4-49); AST 25 U/L (17-59); African American GFR (CKD) >90 (>60 ml/min/1.73 sqM); Albumin 2.7 g/dL (3.5-5.0); Alkaline Phosphatase 54 U/L (38-126); Amylase 46 U/L (30-110); Anion Gap 9 mmol/L; Blood Urea Nitrogen 21 mg/dL (9-20); Calcium 7.7 mg/dL (8.4-10.2); Carbon Dioxide 21 mmol/L (22-30); Chloride 96 mmol/L (98-107); Glucose 95 mg/dL (74-99); Lipase 102 U/L (23-300); Non-African American GFR(CKD) 78 (>60 ml/min/1.73 sqM); Sodium 126 mmol/L (137-145); Total Bilirubin 1.1 mg/dL (0.2-1.3); Total Protein 5.2 g/dL (6.3-8.2)
[2021-07-04 18:29] LABS: Eosinophils # (M) 0.31 k/uL (0-0.7); Lymphocytes # (M) 1.14 k/uL (1.0-4.8); Monocytes # (M) 0.73 k/uL (0-1.0); Neutrophils # (M) 3.02 k/uL (1.3-7.7); Neutrophils % (M) 58 %; Nucleated Red Blood Cells 0 /100 WBC (0-0); Total Cells Counted 100; Toxic Vacuolation Present
[2021-07-04 18:31] LABS: RBC Morphology Normal
--- NOTE | 2021-07-04 18:59 | CT ---
EXAMINATION TYPE: CT abdomen pelvis w con DATE OF EXAM: 07/04/2021 COMPARISON: 01/13/2021 HISTORY: abd pian CT DLP: 1009.9 mGycm Automated exposure control for dose reduction was used. CONTRAST: Performed with IV Contrast, patient injected with 100 mL of Isovue 300. Images obtained from the diaphragm to the floor the pelvis with IV contrast. There is some mild atelectasis at the lung bases. Heart size is normal. There is no pericardial effus ion. Liver is intact. There are calcified splenic granulomata. Stomach is intact. There is no pancrea tic mass. The bile ducts are not dilated. Gallbladder is intact. There is no adrenal mass. Kidneys show satisfactory contrast opacification. There is no hydronephrosi s. There are small renal cortical and parapelvic cysts noted. Ureters are not dilated. There is no re troperitoneal adenopathy. Bladder distends smoothly. There is no inguinal hernia. Prostate is enlarge d and measures 6.2 cm. There is no free fluid in the pelvis. There is no mesenteric edema. No ascites or free air. No sign of a bowel obstruction. Appendix not de finitely seen. No sign of thickened appendix. There are mild spondylotic changes in the lumbar spine. No compression fracture. The bony pelvis is i ntact. Proximal femurs and hip joints are intact. Delayed images show normal renal excretion. IMPRESSION: No acute abnormality of the abdomen and pelvis. Subsegmental atelectasis at the lung bases increased compared to old exam. 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
[2021-07-04] MEDS ORDERED: ONDANSETRON 4 MG/2 ML VIAL IVP PRN (20:39)
[2021-07-04] MEDS ORDERED: NALOXONE 0.4 MG/ML 1 ML VIAL IV PRN (20:39)
[2021-07-04] MEDS: SODIUM CHLORIDE 0.9% 1,000 ML IV SCH (21:21)
[2021-07-04 21:23] LABS: Appearance,Urine Clear (Clear); Bilirubin,Urine Negative (Negative); Blood,Urine Small (Negative); Color,Urine Light Yellow; Glucose,Urine (UA) Negative (Negative); Ketones,Urine Negative (Negative); Leukocyte Esterase,Urine Negative (Negative); Nitrite,Urine Negative (Negative); PH, Urine 5.5 (5.0-8.0); Protein,Urine Negative (Negative); RBC,Urine 1 /hpf (0-5); Specific Gravity,Urine 1.037 (1.001-1.035); Squamous Epithelial Cell,Urine 1 /hpf (0-4); Urobilinogen,Urine <2.0 mg/dL (<2.0); WBC,Urine 1 /hpf (0-5)
--- NOTE | 2021-07-05 01:41 | P.HPIM ---
History of Present Illness H&P Date: 07/04/21 Patient is an 89-year-old male with a PMH of hypertension, hyperlipidemia, coronary artery disease, who presents to the emergency room with complaints of abdominal pain and nausea. Patient reports that over the past 1 week, he has had intermittent nausea without vomiting, with no clear etiology. He also reports 4 days of hypogastric abdominal cramping, unable to quantify, lasting for a few minutes at a time with no clear alleviating or exacerbating features. The patient reports being seen at his PCPs office earlier today where an x-ray was done and the patient was advised to go to the emergency room for a possible bowel obstruction. He denied fever, chills, cough, chest pain, shortness of breath, diarrhea. Denied any history of abdominal surgeries in the past. Reports that as a result of his nausea, he has been unable to eat or drink much. In the emergency room, laboratory evaluation was remarkable for sodium 126, potassium 3.3, chloride 96, CO2 21, calcium 7.7. CT abdomen and pelvis was unremarkable. Review of systems: Pertinent positives and negatives as discussed in HPI, a complete review of systems was performed and all other systems are negative. Physical examination: General: non toxic, no distress, appears at stated age, normal weight Derm: no unusual rashes/lesions no unusual ecchymoses, warm, dry Head: atraumatic, normocephalic, symmetric Eyes: EOMI, no lid lag, anicteric sclera, pupils equal round reactive to light ENT: Nose and ears atraumatic, no thrush, no pharyngeal erythema Neck: No thyromegaly, no cervical lymphadenopathy, trachea midline, supple Mouth: no lip lesion, mucus membranes moist Cardiovascular: S1S2 reg, no murmur, positive posterior tibial pulse bilateral, no edema, capillary refill less than 2 seconds Lungs: CTA bilateral, no rhonchi, no rales , no accessory muscle use Abdominal: soft, nontender to palpation, no guarding, no appreciable organomegaly, normal bowel sounds Ext: no gross muscle atrophy, muscle strength 5 out of 5 in all 4 extremities grossly, no contractures, Neuro: CN II-XI grossly intact, light touch intact all 4 extremities, finger to nose within normal limits, Psych: Alert, oriented, appropriate affect Assessment/plan Hypochloremic hyponatremia, likely due to poor oral intake -IV fluids -Clear liquid diet -Antiemetics Hypokalemia -Replace and monitor Chronic conditions: Coronary artery disease, hypertension, hyperlipidemia -Continue with home meds -Hold diuretics DVT prophylaxis -Heparin subq The patient is admitted with an anticipated greater than 2 midnight stay for evaluation of hyponatremia CODE STATUS: Full Code Discussed with: Patient Anticipated discharge date: 2-[address]: Home Past Medical History Past Medical History: Coronary Artery Disease (CAD), Heart Failure, CVA/TIA, Deep Vein Thrombosis (DVT), Hyperlipidemia, Hypertension, Myocardial Infarction ([place]), Osteoarthritis (OA) Additional Past Medical History / Comment(s): states multiple small stroke, htn, 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 states [place] and stent placement 2010. Last Myocardial Infarction Date:: 2010 History of Any Multi-Drug Resistant Organisms: None Reported Past Surgical History: Ear Surgery, Heart Catheterization With Stent, Joint Re placement, Orthopedic Surgery Additional Past Surgical History / Comment(s): Lt knee, Rt knee, cataract removal Past Anesthesia/Blood Transfusion Reactions: No Reported Reaction Date of Last Stent Placement:: 2010 Past Psychological History: No Psychological Hx Reported Additional Psychological History / Comment(s): Per pt. in the s went to a psychiatrist/therapist for a short peroid of time. Smoking Status: Former smoker Past Alcohol Use History: None Reported Past Drug Use History: None Reported - Past Family History Son(s) Family Medical History: Coronary Artery Disease (CAD) Additional Family Medical History / Comment(s): son from heart disease, was born with heart defect. Medications and Allergies Home Medications Medication Instructions Recorded Confirmed Type PARoxetine [Paxil] 20 mg PO DAILY 07/21/14 07/04/21 History Tamsulosin [Flomax] 0.4 mg PO DAILY 07/21/14 07/04/21 History Omeprazole 20 mg PO DAILY 01/11/21 07/04/21 History Atorvastatin [Lipitor] 20 mg PO HS 07/04/21 07/04/21 History Clobetasol Propionate [Temovate 1 applic TOPICAL BID PRN 07/04/21 07/04/21 History 0.05% Cream] Doxycycline [Vibramycin] 50 mg PO BID 07/04/21 07/04/21 History Losartan/Hydrochlorothiazide 1 tab PO DAILY 07/04/21 07/04/21 History [Losartan-Hctz 100-25 mg Tab] metroNIDAZOLE 0.75% CREAM 1 applic TOPICAL BID PRN 07/04/21 07/04/21 History [Metrocream 0.75%] metroNIDAZOLE 1% GEL [Metrogel 1%] 1 applic TOPICAL BID PRN 07/04/21 07/04/21 History Allergies Allergy/AdvReac Type Severity Reaction Status Date / Time peanut Allergy Rash/Hives Verified 07/04/21 21:58 dutasteride [From Avodart] AdvReac Rapid Verified 07/04/21 21:58 Heart Rate morphine AdvReac PASS OUT Verified 07/04/21 21:58 venom-honey bee AdvReac PASS OUT Verified 07/04/21 21:58 [bee venom (honey bee)] Physical Exam Vitals: Vital Signs Temp Pulse Resp BP Pulse Ox 07/04/21 20:35 51 L 18 171/79 99 07/04/21 17:06 97.8 F 68 18 193/77 100 Intake and Output 07/04/21 07/04/21 07/04/21 06:59 14:59 22:59 Other: Weight 77.111 kg Results CBC & Chem 7: 07/04/21 17:19 07/04/21 17:19 Labs: Abnormal Lab Results - Last 24 Hours (Table) 07/04/21 07/04/21 Range/Units 17:19 17:19 Sodium 126 L (137-145) mmol/L Potassium 3.3 L (3.5-5.1) mmol/L Chloride 96 L (98-107) mmol/L Carbon Dioxide 21 L (22-30) mmol/L BUN 21 H (9-20) mg/dL Calcium 7.7 L (8.4-10.2) mg/dL Total Protein 5.2 L (6.3-8.2) g/dL Albumin 2.7 L (3.5-5.0) g/dL Ur Specific [place] 1.037 H (1.001-1.035) Urine Blood Small H (Negative)
[2021-07-05] MEDS: TAMSULOSIN 0.4 MG CAP.ER.24H PO SCH (07:40)
[2021-07-05] MEDS: PARoxetine 20 MG TAB PO SCH (07:40)
[2021-07-05] MEDS: HEPARIN SODIUM,PORCINE/PF 5,000 UNIT/0.5 ML SYRINGE SQ SCH ×2 (07:41→15:41)
[2021-07-05] MEDS: LOSARTAN 50 MG TAB PO SCH (08:07)
--- NOTE | 2021-07-05 08:40 | P.PN ---
Subjective Progress Note Date: 07/05/21 Hospital course: Patient is a very pleasant 89-year-old male with a past medical history of CAD status post MS and stent placement in 2010, hypertension, hyperlipidemia, GERD, TIAs, and BPH. He presented to the emergency department with a chief complaint of loss of appetite and generally feeling unwell 1 week. In the emergency department patient was seen and fully evaluated. Labs obtained CBC unremarkable, CMP revealing hyponatremia with sodium of 126, hypochloremia with chloride of 96, hypokalemia with potassium of 3.8, and hypoalbuminemia with albumin of 2.7. CT abdomen and pelvis obtained and was negative for acute intra- abdominal abnormality, revealed subsegmental atelectasis at lung bases slightly increased compared to prior exam and emphysematous changes treating allusion of small cavitary nodules at the right lung base reported as stable when compared to prior examination. Urinalysis was negative for infection. Patient was given a 1 L bolus 0.9% normal saline and admitted under services for Hypochloremic hyponatremia secondary to dehydration and poor oral intake. Physical exam: Patient seen and fully evaluated at bedside this morning. Patient reports feeling "much better" this morning. Pt states "for the first time in over a week I am looking forward to eating a real meal." Patient is tolerating clear liquid diet overnight and denies any further episodes of nausea and continues to deny any episodes of vomiting or diarrhea, dizziness or lightheadedness, chest pain, palpitations, shortness of breath, or experiencing any abdominal pain. Morning labs reviewed improvement of hyponatremia with sodium up to 132 and resolution of hypokalemia and hypochloremia. Vital signs reviewed and stable. General: Nontoxic, no distress and appears stated age. Derm: Skin warm and dry, normal coloration for ethnicity. Head: Atraumatic, normocephalic and symmetric. Eyes: EOMs intact, no lid lag, and anicteric sclera Mouth: no lip lesions, mucus membranes dry Cardiovascular: regular rate and rhythm with normal S1S2, no murmur, positive posterior tibial pulses bilaterally, and cap refill < 2 seconds. Lungs: Respirations even, regular, and unlabored on room air. Lungs CTA bilaterally, no rhonchi, no rales, no wheezing, and no accessory muscle usage. Abdominal: soft, nontender to palpation, no guarding, no appreciable organomegaly Ext: ROM intact. No gross muscle atrophy, no edema, no contractures Neuro: Speech clear, face symmetrical and CN II-XII grossly intact with no noted focal neuro deficits Psych: Alert and oriented to person, place, time, and situation. Appropriate and pleasant affect. Assessment and Plan of Care: Hypochloremic hyponatremia, secondary to dehydration and poor oral intake combined with diuretic use Hyponatremia, improved Hypochloremia, resolved -Continue to hold diuretic hydrochlorothiazide and continue with IV fluid hydration. -Patient tolerated clear liquid diet and reports feeling much better this morning, advance to regular diet at this time. -Telemetry monitoring -Fall precautions -Monitor vital signs -Continuous close monitoring with repeat a.m. labs Hypokalemia, resolved -We will continue to monitor with repeat a.m. labs. Hypertension -Monitor vital signs and continue daily medication regimen with losartan, however we will continue to hold hydrochlorothiazide at this time. BPH -Continue daily medication regimen with Flomax Chronic conditions: Coronary artery disease, hyperlipidemia, previous TIAs -Continue daily medication regimen with atorvastatin and losartan. CODE STATUS: Full code DVT prophylaxis: Heparin Discussed with: Patient and RN Anticipated discharge date: Clinical course to determine, possibly tomorrow if patient continues to improve Anticipated discharge place: Home A total of 38 minutes was spent on the care of this complex patient more than 50% of the time was spent in counseling and care coordination. I reviewed the documentation as provided by the LENCHO above, who is the original author of this note. I agree with the documented assessment and plan, with the following changes: none Objective - Vital Signs Vital signs: Vital Signs Temp 97.8 F 07/05/21 05:00 Pulse 59 L 07/05/21 05:00 Resp 20 07/05/21 05:00 BP 145/66 07/05/21 05:00 Pulse Ox 97 07/05/21 05:00 Intake & Output 07/04/21 07/05/21 07/05/21 18:59 06:59 18:59 Output Total 335 Balance -335 Weight 77.111 kg Output: Urine 335 Other: # Voids 1 - Labs CBC & Chem 7: 07/05/21 05:42 07/05/21 05:42 Labs: Abnormal Lab Results - Last 24 Hours (Table) 07/04/21 07/04/21 Range/Units 17:19 17:19 Sodium 126 L (137-145) mmol/L Potassium 3.3 L (3.5-5.1) mmol/L Chloride 96 L (98-107) mmol/L Carbon Dioxide 21 L (22-30) mmol/L BUN 21 H (9-20) mg/dL Calcium 7.7 L (8.4-10.2) mg/dL Total Protein 5.2 L (6.3-8.2) g/dL Albumin 2.7 L (3.5-5.0) g/dL Ur Specific [place] 1.037 H (1.001-1.035) Urine Blood Small H (Negative)
[2021-07-05 09:46] LABS: Anion Gap 10.9 mmol/L (10.00-18.00); BUN/Creat Ratio 16.45 Ratio (12.00-20.00); Blood Urea Nitrogen 13.8 mg/dL (9.0-27.0); Calcium 7.5 mg/dL (8.7-10.3); Non-African American GFR(CKD) 77.7 (60.0-200.0); Potassium 3.9 mmol/L (3.5-5.5)
[2021-07-05 09:48] LABS: HCT 34.8 % (39.6-50.0); HGB 11.8 g/dL (13.0-17.0); MCH 32.7 pg (27.0-32.0); MCHC 33.9 g/dL (32.0-37.0); MCV 96.4 fL (80.0-97.0); Mean Platelet Volume 9.3 fL (9.5-12.2); NRBC Per 100 WBC 0 /100 WBCS (0.0-0.0); Platelet Count 226 X 10*3/uL (140-440); RBC 3.61 X 10*6/uL (4.40-5.60); RDW 12.5 % (11.5-14.5); WBC 5.13 X 10*3/uL (4.50-10.00)
[2021-07-05] MEDS: SODIUM CHLORIDE 0.9% 1,000 ML IV SCH (15:41)
[2021-07-05] MEDS ORDERED: ATORVASTATIN 20 MG TAB PO SCH (21:00)
[2021-07-06] MEDS: HEPARIN SODIUM,PORCINE/PF 5,000 UNIT/0.5 ML SYRINGE SQ SCH ×2 (00:59→08:32)
[2021-07-06] MEDS: SODIUM CHLORIDE 0.9% 1,000 ML IV SCH (01:02)
[2021-07-06] MEDS: TAMSULOSIN 0.4 MG CAP.ER.24H PO SCH (08:32)
[2021-07-06] MEDS: PARoxetine 20 MG TAB PO SCH (08:32)
[2021-07-06] MEDS: LOSARTAN 50 MG TAB PO SCH (08:32)
[2021-07-06 08:44] VITALS: RESP 19; TEMP 99
[2021-07-06 09:14] LABS: HCT 34.2 % (39.6-50.0); HGB 11.4 g/dL (13.0-17.0); MCH 32.2 pg (27.0-32.0); MCHC 33.3 g/dL (32.0-37.0); MCV 96.6 fL (80.0-97.0); Mean Platelet Volume 9.6 fL (9.5-12.2); NRBC Per 100 WBC 0 /100 WBCS (0.0-0.0); Platelet Count 264 X 10*3/uL (140-440); RBC 3.54 X 10*6/uL (4.40-5.60); RDW 12.1 % (11.5-14.5); WBC 4.96 X 10*3/uL (4.50-10.00)
[2021-07-06 09:22] LABS: African American GFR (CKD) 88.9 (60.0-200.0); Albumin 2.6 g/dL (3.8-4.9); Albumin/Globulin Ratio 1.72 (1.60-3.17); Anion Gap 8.1 mmol/L (10.00-18.00); BUN/Creat Ratio 14.93 Ratio (12.00-20.00); Blood Urea Nitrogen 12.9 mg/dL (9.0-27.0); Calcium 7.8 mg/dL (8.7-10.3); Carbon Dioxide 23.9 mmol/L (20.0-27.5); Globulin 1.5 g/dL (1.6-3.3); Magnesium 2.1 mg/dL (1.5-2.4); Non-African American GFR(CKD) 76.7 (60.0-200.0); Potassium 4.4 mmol/L (3.5-5.5); Total Bilirubin 0.5 mg/dL (0.30-1.20); Total Protein 4.2 g/dL (6.2-8.2)
[2021-07-06 09:52] VITALS: BP 161/72; PULSE 61
--- NOTE | 2021-07-06 13:05 | P.DS ---
Providers Date of admission: 07/04/21 20:39 Expected date of discharge: 07/06/21 Attending physician: Torey Lyn MD Primary care physician: Al Delgado [facility] Hospital Course: Discharge Diagnosis: Hypochloremic hyponatremia, secondary to dehydration and poor oral intake combined with diuretic use Hyponatremia, improved Hypochloremia, resolved Hypokalemia, resolved Hypertension BPH Chronic conditions: Coronary artery disease, hyperlipidemia, previous TIAs Hospital Course: Patient is a very pleasant 89-year-old male with a past medical history of CAD status post [place] and stent placement in 2010, hypertension, hyperlipidemia, GERD, TIAs, and BPH. He presented to the emergency department with a chief complaint of loss of appetite and generally feeling unwell 1 week. In the emergency department patient was seen and fully evaluated. Labs obtained CBC unremarkable, CMP revealing hyponatremia with sodium of 126, hypochloremia with chloride of 96, hypokalemia with potassium of 3.8, and hypoalbuminemia with albumin of 2.7. CT abdomen and pelvis obtained and was negative for acute intra- abdominal abnormality, revealed subsegmental atelectasis at lung bases slightly increased compared to prior exam and emphysematous changes treating allusion of small cavitary nodules at the right lung base reported as stable when compared to prior examination. Urinalysis was negative for infection. Patient was given a 1 L bolus 0.9% normal saline and admitted under services for Hypochloremic hyponatremia secondary to dehydration and poor oral intake. Diuretic hydrochlorothiazide was discontinued. With gentle hydration and electrolyte replacement, Patient's electrolyte abnormalities resolved. Patient tolerating oral intake and reports feeling great this morning. Patient is medically stable for discharge at this time. Hydrochlorothiazide was discontinued as discussed with patient and patient to follow up outpatient with his PCP. Patient instructed to monitor blood pressures and to notify PCP if these begin to elevate as he may need additional antihypertensive coverage. Physical exam: Vital signs reviewed and stable. General: Nontoxic, no distress and appears stated age. Derm: Skin warm and dry, normal coloration for ethnicity. Head: Atraumatic, normocephalic and symmetric. Eyes: EOMs intact, no lid lag, and anicteric sclera Mouth: no lip lesions, mucus membranes dry Cardiovascular: regular rate and rhythm with normal S1S2, no murmur, positive posterior tibial pulses bilaterally, and cap refill < 2 seconds. Lungs: Respirations even, regular, and unlabored on room air. Lungs CTA bilaterally, no rhonchi, no rales, no wheezing, and no accessory muscle usage. Abdominal: soft, nontender to palpation, no guarding, no appreciable organomegaly Ext: ROM intact. No gross muscle atrophy, no edema, no contractures Neuro: Speech clear, face symmetrical and CN II-XII grossly intact with no noted focal neuro deficits Psych: Alert and oriented to person, place, time, and situation. Appropriate and pleasant affect. A total of 38 minutes of time were spent preparing this complex discharge summary. I reviewed the documentation as provided by the LENCHO above, who is the original author of this note. I agree with the documented assessment and plan, with the following changes: none Patient Condition at Discharge: Stable Plan - Discharge Summary New Discharge Prescriptions: New Losartan [Cozaar] 100 mg PO DAILY 30 Days #60 tab Continue Tamsulosin [Flomax] 0.4 mg PO DAILY PARoxetine [Paxil] 20 mg PO DAILY Omeprazole 20 mg PO DAILY metroNIDAZOLE 0.75% CREAM [Metrocream 0.75%] 1 applic TOPICAL BID PRN PRN Reason: face metroNIDAZOLE 1% GEL [Metrogel 1%] 1 applic TOPICAL BID PRN PRN Reason: face Clobetasol Propionate [Temovate 0.05% Cream] 1 applic TOPICAL BID PRN PRN Reason: Rash Atorvastatin [Lipitor] 20 mg PO HS Discontinued Losartan/Hydrochlorothiazide [Losartan-Hctz 100-25 mg Tab] 1 tab PO DAILY Doxycycline [Vibramycin] 50 mg PO BID Discharge Medication List PARoxetine [Paxil] 20 mg PO DAILY 07/21/14 [History] Tamsulosin [Flomax] 0.4 mg PO DAILY 07/21/14 [History] Omeprazole 20 mg PO DAILY 01/11/21 [History] Atorvastatin [Lipitor] 20 mg PO HS 07/04/21 [History] Clobetasol Propionate [Temovate 0.05% Cream] 1 applic TOPICAL BID PRN 07/04/21 [History] metroNIDAZOLE 0.75% CREAM [Metrocream 0.75%] 1 applic TOPICAL BID PRN 07/04/21 [History] metroNIDAZOLE 1% GEL [Metrogel 1%] 1 applic TOPICAL BID PRN 07/04/21 [History] Losartan [Cozaar] 100 mg PO DAILY 30 Days #60 tab 07/06/21 [Rx] Follow up Appointment(s)/Referral(s): Al An MD [Primary Care Provider] - 07/12/21 1:00 pm Activity/Diet/Wound Care/Special Instructions: Activity: As tolerated. Take breaks as needed. Diet: Heart healthy and carb consistent diet. Avoid salts, or foods with hidden salts such as canned or boxed foods and frozen dinners. Extra salt makes your heart work harder and traps the fluid in your body for longer. Special Instructions: Take all of your medications as directed and remember to keep all of your doctor's appointments and follow-up as needed. Thank you for allowing us to participate in your care, it was truly a pleasure having you for our patient!!! Discharge Disposition: HOME SELF-CARE
== END 2021-07-06 14:49 | disposition home or self-care (01) | DRG 641 ==
LOC: EC 15:56 → 5NMEDONC 20:39
PROVIDERS: ADMIT Internal Medicine; ATTEND Internal Medicine
DX: E87.1 Hypo-osmolality and hyponatremia (principal); J98.11 Atelectasis; I11.0 Hypertensive heart disease with heart failure; I50.9 Heart failure, unspecified; E86.0 Dehydration; E83.51 Hypocalcemia; E87.6 Hypokalemia; T50.2X5A Adverse effect of carbonic-anhydrase inhibitors, benzothiadiazides and other diuretics, initial encounter; I25.10 Atherosclerotic heart disease of native coronary artery without angina pectoris; E86.1 Hypovolemia; E87.8 Other disorders of electrolyte and fluid balance, not elsewhere classified; E88.09 Other disorders of plasma-protein metabolism, not elsewhere classified; N40.0 Benign prostatic hyperplasia without lower urinary tract symptoms; E78.5 Hyperlipidemia, unspecified; X58.XXXA Exposure to other specified factors, initial encounter; M19.90 Unspecified osteoarthritis, unspecified site; I25.2 Old myocardial infarction; Z95.5 Presence of coronary angioplasty implant and graft; Z98.42 Cataract extraction status, left eye; Z98.41 Cataract extraction status, right eye; Z88.8 Allergy status to other drugs, medicaments and biological substances; Z91.030 Bee allergy status; Z88.5 Allergy status to narcotic agent; Z91.010 Allergy to peanuts; Z79.899 Other long term (current) drug therapy; Z86.73 Personal history of transient ischemic attack (TIA), and cerebral infarction without residual deficits; Z87.891 Personal history of nicotine dependence; Z82.49 Family history of ischemic heart disease and other diseases of the circulatory system; Z86.718 Personal history of other venous thrombosis and embolism
CPT/HCPCS: 36415; 74177; 80048; 80053; 81001; 82150; 83605; 83690; 83735; 85025; 85027; 96361; 96374; 96375; 99285

== ENCOUNTER → 2021-12-25 | Outpatient (CLI) | payer MEDICARE ==
[2021-12-25 18:01] LABS: Basophils # (A) 0.04 X 10*3/uL (0.00-0.10); Basophils % (A) 0.6 %; Eosinophils # (A) 0.43 X 10*3/uL (0.04-0.35); HCT 27.3 % (39.6-50.0); HGB 8.7 g/dL (13.0-17.0); Immature Grans, Automated 0.8 %; Lymphocytes # (A) 0.64 X 10*3/uL (0.90-5.00); Lymphocytes % (A) 10.4 %; MCH 25.4 pg (27.0-32.0); MCHC 31.9 g/dL (32.0-37.0); MCV 79.8 fL (80.0-97.0); Mean Platelet Volume 8.8 fL (9.5-12.2); Monocytes % (A) 16.2 %; NRBC Per 100 WBC 0 /100 WBCS (0.0-0.0); Neutrophils # (A) 4.01 X 10*3/uL (1.80-7.70); Platelet Count 380 X 10*3/uL (140-440); RBC 3.42 X 10*6/uL (4.40-5.60); WBC 6.17 X 10*3/uL (4.50-10.00)
[2021-12-25 18:39] LABS: % Iron Saturation 4.31 (15.00-50.00); African American GFR (CKD) 77.8 (60.0-200.0); Albumin/Globulin Ratio 1.43 (1.60-3.17); Anion Gap 10.5 mmol/L (10.00-18.00); BUN/Creat Ratio 16.13 Ratio (12.00-20.00); C Reactive Protein 4.7 mg/dL (0.00-0.80); Calcium 8.2 mg/dL (8.7-10.3); Carbon Dioxide 22.8 mmol/L (20.0-27.5); Ferritin 55.1 ng/mL (22.0-322.0); Globulin 2.1 g/dL (1.6-3.3); Non-African American GFR(CKD) 67.1 (60.0-200.0); Potassium 5.3 mmol/L (3.5-5.5); T4, Free (Free Thyroxine) 1.34 ng/dL (0.800-1.800); Total Bilirubin 0.6 mg/dL (0.30-1.20); Total Protein 5.1 g/dL (6.2-8.2)
[2021-12-25 19:04] LABS: Erythrocyte Sedimentation Rate 33 mm/Hr (0-20)
== END | disposition home or self-care (01) ==
LOC: LABWHC1 14:15
PROVIDERS: ATTEND Family Medicine
DX: R53.83 Other fatigue (principal); R06.00 Dyspnea, unspecified
CPT/HCPCS: 36415; 80053; 82306; 82607; 82728; 82746; 83540; 83550; 83880; 84439; 84443; 85025; 85652; 86140

== ENCOUNTER 2021-12-26 18:43 | Inpatient (IN) | payer MEDICARE ==
[2021-12-26] MEDS ORDERED: SODIUM CHLORIDE 0.9% 1,000 ML IV STA (20:20)
[2021-12-26 20:44] LABS: Basophils # (A) 0.1 k/uL (0-0.2); Basophils % (A) 1 %; Eosinophils # (A) 0.5 k/uL (0-0.7); Eosinophils % (A) 7 %; HCT 29.1 % (39.0-53.0); HGB 9.2 gm/dL (13.0-17.5); Hypochromasia Slight; Lymphocytes # (A) 0.6 k/uL (1.0-4.8); Lymphocytes % (A) 9 %; MCH 25.4 pg (25.0-35.0); MCHC 31.5 g/dL (31.0-37.0); MCV 80.7 fL (80.0-100.0); Mean Platelet Volume 6.8; Monocytes # (A) 0.6 k/uL (0-1.0); Monocytes % (A) 9 %; Neutrophils # (A) 5.3 k/uL (1.3-7.7); Neutrophils % (A) 73 %; Platelet Count 397 k/uL (150-450); RBC 3.61 m/uL (4.30-5.90); RDW 15.8 % (11.5-15.5); WBC 7.3 k/uL (3.8-10.6)
[2021-12-26 20:54] LABS: Albumin 2.8 g/dL (3.5-5.0); Calcium 7.8 mg/dL (8.4-10.2); Magnesium 1.6 mg/dL (1.6-2.3); Potassium 4.3 mmol/L (3.5-5.1); Total Bilirubin 0.8 mg/dL (0.2-1.3); Total Protein 5.1 g/dL (6.3-8.2)
[2021-12-26 21:02] LABS: Partial Thromboplastin Time 24.5 sec (22.0-30.0); Prothrombin Time 10.9 sec (9.0-12.0)
--- NOTE | 2021-12-26 21:30 | XR ---
EXAMINATION TYPE: XR chest 2V DATE OF EXAM: 12/26/2021 9:01 PM COMPARISON: Chest radiographs from 01/11/2021 TECHNIQUE: XR chest 2V Frontal and lateral views of the chest. CLINICAL INDICATION:Male, 89 years old with history of Weakness; FINDINGS: Lungs/Pleura: Low lung volumes are present. There is no evidence of pleural effusion, focal consolida tion, or pneumothorax. Pulmonary vascularity: Mild pulmonary vascular congestion. Heart/mediastinum: Cardiomediastinal silhouette is enlarged and stable. Musculoskeletal: No acute osseous pathology. IMPRESSION: Cardiomegaly and mild pulmonary vascular congestion suggested. Correlate with BNP for congestive hear t failure.
[2021-12-26] MEDS ORDERED: NALOXONE 0.4 MG/ML 1 ML VIAL IV PRN (21:44)
--- NOTE | 2021-12-26 21:44 | ED ---
General Adult HPI - General Chief complaint: Weakness Stated complaint: Abnormal Labs,PCP sent Time Seen by Provider: 12/26/21 20:02 Source: family, RN notes reviewed, old records reviewed Mode of arrival: wheelchair Limitations: no limitations - History of Present Illness Initial comments: Patient is an 89-year-old male with past medical history remarkable for CAD, cardiac stents, heart failure, hypertension who presents emergency Department complaining of generalized weakness and fatigue for the last 2 weeks. Endorses generalized fatigue, worse with exertion. Denies chest pain, abdominal pain, nausea, vomiting. Denies any hematemesis, hematochezia, melena. Denies any urinary complaints. To follow up with his PCP, where blood work was done and was found to be acutely anemic. Was instructed to come here today for further evaluation. He has no obvious source of bleeding. No history of anemia as far as the patient knows. Has no other acute complaints at this time. Denies orthopnea. Denies PND. Denies worsening lower extremity edema. No other acute complaints at this time. Since for further evaluation. Denies fevers, chills, cough. - Related Data Home Medications Medication Instructions Recorded Confirmed PARoxetine [Paxil] 20 mg PO DAILY 07/21/14 12/26/21 Tamsulosin [Flomax] 0.4 mg PO DAILY 07/21/14 12/26/21 Omeprazole 20 mg PO DAILY 01/11/21 12/26/21 Atorvastatin [Lipitor] 10 mg PO HS 07/04/21 12/26/21 Clobetasol Propionate [Temovate 1 applic TOPICAL BID 07/04/21 12/26/21 0.05% Cream] Aspirin EC [Ecotrin Low Dose] 81 mg PO DAILY 12/26/21 12/26/21 Cholecalciferol [Vitamin D3 (25 25 mcg PO DAILY 12/26/21 12/26/21 Mcg = 1000 Iu)] Doxycycline Hyclate 100 mg PO DIRECTED 12/26/21 12/26/21 Losartan/Hydrochlorothiazide 1 tab PO DAILY 12/26/21 12/26/21 [Losartan-Hctz 100-25 mg Tab] Magnesium Oxide [Magnesium] 500 mg PO BID 12/26/21 12/26/21 Allergies Allergy/AdvReac Type Severity Reaction Status Date / Time peanut Allergy Rash/Hives Verified 12/26/21 22:12 dutasteride [From Avodart] AdvReac Rapid Verified 12/26/21 22:12 Heart Rate morphine AdvReac PASS OUT Verified 12/26/21 22:12 venom-honey bee AdvReac PASS OUT Verified 12/26/21 22:12 [bee venom (honey bee)] Review of Systems ROS Statement: Those systems with pertinent positive or pertinent negative responses have been documented in the HPI. Review of Systems: CONST: Denies fever EYES: Denies blurry vision ENT: Denies nasal congestion C/V: Denies Chest pain RESP: Denies shortness of breath GI: Denies abdominal pain : Denies dysuria SKIN: Denies rash. MSK: Denies joint pain. NEURO: Endorses fatigue ROS Other: All systems not noted in ROS Statement are negative. 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 states SD and stent placement 2010. Last Myocardial Infarction Date:: 2010 History of Any Multi-Drug Resistant Organisms: None Reported Past Surgical History: Ear Surgery, Heart Catheterization With Stent, Joint Rep lacement, Orthopedic Surgery Additional Past Surgical History / Comment(s): Lt knee, Rt knee, cataract removal Past Anesthesia/Blood Transfusion Reactions: No Reported Reaction Date of Last Stent Placement:: 2010 Past Psychological History: No Psychological Hx Reported Smoking Status: Former smoker Past Alcohol Use History: None Reported Past Drug Use History: None Reported - Past Family History Son(s) Family Medical History: Coronary Artery Disease (CAD) Additional Family Medical History / Comment(s): son from heart disease, was born with heart defect. General Exam - General Exam Comments Initial Comments: General: Appears in no acute distress. HEAD: Normal with no signs of head trauma. EYES: PERRLA, EOMI, conjunctiva normal, no discharge. ENT: Hearing grossly intact, normal oropharynx. RESPIRATORY: Clear breath sounds bilaterally. No wheezes, rales, or rhonchi. C/V: Regular rate and rhythm. S1 and S2 auscultated, no edema, peripheral p ulses 2+ and intact throughout ABD: Abd is soft, nontender, nondistended. Rectal exam performed in the presence of a staff member. No gross blood. Nonbleeding hemorrhoid. Good rectal tone. Occult blood sent. EXT: Normal range of motion, no obvious deformity SKIN: No rashes or lesions observed on exposed skin. NEURO: Alert and oriented x 4. Cranial nerves II-XII intact. No focal sensory or strength deficits. Limitations: no limitations Course Vital Signs 12/26/21 12/26/21 12/26/21 19:39 20:47 20:50 Temperature 98.8 F Pulse Rate 83 68 74 Respiratory 18 16 18 Rate Blood Pressure 173/81 O2 Sat by Pulse 98 Oximetry 12/26/21 12/26/21 12/26/21 21:02 21:10 21:20 Temperature Pulse Rate 69 71 72 Respiratory 15 15 17 Rate Blood Pressure O2 Sat by Pulse Oximetry 12/26/21 12/26/21 12/26/21 21:30 21:34 21:40 Temperature Pulse Rate 67 71 62 Respiratory 16 20 19 Rate Blood Pressure 99/79 99/79 176/89 O2 Sat by Pulse 99 99 99 Oximetry 12/26/21 12/26/21 12/26/21 21:50 22:00 22:10 Temperature Pulse Rate 64 73 71 Respiratory 17 22 18 Rate Blood Pressure 176/89 176/89 O2 Sat by Pulse 99 98 100 Oximetry 12/26/21 12/26/21 12/26/21 22:20 22:30 22:40 Temperature Pulse Rate 67 64 62 Respiratory 21 17 19 Rate Blood Pressure O2 Sat by Pulse 100 98 96 Oximetry 12/26/21 22:52 Temperature 98.7 F Pulse Rate 64 Respiratory 18 Rate Blood Pressure 177/85 O2 Sat by Pulse 98 Oximetry Medical Decision Making - Medical Decision Making Based on the patient's presentation and physical exam, I'm concerned for possible anemia for the patient. Blood work can be seen from his outpatient visit and shows a hemoglobin of 8.7, which is decreased from prior values. In June, hemoglobin was 11.4. It is a microcytic anemia borderline with a MCV of 79. I discussed with him I would like to repeat laboratory testing. We will send an occult blood. We'll also do cardiac workup. He was in agreement with this plan. Vital signs are within normal limits. EKG shows no signs of acute ischemia. Chest x-ray reveals no acute cardio pulmonary process. Laboratory studies are remarkable for an indeterminate troponin of 0.013. BNP is within normal limits for his age. Occult blood is negative. Patient is dehydrated with a hyponatremia of 123 and hypochloremia of 92. Patient has a borderline microcytic anemia with MCV of 80, hemoglobin of 9.2. After the patient on the findings of this workup. Due to the suspicion for dehydration, hyponatremia, as well as his somewhat decreased hemoglobin I did offer him overnight admission and observation to monitor for worsening hemoglobin drop. He was in agreement this plan. He does not require transfusion at this time. We'll continue to monitor. Does not appear to be having an active GI bleed with the negative rectal exam. He was in agreement this plan. I spoke the admitting physician, Dr. Wheat who accepted the patient. - Lab Data Result diagrams: 12/26/21 20:30 12/26/21 20:30 Lab Results 12/26/21 12/26/21 12/26/21 Range/Units 20:30 20:30 20:30 WBC 7.3 (3.8-10.6) k/uL RBC 3.61 L (4.30-5.90) m/uL Hgb 9.2 L (13.0-17.5) gm/dL Hct 29.1 L (39.0-53.0) % MCV 80.7 (80.0-100.0) fL MCH 25.4 (25.0-35.0) pg MCHC 31.5 (31.0-37.0) g/dL RDW 15.8 H (11.5-15.5) % Plt Count 397 (150-450) k/uL MPV 6.8 Neutrophils % 73 % Lymphocytes % 9 % Monocytes % 9 % Eosinophils % 7 % Basophils % 1 % Neutrophils # 5.3 (1.3-7.7) k/uL Lymphocytes # 0.6 L (1.0-4.8) k/uL Monocytes # 0.6 (0-1.0) k/uL Eosinophils # 0.5 (0-0.7) k/uL Basophils # 0.1 (0-0.2) k/uL Hypochromasia Slight PT 10.9 (9.0-12.0) sec INR 1.0 (<1.2) APTT 24.5 (22.0-30.0) sec Sodium (137-145) mmol/L Potassium (3.5-5.1) mmol/L Chloride (98-107) mmol/L Carbon Dioxide (22-30) mmol/L Anion Gap mmol/L BUN (9-20) mg/dL Creatinine (0.66-1.25) mg/dL Est GFR (CKD-EPI)AfAm (>60 ml/min/1.73 sqM) Est GFR (CKD-EPI)NonAf (>60 ml/min/1.73 sqM) Glucose (74-99) mg/dL Plasma Lactic Acid Daniel (0.7-2.0) mmol/L Calcium (8.4-10.2) mg/dL Magnesium (1.6-2.3) mg/dL Total Bilirubin (0.2-1.3) mg/dL AST (17-59) U/L ALT (4-49) U/L Alkaline Phosphatase (38-126) U/L Troponin I (0.000-0.034) ng/mL NT-Pro-B Natriuret Pep pg/mL Total Protein (6.3-8.2) g/dL Albumin (3.5-5.0) g/dL Stool Occult Blood Negative (Negative) Blood Type Blood Type Confirm Blood Type Recheck Bld Type Recheck Status Antibody Screen Spec Expiration Date 12/26/21 12/26/21 12/26/21 Range/Units 20:30 20:30 20:30 WBC (3.8-10.6) k/uL RBC (4.30-5.90) m/uL Hgb (13.0-17.5) gm/dL Hct (39.0-53.0) % MCV (80.0-100.0) fL MCH (25.0-35.0) pg MCHC (31.0-37.0) g/dL RDW (11.5-15.5) % Plt Count (150-450) k/uL MPV Neutrophils % % Lymphocytes % % Monocytes % % Eosinophils % % Basophils % % Neutrophils # (1.3-7.7) k/uL Lymphocytes # (1.0-4.8) k/uL Monocytes # (0-1.0) k/uL Eosinophils # (0-0.7) k/uL Basophils # (0-0.2) k/uL Hypochromasia PT (9.0-12.0) sec INR (<1.2) APTT (22.0-30.0) sec Sodium 123 L (137-145) mmol/L Potassium 4.3 (3.5-5.1) mmol/L Chloride 92 L (98-107) mmol/L Carbon Dioxide 21 L (22-30) mmol/L Anion Gap 10 mmol/L BUN 16 (9-20) mg/dL Creatinine 0.84 (0.66-1.25) mg/dL Est GFR (CKD-EPI)AfAm 90 (>60 ml/min/1.73 sqM) Est GFR (CKD-EPI)NonAf 78 (>60 ml/min/1.73 sqM) Glucose 109 H (74-99) mg/dL Plasma Lactic Acid Daniel 1.1 (0.7-2.0) mmol/L Calcium 7.8 L (8.4-10.2) mg/dL Magnesium 1.6 (1.6-2.3) mg/dL Total Bilirubin 0.8 (0.2-1.3) mg/dL AST 34 (17-59) U/L ALT 34 (4-49) U/L Alkaline Phosphatase 104 (38-126) U/L Troponin I 0.013 (0.000-0.034) ng/mL NT-Pro-B Natriuret Pep pg/mL Total Protein 5.1 L (6.3-8.2) g/dL Albumin 2.8 L (3.5-5.0) g/dL Stool Occult Blood (Negative) Blood Type Blood Type Confirm Blood Type Recheck Bld Type Recheck Status Antibody Screen Spec Expiration Date 12/26/21 12/26/21 12/26/21 Range/Units 20:30 20:30 20:41 WBC (3.8-10.6) k/uL RBC (4.30-5.90) m/uL Hgb (13.0-17.5) gm/dL Hct (39.0-53.0) % MCV (80.0-100.0) fL MCH (25.0-35.0) pg MCHC (31.0-37.0) g/dL RDW (11.5-15.5) % Plt Count (150-450) k/uL MPV Neutrophils % % Lymphocytes % % Monocytes % % Eosinophils % % Basophils % % Neutrophils # (1.3-7.7) k/uL Lymphocytes # (1.0-4.8) k/uL Monocytes # (0-1.0) k/uL Eosinophils # (0-0.7) k/uL Basophils # (0-0.2) k/uL Hypochromasia PT (9.0-12.0) sec INR (<1.2) APTT (22.0-30.0) sec Sodium (137-145) mmol/L Potassium (3.5-5.1) mmol/L Chloride (98-107) mmol/L Carbon Dioxide (22-30) mmol/L Anion Gap mmol/L BUN (9-20) mg/dL Creatinine (0.66-1.25) mg/dL Est GFR (CKD-EPI)AfAm (>60 ml/min/1.73 sqM) Est GFR (CKD-EPI)NonAf (>60 ml/min/1.73 sqM) Glucose (74-99) mg/dL Plasma Lactic Acid Daniel (0.7-2.0) mmol/L Calcium (8.4-10.2) mg/dL Magnesium (1.6-2.3) mg/dL Total Bilirubin (0.2-1.3) mg/dL AST (17-59) U/L ALT (4-49) U/L Alkaline Phosphatase (38-126) U/L Troponin I (0.000-0.034) ng/mL NT-Pro-B Natriuret Pep 813 pg/mL Total Protein (6.3-8.2) g/dL Albumin (3.5-5.0) g/dL Stool Occult Blood (Negative) Blood Type A Positive Blood Type Confirm A Positive Blood Type Recheck No Previous Record Bld Type Recheck Status CABO Indicated Antibody Screen NEGATIVE Spec Expiration Date 12/29/20212329 - EKG Data -: EKG Interpreted by Me EKG Comments: 12-lead Electrocardiogram Interpretation Note EKG was reviewed and interpreted by myself. 12-lead ECG performed at 2038 is interpreted by me as revealing normal sinus rhythm with first-degree AV block at a rate of at 74 beats per minute. Bailey is leftward deviated. VT interval is prolonged at 230 ms. QRS duration is 138 ms, QTc is 422 ms.. There were no ST or T wave abnormalities to suggest myocardial ischemia or injury. R wave progression across the precordium was satisfactory. By my interpretation this EKG is non-diagnostic for acute ischemia. Disposition Clinical Impression: Dehydration, Symptomatic anemia Disposition: ADMITTED IP TO THIS HOSP Condition: Stable Time of Disposition: 21:30
[2021-12-26] MEDS: SODIUM CHLORIDE 0.9% 1,000 ML IV SCH (22:13)
[2021-12-27 03:47] LABS: Basophils % (A) 0 %; Eosinophils # (A) 0.5 k/uL (0-0.7); Eosinophils % (A) 11 %; HCT 25.3 % (39.0-53.0); HGB 7.9 gm/dL (13.0-17.5); Hypochromasia Moderate; Lymphocytes # (A) 0.7 k/uL (1.0-4.8); Lymphocytes % (A) 14 %; MCH 25.4 pg (25.0-35.0); MCHC 31.2 g/dL (31.0-37.0); MCV 81.4 fL (80.0-100.0); Monocytes # (A) 0.6 k/uL (0-1.0); Monocytes % (A) 12 %; Neutrophils # (A) 2.9 k/uL (1.3-7.7); Neutrophils % (A) 59 %; Platelet Count 322 k/uL (150-450); RBC 3.11 m/uL (4.30-5.90); RDW 15.7 % (11.5-15.5); WBC 4.8 k/uL (3.8-10.6)
[2021-12-27 04:00] LABS: African American GFR (CKD) >90 (>60 ml/min/1.73 sqM); Anion Gap 8 mmol/L; Blood Urea Nitrogen 13 mg/dL (9-20); Calcium 7.4 mg/dL (8.4-10.2); Carbon Dioxide 20 mmol/L (22-30); Chloride 95 mmol/L (98-107); Glucose 90 mg/dL (74-99); Non-African American GFR(CKD) 80 (>60 ml/min/1.73 sqM); Potassium 3.9 mmol/L (3.5-5.1); Sodium 123 mmol/L (137-145)
[2021-12-27] MEDS ORDERED: cloNIDine HCL 0.2 MG TAB PO PRN (04:12)
--- NOTE | 2021-12-27 04:17 | P.HPIM ---
History of Present Illness H&P Date: 12/26/21 Chief Complaint: Exertional this dyspnea 89-year-old male with hypertension hyperlipidemia history of, CAD status post stents Patient coming in today upon recommendations of his doctor due to anemia to rule out GI bleeding. He's been complaining of progressive generalized weakness with exertional dyspnea over the past 2 weeks he denies any orthopnea denies any paroxysmal nocturnal dyspnea denies any leg swelling. Denies any chest pain or trouble breathing when resting. He denies any coughing upper respiratory infection symptoms denies any fevers chills nausea vomiting or abdominal pain. Patient also denies any GI bleeding or melena. He denies any history of anemia in the past, he denies any abnormal colonoscopies in the past. He went to his primary care doctor couple days ago some blood work done and he was found to be anemic upon which his doctor recommended that he comes to the hospital for evaluation again he is not on any blood thinners and denies any GI bleeding. In the ED led work showed hyponatremia and anemia. Occult blood test in the stool was negative Patient was also found to be hypertensive while in the ED he admits to not taking his blood pressure medications for couple days now Review of Systems Pertinent positives as noted in HPI. All other systems were reviewed and are negative Past Medical History Past Medical History: Coronary Artery Disease (CAD), Heart Failure, CVA/TIA, Deep Vein Thrombosis (DVT), Hyperlipidemia, Hypertension, Myocardial Infarction (NH), Osteoarthritis (OA) Additional Past Medical History / Comment(s): states multiple small stroke, htn, 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 states NH and stent placement 2010. Last Myocardial Infarction Date:: 2010 History of Any Multi-Drug Resistant Organisms: None Reported Past Surgical History: Ear Surgery, Heart Catheterization With Stent, Joint Replacement, Orthopedic Surgery Additional Past Surgical History / Comment(s): Lt knee, Rt knee, cataract removal, back operation 4-5 years ago. Past Anesthesia/Blood Transfusion Reactions: No Reported Reaction Date of Last Stent Placement:: 2010 Past Psychological History: No Psychological Hx Reported Additional Psychological History / Comment(s): Per pt. in the 1969's went to a psychiatrist/therapist for a short peroid of time. Smoking Status: Former smoker Past Alcohol Use History: None Reported Past Drug Use History: None Reported Additional Drug Use History / Comment(s): quit smoking when he was 27. - Past Family History Son(s) Family Medical History: Coronary Artery Disease (CAD) Additional Family Medical History / Comment(s): son from heart disease, was born with heart defect. Medications and Allergies Home Medications Medication Instructions Recorded Confirmed Type PARoxetine [Paxil] 20 mg PO DAILY 07/21/14 12/26/21 History Tamsulosin [Flomax] 0.4 mg PO DAILY 07/21/14 12/26/21 History Omeprazole 20 mg PO DAILY 01/11/21 12/26/21 History Atorvastatin [Lipitor] 10 mg PO HS 07/04/21 12/26/21 History Clobetasol Propionate [Temovate 1 applic TOPICAL BID 07/04/21 12/26/21 History 0.05% Cream] Aspirin EC [Ecotrin Low Dose] 81 mg PO DAILY 12/26/21 12/26/21 History Cholecalciferol [Vitamin D3 (25 25 mcg PO DAILY 12/26/21 12/26/21 History Mcg = 1000 Iu)] Doxycycline Hyclate 100 mg PO DIRECTED 12/26/21 12/26/21 History Losartan/Hydrochlorothiazide 1 tab PO DAILY 12/26/21 12/26/21 History [Losartan-Hctz 100-25 mg Tab] Magnesium Oxide [Magnesium] 500 mg PO BID 12/26/21 12/26/21 History Allergies Allergy/AdvReac Type Severity Reaction Status Date / Time peanut Allergy Rash/Hives Verified 12/26/21 22:12 dutasteride [From Avodart] AdvReac Rapid Verified 12/26/21 22:12 Heart Rate morphine AdvReac PASS OUT Verified 12/26/21 22:12 venom-honey bee AdvReac PASS OUT Verified 12/26/21 22:12 [bee venom (honey bee)] Physical Exam Vitals: Vital Signs Temp Pulse Pulse Resp BP BP Pulse Ox 12/27/21 00:08 98.2 F 60 20 177/73 97 12/26/21 22:52 98.7 F 64 18 177/85 98 12/26/21 22:40 62 19 96 12/26/21 22:30 64 17 98 12/26/21 22:20 67 21 100 12/26/21 22:10 71 18 100 12/26/21 22:00 73 22 176/89 98 09/20/22 21:50 64 17 176/89 99 12/26/21 21:40 62 19 176/89 99 12/26/21 21:34 71 20 99/79 99 12/26/21 21:30 67 16 99/79 99 12/26/21 21:20 72 17 12/26/21 21:10 71 15 12/26/21 21:02 69 15 12/26/21 20:50 74 18 12/26/21 20:47 68 16 12/26/21 19:39 98.8 F 83 18 173/81 98 Intake and Output 12/26/21 12/26/21 12/27/21 14:59 22:59 06:59 Other: Voiding Method Toilet Urinal Weight 79.379 kg 79.379 kg Constitutional: No acute distress, conversant, pleasant, patient is doing some lip smacking throughout the interview he denies having any similar issues in the past his daughter at bedside confirmed that he claimed that he is thirsty however despite giving him some water he continued to do the lips smacking Eyes: Anicteric sclerae, moist conjunctiva, Pupils equal round reactive to light ENMT: NC/AT Oropharynx clear, no erythema, or exudates Neck: Supple, no masses, or JVD No carotid bruits No thyromegaly Lungs: Clear to auscultation Clear to percussion Normal respiratory effort, no accessory muscle use Cardiovascular: Heart regular in rate and rhythm, No murmurs, gallops, or rubs No peripheral edema Abdominal: Soft Nontender, no guarding, rebound or rigidity Abdomen moving with respiration Normoactive bowel sounds No hepatomegaly, No splenomegaly No palpable mass No abdominal wall hernia noted Skin: Normal temperature, tone, texture, turgor No induration No subcutaneous nodules No rash, lesions No ulcers Extremities: No digital cyanosis No clubbing Pedal pulses intact and symmetrical Radial pulses intact and symmetrical No calf tenderness Psychiatric: Alert and oriented to person, place and time Appropriate affect fair judgement Neuro Muscles Strength 5/5 in all 4 extremities Sensation to light touch grossly present throughout Cranial nerves II-XII grossly intact No focal sensory deficits Lymphatics: no palpable cervical or supraclavicular , or inguinal lymph nodes Results CBC & Chem 7: 12/26/21 20:30 12/27/21 03:30 Labs: Abnormal Lab Results - Last 24 Hours (Table) 12/26/21 12/26/21 12/27/21 Range/Units 20:30 20:30 03:30 RBC 3.61 L (4.30-5.90) m/uL Hgb 9.2 L (13.0-17.5) gm/dL Hct 29.1 L (39.0-53.0) % RDW 15.8 H (11.5-15.5) % Lymphocytes # 0.6 L (1.0-4.8) k/uL Sodium 123 L 123 L (137-145) mmol/L Chloride 92 L 95 L (98-107) mmol/L Carbon Dioxide 21 L 20 L (22-30) mmol/L Glucose 109 H (74-99) mg/dL Calcium 7.8 L 7.4 L (8.4-10.2) mg/dL Total Protein 5.1 L (6.3-8.2) g/dL Albumin 2.8 L (3.5-5.0) g/dL Thrombosis Risk Factor Assmnt - Choose All That Apply Each Factor Represents 1 point: Obesity (BMI >25) Each Risk Factor Represents 3 Points: Age 75 years or older, History of DVT/PE Thrombosis Risk Factor Assessment Total Risk Factor Score: 7 Thrombosis Risk Factor Assessment Level: High Risk Assessment and Plan Assessment: Symptomatic Acute anemia, unknown underlying cause No evidence of GI bleeding Hematology consult Check echocardiogram for exertional dyspnea Fecal occult blood test negative Most recent colonoscopy over 10 years ago Persistent cough since Covid infection 6 months ago Patient reports postnasal drip Consider outpatient follow-up with ENT Poorly controlled hypertension secondary to noncompliance with medications at home Resume home blood pressure medications losartan hydrochlorothiazide Clonidine when necessary for systolic above 180 Hyponatremia Gentle IV fluid hydration with normal saline Monitor renal function and sodium level Chronic conditions Current artery disease status post stents TIA Hyperlipidemia BPH continue Flomax DVT prophylaxis mechanical Full code
[2021-12-27 06:21] LABS: Appearance,Urine Clear (Clear); Bacteria,Urine Rare /hpf; Bilirubin,Urine Negative (Negative); Blood,Urine Negative (Negative); Color,Urine Yellow; Glucose,Urine (UA) Negative (Negative); Ketones,Urine Negative (Negative); Leukocyte Esterase,Urine Trace (Negative); Mucus,Urine Rare /hpf; Nitrite,Urine Negative (Negative); PH, Urine 6.5 (5.0-8.0); Protein,Urine Trace (Negative); RBC,Urine 1 /hpf (0-5); Specific Gravity,Urine 1.011 (1.001-1.035); Squamous Epithelial Cell,Urine <1 /hpf (0-4); WBC,Urine 2 /hpf (0-5)
[2021-12-27] MEDS ORDERED: hydroCHLOROthiazide 25 MG TAB PO SCH (09:00)
[2021-12-27 10:28] LABS: Basophils % (A) 1 %; Eosinophils # (A) 0.6 k/uL (0-0.7); Eosinophils % (A) 10 %; HCT 28.2 % (39.0-53.0); HGB 8.5 gm/dL (13.0-17.5); Hypochromasia Marked; Lymphocytes # (A) 0.7 k/uL (1.0-4.8); Lymphocytes % (A) 12 %; MCH 24.9 pg (25.0-35.0); MCHC 30.2 g/dL (31.0-37.0); MCV 82.6 fL (80.0-100.0); Mean Platelet Volume 7.7; Monocytes # (A) 0.7 k/uL (0-1.0); Monocytes % (A) 12 %; Neutrophils # (A) 3.6 k/uL (1.3-7.7); Neutrophils % (A) 64 %; Platelet Count 402 k/uL (150-450); RBC 3.42 m/uL (4.30-5.90); WBC 5.6 k/uL (3.8-10.6)
[2021-12-27 10:43] LABS: Reticulocyte % 2.8 % (0.5-2.0)
[2021-12-27] MEDS: LOSARTAN 50 MG TAB PO SCH (10:57)
[2021-12-27] MEDS: PARoxetine 20 MG TAB PO SCH (10:57)
[2021-12-27 10:58] LABS: African American GFR (CKD) 91.5 (60.0-200.0); Anion Gap 8.1 mmol/L (10.00-18.00); BUN/Creat Ratio 14.62 Ratio (12.00-20.00); Blood Urea Nitrogen 11.8 mg/dL (9.0-27.0); Calcium 7.8 mg/dL (8.7-10.3); Carbon Dioxide 22.7 mmol/L (20.0-27.5); Non-African American GFR(CKD) 78.9 (60.0-200.0); Potassium 4.3 mmol/L (3.5-5.5)
[2021-12-27] MEDS: PANTOPRAZOLE 40 MG TABLET PO SCH (10:58)
[2021-12-27] MEDS: MAGNESIUM OXIDE 400 MG TAB PO SCH ×2 (10:58→21:00)
[2021-12-27] MEDS: TAMSULOSIN 0.4 MG CAP.ER.24H PO SCH (10:58)
[2021-12-27] MEDS: ASPIRIN 81 MG PO SCH (10:59)
--- NOTE | 2021-12-27 11:04 | CA ---
Transthoracic Echo Report Name: Stan Duggan Age: 89 Gender: M : 1930 Exam Date: 12/27/2021 07:42 Exam Location: [facility] Ht (in): 68 Wt (lb): 175 Ordering Physician: Richard Wheat MD Attending/Referring Phys: [id number], [facility] Pathologist Natividad Rodriguez RDCS Procedure CPT: Indications: exertional dyspnea Cardiac Hx: Technical Quality: Contrast 1: Total Dose (mL): Contrast 2: Total Dose (mL): MEASUREMENTS (Male / Female) Normal Values 2D ECHO LV Diastolic Diameter PLAX 3.7 cm 4.2 - 5.9 / 3.9 - 5.3 cm LV Systolic Diameter PLAX 3.1 cm IVS Diastolic Thickness 1.2 cm 0.6 - 1.0 / 0.6 - 0.9 cm LVPW Diastolic Thickness 1.3 cm 0.6 - 1.0 / 0.6 - 0.9 cm LV Relative Wall Thickness 0.7 RV Internal Dim ED PLAX 3.6 cm LA Systolic Diameter LX 4.1 cm 3.0 - 4.0 / 2.7 - 3.8 cm LA Volume 82.5 cm??? 18 - 58 / 22 - 52 cm??? M-MODE Aortic Root Diameter MM 2.8 cm LA Systolic Diameter MM 4.4 cm LA Ao Ratio MM 1.5 MV E Point Septal Separation 0.3 cm AV Cusp Separation MM 1.6 cm DOPPLER AV Peak Velocity 214.4 cm/s AV Peak Gradient 18.4 mmHg AV Mean Velocity 140.5 cm/s AV Mean Gradient 9.4 mmHg AV Velocity Time Integral 39.6 cm LVOT Peak Velocity 124.2 cm/s LVOT Peak Gradient 6.2 mmHg MV Area PHT 3.6 cm??? Mitral E Point Velocity 56.6 cm/s Mitral A Point Velocity 98.8 cm/s Mitral E to A Ratio 0.6 MV Deceleration Time 210.7 ms MV E' Velocity 6.9 cm/s Mitral E to MV E' Ratio 8.2 TR Peak Velocity 300.1 cm/s TR Peak Gradient 36.0 mmHg Right Ventricular Systolic Press 41.0 mmHg FINDINGS Left Ventricle Left ventricular ejection fraction is estimated at 50-55%. Right Ventricle Normal right ventricular size and function. Mild pulmonary hypertension. Right Atrium Normal right atrial size. Left Atrium Severely increased left atrial volume. Mitral Valve Structurally normal mitral valve. Mild mitral regurgitation. Aortic Valve Mild aortic stenosis with a peak gradient of 18 mmHg and a mean gradient of 9 mmHg. Tricuspid Valve Structurally normal tricuspid valve. Pulmonic Valve Structurally normal pulmonic valve. Pericardium Normal pericardium. Aorta Normal size aortic root and proximal ascending aorta. CONCLUSIONS Normal LV systolic function. Dilated left atrium. Mild aortic stenosis Previewed by: Dr. Krishna Mabry MD (Electronically Signed) Final Date: 27 December 2021 11:03
[2021-12-27 12:21] LABS: Bilirubin,Unconjugated 0.5 mg/dL (0.0-1.1); Total Bilirubin 0.5 mg/dL (0.2-1.3)
[2021-12-27] MEDS: SODIUM CHLORIDE 0.9% 1,000 ML IV SCH ×4 (12:48→22:34)
--- NOTE | 2021-12-27 16:00 | P.CONS ---
History of Present Illness - Reason for Consult Consult date: 12/27/21 anemia Requesting physician: Richard Wheat - Chief Complaint dyspnea - History of Present Illness Mr Duggan is a pleasant 89-year-old man we have been asked to see regarding anemia. Patient presented to ED with c/o SOB, progressive over the last 2 weeks, associated with dizziness and lightheadedness, denied syncope/near syncope. He was found to have microcytic, hypochromic anemia on admission, chart reviewed shows this has been progressive over the last 6 months. Patient denied any gross bleeding, epistaxis, gum bleeding, hematochezia or melena. He is not certain if he has any hematuria. Reports treatment for low iron in the past, about 3-4 years ago after a knee replacement. He states he is very active, eats pretty well, he takes care of his . He has a history of myocardial infarction 4, 2 stents, he had a TURP 2-3 years ago, Covid 6 months ago-patient was vaccinated 2 with a booster. His last colonoscopy was about 15 years ago with a diagnosis of diverticulosis. Patient states he was in his normal state of health until just the last couple of weeks. Review of Systems 10 point review of systems is negative except as stated in HPI Past Medical History Past Medical History: Coronary Artery Disease (CAD), Heart Failure, CVA/TIA, Deep Vein Thrombosis (DVT), Hyperlipidemia, Hypertension, Myocardial Infarction (PR), Osteoarthritis (OA) Additional Past Medical History / Comment(s): states multiple small stroke, htn, 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 states PR and stent placement 2010. Last Myocardial Infarction Date:: 2010 History of Any Multi-Drug Resistant Organisms: None Reported Past Surgical History: Ear Surgery, Heart Catheterization With Stent, Joint Replacement, Orthopedic Surgery Additional Past Surgical History / Comment(s): Lt knee, Rt knee, cataract removal, back operation 4-5 years ago. Past Anesthesia/Blood Transfusion Reactions: No Reported Reaction Date of Last Stent Placement:: 2010 Past Psychological History: No Psychological Hx Reported Additional Psychological History / Comment(s): Per pt. in the 1970's went to a psychiatrist/therapist for a short peroid of time. Smoking Status: Former smoker Past Alcohol Use History: None Reported Past Drug Use History: None Reported Additional Drug Use History / Comment(s): quit smoking when he was 27. - Past Family History Son(s) Family Medical History: Coronary Artery Disease (CAD) Additional Family Medical History / Comment(s): son from heart disease, was born with heart defect. Medications and Allergies Home Medications Medication Instructions Recorded Confirmed Type PARoxetine [Paxil] 20 mg PO DAILY 07/21/14 12/26/21 History Tamsulosin [Flomax] 0.4 mg PO DAILY 07/21/14 12/26/21 History Omeprazole 20 mg PO DAILY 01/11/21 12/26/21 History Atorvastatin [Lipitor] 10 mg PO HS 07/04/21 12/26/21 History Clobetasol Propionate [Temovate 1 applic TOPICAL BID 07/04/21 12/26/21 History 0.05% Cream] Aspirin EC [Ecotrin Low Dose] 81 mg PO DAILY 12/26/21 12/26/21 History Cholecalciferol [Vitamin D3 (25 25 mcg PO DAILY 12/26/21 12/26/21 History Mcg = 1000 Iu)] Doxycycline Hyclate 100 mg PO DIRECTED 12/26/21 12/26/21 History Losartan/Hydrochlorothiazide 1 tab PO DAILY 12/26/21 12/26/21 History [Losartan-Hctz 100-25 mg Tab] Magnesium Oxide [Magnesium] 500 mg PO BID 12/26/21 12/26/21 History Allergies Allergy/AdvReac Type Severity Reaction Status Date / Time peanut Allergy Rash/Hives Verified 12/26/21 22:12 dutasteride [From Avodart] AdvReac Rapid Verified 12/26/21 22:12 Heart Rate morphine AdvReac PASS OUT Verified 12/26/21 22:12 venom-honey bee AdvReac PASS OUT Verified 12/26/21 22:12 [bee venom (honey bee)] Physical Exam Vitals: Vital Signs Temp Pulse Pulse Resp BP BP Pulse Ox 12/27/21 08:00 98.3 F 81 14 181/78 96 12/27/21 00:08 98.2 F 60 20 177/73 97 12/26/21 22:52 98.7 F 64 18 177/85 98 12/26/21 22:40 62 19 96 12/26/21 22:30 64 17 98 12/26/21 22:20 67 21 100 12/26/21 22:10 71 18 100 12/26/21 22:00 73 22 176/89 98 12/26/21 21:50 64 17 176/89 99 12/26/21 21:40 62 19 176/89 99 12/26/21 21:34 71 20 99/79 99 12/26/21 21:30 67 16 99/79 99 12/26/21 21:20 72 17 12/26/21 21:10 71 15 12/26/21 21:02 69 15 12/26/21 20:50 74 18 12/26/21 20:47 68 16 12/26/21 19:39 98.8 F 83 18 173/81 98 Intake and Output 12/27/21 12/27/21 12/27/21 06:59 14:59 22:59 Output Total 425 Balance -425 Output: Urine 425 Other: Voiding Method Toilet Urinal Weight 79.379 kg - Constitutional General appearance: average body habitus, cooperative, no acute distress - EENT Eyes: anicteric sclerae, EOMI ENT: hard of hearing, normal oropharynx - Neck Neck: no lymphadenopathy, normal ROM - Respiratory Respiratory: bilateral: CTA - Cardiovascular Rhythm: regular Heart sounds: normal: S1, S2 Abnormal Heart Sounds: no systolic murmur, no diastolic murmur, no rub, no S3 Gallop, no S4 Gallop, no click, no other leg Peripheral Edema: bilateral: None - Gastrointestinal General gastrointestinal: no absent bowel sounds, no decreased bowel sounds, no distended, no hepatomegaly, no hyperactive bowel sounds, normal bowel sounds, no organomegaly, no rigid, no scaphoid, soft, no splenomegaly, no tenderness, no um bilical hernia, no ventral hernia - Neurologic Neurologic: CNII-XII intact - Musculoskeletal Musculoskeletal: strength equal bilaterally - Psychiatric Psychiatric: A&O x's 3, appropriate affect, intact judgment & insight Results CBC & Chem 7: 12/27/21 07:16 12/27/21 07:16 Labs: Abnormal Lab Results - Last 24 Hours (Table) 12/26/21 12/26/21 12/27/21 Range/Units 20:30 20:30 03:30 RBC 3.61 L 3.11 L (4.30-5.90) m/uL Hgb 9.2 L 7.9 L (13.0-17.5) gm/dL Hct 29.1 L 25.3 L (39.0-53.0) % MCH (25.0-35.0) pg MCHC (31.0-37.0) g/dL RDW 15.8 H 15.7 H (11.5-15.5) % Lymphocytes # 0.6 L 0.7 L (1.0-4.8) k/uL Retic Count (0.5-2.0) % Sodium 123 L (137-145) mmol/L Chloride 92 L (98-107) mmol/L Carbon Dioxide 21 L (22-30) mmol/L Anion Gap (10.00-18.00) mmol/L Glucose 109 H (74-99) mg/dL Calcium 7.8 L (8.4-10.2) mg/dL Total Protein 5.1 L (6.3-8.2) g/dL Albumin 2.8 L (3.5-5.0) g/dL Urine Protein (Negative) Ur Leukocyte Esterase (Negative) Urine Bacteria (None) /hpf Urine Mucus (None) /hpf 12/27/21 12/27/21 12/27/21 Range/Units 03:30 06:00 07:16 RBC (4.30-5.90) m/uL Hgb (13.0-17.5) gm/dL Hct (39.0-53.0) % MCH (25.0-35.0) pg MCHC (31.0-37.0) g/dL RDW (11.5-15.5) % Lymphocytes # (1.0-4.8) k/uL Retic Count (0.5-2.0) % Sodium 123 L 128 L (137-145) mmol/L Chloride 95 L (98-107) mmol/L Carbon Dioxide 20 L (22-30) mmol/L Anion Gap 8.10 L (10.00-18.00) mmol/L Glucose (74-99) mg/dL Calcium 7.4 L 7.8 L (8.4-10.2) mg/dL Total Protein (6.3-8.2) g/dL Albumin (3.5-5.0) g/dL Urine Protein Trace H (Negative) Ur Leukocyte Esterase Trace H (Negative) Urine Bacteria Rare H (None) /hpf Urine Mucus Rare H (None) /hpf 12/27/21 Range/Units 07:16 RBC 3.42 L (4.30-5.90) m/uL Hgb 8.5 L (13.0-17.5) gm/dL Hct 28.2 L (39.0-53.0) % MCH 24.9 L (25.0-35.0) pg MCHC 30.2 L (31.0-37.0) g/dL RDW 16.0 H (11.5-15.5) % Lymphocytes # 0.7 L (1.0-4.8) k/uL Retic Count 2.8 H (0.5-2.0) % Sodium (137-145) mmol/L Chloride (98-107) mmol/L Carbon Dioxide (22-30) mmol/L Anion Gap (10.00-18.00) mmol/L Glucose (74-99) mg/dL Calcium (8.4-10.2) mg/dL Total Protein (6.3-8.2) g/dL Albumin (3.5-5.0) g/dL Urine Protein (Negative) Ur Leukocyte Esterase (Negative) Urine Bacteria (None) /hpf Urine Mucus (None) /hpf Comments: echo report reviewed-LVEF 50-55% Chest x-ray: report reviewed (cardiomegaly, vascular congestion) Assessment and Plan (1) Microcytic hypochromic anemia Current Visit: Yes Status: Chronic Priority: High Code(s): D50.9 - IRON DEFICIENCY ANEMIA, UNSPECIFIED SNOMED Code(s): 17159947 Plan: Chart review reveals anemia has been a progressive thing over at least the last 6 months-including hychromasia and microcytosis. Patient denied any unusual events or new medication in the last 6 months, Covid infection was not severe, does have a chronic cough. Iron studies and nutritional labs ordered. If iron deficiency revealed recommendation would be for upper and lower endoscopy. Urinalysis was reviewed, negative for blood. attests: I have seen and examined patient, performed H&P, developed impression and plan of care. Discussed with dictator. Agree with document ation, dictated as a scribe
--- NOTE | 2021-12-27 18:21 | P.PN ---
Subjective Patient seen and examined at bedside. Patient continues to have some fatigue. Patient denies nausea vomiting fevers chills shortness of breath or chest pain. Hemoglobin this morning was 7.8 down from 9.2 Objective - Vital Signs Vital signs: Vital Signs Temp 98.3 F 12/27/21 14:00 Pulse 82 12/27/21 14:00 Resp 14 12/27/21 14:00 BP 128/63 12/27/21 14:00 Pulse Ox 94 L 12/27/21 14:00 FiO2 Intake & Output 12/26/21 12/27/21 12/27/21 18:59 06:59 18:59 Output Total 425 Balance -425 Weight 79.379 kg Output: Urine 425 Other: Voiding Method Toilet Urinal - Exam General: [non toxic], [no distress], [appears at stated age] Derm: [warm], [dry] Head: [atraumatic], [normocephalic], [symmetric] Eyes: [EOMI], [no lid lag], [anicteric sclera] Mouth: [no lip lesion], [mucus membranes moist] Cardiovascular: [S1S2 reg], [no murmur], [positive posterior tibial pulse bilate ral], Lungs: [CTA bilateral], [no rhonchi, no rales] , [no accessory muscle use] Abdominal: [soft], [ nontender to palpation], [no guarding], [no appreciable organomegaly] Ext: [no gross muscle atrophy], [no edema], [no contractures] Neuro: [ CN II-XI grossly intact], [no focal neuro deficits] Psych: [Alert], [oriented], [appropriate affect] - Labs CBC & Chem 7: 12/27/21 07:16 12/27/21 07:16 Labs: Abnormal Lab Results - Last 24 Hours (Table) 12/26/21 12/26/21 12/27/21 Range/Units 20:30 20:30 03:30 RBC 3.61 L 3.11 L (4.30-5.90) m/uL Hgb 9.2 L 7.9 L (13.0-17.5) gm/dL Hct 29.1 L 25.3 L (39.0-53.0) % MCH (25.0-35.0) pg MCHC (31.0-37.0) g/dL RDW 15.8 H 15.7 H (11.5-15.5) % Lymphocytes # 0.6 L 0.7 L (1.0-4.8) k/uL Retic Count (0.5-2.0) % Sodium 123 L (137-145) mmol/L Chloride 92 L (98-107) mmol/L Carbon Dioxide 21 L (22-30) mmol/L Anion Gap (10.00-18.00) mmol/L Glucose 109 H (74-99) mg/dL Calcium 7.8 L (8.4-10.2) mg/dL Total Protein 5.1 L (6.3-8.2) g/dL Albumin 2.8 L (3.5-5.0) g/dL Urine Protein (Negative) Ur Leukocyte Esterase (Negative) Urine Bacteria (None) /hpf Urine Mucus (None) /hpf 12/27/21 12/27/21 12/27/21 Range/Units 03:30 06:00 07:16 RBC (4.30-5.90) m/uL Hgb (13.0-17.5) gm/dL Hct (39.0-53.0) % MCH (25.0-35.0) pg MCHC (31.0-37.0) g/dL RDW (11.5-15.5) % Lymphocytes # (1.0-4.8) k/uL Retic Count (0.5-2.0) % Sodium 123 L 128 L (137-145) mmol/L Chloride 95 L (98-107) mmol/L Carbon Dioxide 20 L (22-30) mmol/L Anion Gap 8.10 L (10.00-18.00) mmol/L Glucose (74-99) mg/dL Calcium 7.4 L 7.8 L (8.4-10.2) mg/dL Total Protein (6.3-8.2) g/dL Albumin (3.5-5.0) g/dL Urine Protein Trace H (Negative) Ur Leukocyte Esterase Trace H (Negative) Urine Bacteria Rare H (None) /hpf Urine Mucus Rare H (None) /hpf 12/27/21 Range/Units 07:16 RBC 3.42 L (4.30-5.90) m/uL Hgb 8.5 L (13.0-17.5) gm/dL Hct 28.2 L (39.0-53.0) % MCH 24.9 L (25.0-35.0) pg MCHC 30.2 L (31.0-37.0) g/dL RDW 16.0 H (11.5-15.5) % Lymphocytes # 0.7 L (1.0-4.8) k/uL Retic Count 2.8 H (0.5-2.0) % Sodium (137-145) mmol/L Chloride (98-107) mmol/L Carbon Dioxide (22-30) mmol/L Anion Gap (10.00-18.00) mmol/L Glucose (74-99) mg/dL Calcium (8.4-10.2) mg/dL Total Protein (6.3-8.2) g/dL Albumin (3.5-5.0) g/dL Urine Protein (Negative) Ur Leukocyte Esterase (Negative) Urine Bacteria (None) /hpf Urine Mucus (None) /hpf Assessment and Plan Assessment: Symptomatic Acute anemia, unknown underlying cause No evidence of GI bleeding Hematology recommendations appreciated Echocardiogram reveals an ejection fraction of 50-55% with mild aortic stenosis Fecal occult blood test negative Most recent colonoscopy over 10 years ago Consider EGD and colonoscopy to rule out GI cause Consult surgery for further evaluation and recommendations STAT troponin, d-dimer, and pro-BNP Persistent cough since Covid infection 6 months ago Patient reports postnasal drip Consider outpatient follow-up with ENT Poorly controlled hypertension secondary to noncompliance with medications at home Resume home blood pressure medication losartan, hold hydrochlorothiazide due to hyponatremia Clonidine when necessary for systolic above 180 Hyponatremia Gentle IV fluid hydration with normal saline Monitor renal function and sodium level Hold hydrochlorothiazide Chronic conditions Coronary artery disease status post stents TIA Hyperlipidemia BPH continue Flomax DVT prophylaxis mechanical Full code Time with Patient: Greater than 30
[2021-12-27 19:59] LABS: % Iron Saturation 4.94 (15.00-50.00); Iron 13 ug/dL (65-175); Total Iron Binding Capacity 259 ug/dL (228-460)
[2021-12-27] MEDS: ATORVASTATIN 10 MG TAB PO SCH (21:00)
[2021-12-28] MEDS: SODIUM CHLORIDE 0.9% 1,000 ML IV SCH ×3 (06:00→13:35)
[2021-12-28 08:03] LABS: ALT 26 U/L (4-49); AST 24 U/L (17-59); African American GFR (CKD) 90 (>60 ml/min/1.73 sqM); Albumin 2.5 g/dL (3.5-5.0); Albumin/Globulin Ratio 1.1; Alkaline Phosphatase 107 U/L (38-126); Anion Gap 8 mmol/L; Blood Urea Nitrogen 11 mg/dL (9-20); Calcium 7.9 mg/dL (8.4-10.2); Carbon Dioxide 21 mmol/L (22-30); Chloride 95 mmol/L (98-107); Globulin 2.2 g/dL; Glucose 91 mg/dL (74-99); Non-African American GFR(CKD) 78 (>60 ml/min/1.73 sqM); Potassium 4.1 mmol/L (3.5-5.1); Sodium 124 mmol/L (137-145); Total Bilirubin 0.9 mg/dL (0.2-1.3); Total Protein 4.7 g/dL (6.3-8.2)
[2021-12-28] MEDS: TAMSULOSIN 0.4 MG CAP.ER.24H PO SCH (09:58)
[2021-12-28] MEDS: PARoxetine 20 MG TAB PO SCH (09:59)
[2021-12-28] MEDS: LOSARTAN 50 MG TAB PO SCH (09:59)
[2021-12-28] MEDS: PANTOPRAZOLE 40 MG TABLET PO SCH (09:59)
[2021-12-28] MEDS: ASPIRIN 81 MG PO SCH (10:00)
[2021-12-28] MEDS: MAGNESIUM OXIDE 400 MG TAB PO SCH ×2 (10:02→21:02)
[2021-12-28] MEDS: SODIUM FERRIC GLUCONAT-SUCROSE 125 MG in SODIUM CHLORIDE 0.9% 100 ML IVPB SCH (10:03)
[2021-12-28 10:50] LABS: Basophils # (A) 0.04 X 10*3/uL (0.00-0.10); Basophils % (A) 0.6 %; Eosinophils # (A) 0.63 X 10*3/uL (0.04-0.35); Eosinophils % (A) 10.2 %; HCT 25.6 % (39.6-50.0); HGB 8.3 g/dL (13.0-17.0); Immature Grans, Automated 0.5 %; Lymphocytes # (A) 0.81 X 10*3/uL (0.90-5.00); Lymphocytes % (A) 13.1 %; MCH 25.5 pg (27.0-32.0); MCHC 32.4 g/dL (32.0-37.0); MCV 78.5 fL (80.0-97.0); Mean Platelet Volume 8.5 fL (9.5-12.2); Monocytes # (A) 1.01 X 10*3/uL (0.20-1.00); Monocytes % (A) 16.4 %; NRBC Per 100 WBC 0 /100 WBCS (0.0-0.0); Neutrophils # (A) 3.64 X 10*3/uL (1.80-7.70); Neutrophils % (A) 59.2 %; Platelet Count 382 X 10*3/uL (140-440); RBC 3.26 X 10*6/uL (4.40-5.60); RDW 16.1 % (11.5-14.5); WBC 6.16 X 10*3/uL (4.50-10.00)
--- NOTE | 2021-12-28 12:28 | CDI ---
Documentation Clarification Form Date: 12/28/2021 12:14:10 PM From: Molly De Leon CCS, CCDS Admit Date: 12/27/2021 11:12:00 AM Patient Name: Stan Duggan Visit Number: [id number] Discharge Date: ATTENTION: The Clinical Documentation Specialists (CDI) and [facility] Coding Staff appreciate your assistance in clarifying documentation. Please respond to the clarification below the line at the bottom and electronically sign. The CDI & [facility] Coding staff will review the response and follow-up if needed. Please note: Queries are made part of the Legal Health Record. If you have any questions, please contact the author of this message via ITS. Dr. Richard Wheat or Dr. Cartagena Eager: Your patient has the documented diagnosis of Heart Failure without further specificity. ECHO ordered per 12/26 H/P to evaluate exertional dyspnea. Additional information regarding the Type and Acuity of CHF is requested. History/Risk Factors per the 12/26 H/P: CAD with history of GA and stent, Heart Failure, TIA, DVT, Hypertension, Hyperlipidemia, Osteoarthritis. Former smoker. Clinical Indicators: Presented to the ED 12/26 with Weakness and abnormal labs from PCP office, found to be acutely anemia. Admit with symptomatic Anemia and Dehydration 12/26 VS: T 98.8, P 83, R 18, BP 173/81, PO 98 RA, BMI:26.6 12/26 LAB: RBC 3.61, Hgb 9.2, Hct 29.1, Lymph 0.6; Na 123, Chloride 92, CO2 21, Glucose 109, Calcium 7.8, Total Protein 5.1, Albumin 2.8. 12/27 Iron 13, TIBC 259, % Sat 4.94, Transferrin 185.0, Ferritin 41.0 12/26 CXR: Cardiomegaly and mild pulmonary vascular congestion suggested. Correlate with BNP for CHF. 12/27 ECHO: Normal LV systolic function, EF 55%. Dilated left atrium. Mild aortic stenosis. Treatment 12/26: Telemetry, O2 2Lnc prn, IV Na Chl 1,000 mls @ 999 mls/hr q1H, IV Na Chl 1,000 mls @ 130 mls/hr q7H 12/27: po Catapres 0.2 mg QID, po Protonix 40 mg catal[place], po Aspirin 81 mg Daily, po Hydrodiuril 25 mg Daily, po Cozaar 100 mg Daily, po Mag-Ox 400 mg BID, IV Na Chl 1,000 mls @ 75 mls/hr q13H, po Lipitor 10 mg catalina. Home meds: Magnesium, Ecotrin low dose, Losartan-Hctz, Vit D3, Doxycycline Hyclate, Flomax, Paxil, Omeprazole, Lipitor In your professional opinion, can you please clarify the Acuity & Type of CHF if known? [ ] Chronic Diastolic Heart Failure [ ] Chronic Systolic & Diastolic Heart Failure [ ] Heart Failure ruled out [ ] Other, please specify [ ] Unable to determine (Template Last Revised: May 2020) MTDD
--- NOTE | 2021-12-28 15:03 | P.GSCN ---
History of Present Illness Consult date: 12/28/21 History of present illness: CHIEF COMPLAINT: Shortness of breath and weakness HISTORY OF PRESENT ILLNESS: This 89-year-old male who percent mask with complaints of shortness of breath, weakness and fatigue over the last 3 weeks. He was seen by his PCP and was found to have a low hemoglobin outpatient. He was then informed to go to the emergency room. Patient denies any hematochezia, melena or hematemesis. He denies any abdominal pain. He has been having some n ausea. He reports that his bowel movement have been regular. He denies being on any blood thinners. Last colonoscopy was 15 years ago which had revealed diverticulosis and colon polyps. Hemoglobin on admission was 9.2 down to 8.5 his iron studies are low at 13. He was seen by hematology service they did recommend EGD and colonoscopy workup for the anemia. Therefore, surgical service was consulted for endoscopies. PAST MEDICAL HISTORY: Coronary disease cardiac stents, DVT, myocardial infarction, CVA, PAST SURGICAL HISTORY: See list. MEDICATIONS: See list. ALLERGIES: See list. SOCIAL HISTORY: No illicit drug use. REVIEW OF SYSTEMS: CONSTITUTIONAL: Denies fever or chills. HEENT: Denies blurred vision, vision changes, or eye pain. Denies hemoptysis CARDIOVASCULAR: Denies chest pain or pressure. RESPIRATORY: No shortness of breath. GASTROINTESTINAL: See HPI for pertinent findings HEMATOLOGIC: Denies bleeding disorders. GENITOURINARY: Denies any blood in urine or increased urinary frequency. SKIN: Denies pruitis. Denies rash. PHYSICAL EXAM: VITAL SIGNS: Reviewed GENERAL: Well-developed in no acute distress. HEENT: No sclera icterus. Extraocular movements grossly intact. Moist buccal mucosa. Head is atraumatic, normocephalic. No nasal drainage. ABDOMEN: Soft. Nondistended. Nontender NEUROLOGIC: Alert and oriented. Cranial nerves II through XII grossly intact. LABORATORY DATA: WBC is 6.16 Hgb 9.2 on admission trending down to 8.3 platelets 382 sodium 124 creatinine 0.84 Iron 13 Stool occult blood negative Albumin low at 2.5 IMAGING: ASSESSMENT: 1. Microcytic anemia no active bleeding 2. Iron deficiency anemia 3. Hyponatremia PLAN: -Recommend EGD and colonoscopy on 01/01/[address] bhesania. Patient can have endoscopies done outpatient if patient is medically able to be discharged over the next couple of days otherwise we'll plan for inpatient -Continue to monitor hemoglobin -Agree with IV iron transfusion -Continue regular diet -Hyponatremia management per nephrology Thank you for this consultation Physician Refrigeration System Installer note has been reviewed by physician. Signing provider agrees with the documented findings, assessment, and plan of care. Past Medical History Past Medical History: Coronary Artery Disease (CAD), Heart Failure, CVA/TIA, Deep Vein Thrombosis (DVT), Hyperlipidemia, Hypertension, Myocardial Infarction (OR), Osteoarthritis (OA) Additional Past Medical History / Comment(s): states multiple small stroke, htn, 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 states [place] and stent placement 2010. Last Myocardial Infarction Date:: 2010 History of Any Multi-Drug Resistant Organisms: None Reported Past Surgical History: Ear Surgery, Heart Catheterization With Stent, Joint Replacement, Orthopedic Surgery Additional Past Surgical History / Comment(s): Lt knee, Rt knee, cataract removal, back operation 4-5 years ago. Past Anesthesia/Blood Transfusion Reactions: No Reported Reaction Date of Last Stent Placement:: 2010 Past Psychological History: No Psychological Hx Reported Additional Psychological History / Comment(s): Per pt. in the 1970's went to a psychiatrist/therapist for a short peroid of time. Smoking Status: Former smoker Past Alcohol Use History: None Reported Past Drug Use History: None Reported Additional Drug Use History / Comment(s): quit smoking when he was 27. - Past Family History Son(s) Family Medical History: Coronary Artery Disease (CAD) Additional Family Medical History / Comment(s): son from heart disease, was born with heart defect. Medications and Allergies Home Medications Medication Instructions Recorded Confirmed Type PARoxetine [Paxil] 20 mg PO DAILY 07/21/14 12/26/21 History Tamsulosin [Flomax] 0.4 mg PO DAILY 07/21/14 12/26/21 History Omeprazole 20 mg PO DAILY 01/11/21 12/26/21 History Atorvastatin [Lipitor] 10 mg PO HS 07/04/21 12/26/21 History Clobetasol Propionate [Temovate 1 applic TOPICAL BID 07/04/21 12/26/21 History 0.05% Cream] Aspirin EC [Ecotrin Low Dose] 81 mg PO DAILY 12/26/21 12/26/21 History Cholecalciferol [Vitamin D3 (25 25 mcg PO DAILY 12/26/21 12/26/21 History Mcg = 1000 Iu)] Doxycycline Hyclate 100 mg PO DIRECTED 12/26/21 12/26/21 History Losartan/Hydrochlorothiazide 1 tab PO DAILY 12/26/21 12/26/21 History [Losartan-Hctz 100-25 mg Tab] Magnesium Oxide [Magnesium] 500 mg PO BID 12/26/21 12/26/21 History Allergies Allergy/AdvReac Type Severity Reaction Status Date / Time peanut Allergy Rash/Hives Verified 12/26/21 22:12 dutasteride [From Avodart] AdvReac Rapid Verified 12/26/21 22:12 Heart Rate morphine AdvReac PASS OUT Verified 12/26/21 22:12 venom-honey bee AdvReac PASS OUT Verified 12/26/21 22:12 [bee venom (honey bee)] Surgical - Exam Vital Signs Temp Pulse Resp BP Pulse Ox 98.8 F 83 18 173/81 98 12/26/21 19:39 12/26/21 19:39 12/26/21 19:39 12/26/21 19:39 12/26/21 19:39 Results - Labs 12/28/21 07:04 12/28/21 07:04 Abnormal Lab Results - Last 24 Hours (Table) 12/27/21 12/28/21 12/28/21 Range/Units 07:16 07:04 07:04 RBC 3.26 L (4.40-5.60) X 10*6/uL Hgb 8.3 L (13.0-17.0) g/dL Hct 25.6 L (39.6-50.0) % MCV 78.5 L (80.0-97.0) fL MCH 25.5 L (27.0-32.0) pg RDW 16.1 H (11.5-14.5) % MPV 8.5 L (9.5-12.2) fL Lymphocytes # 0.81 L (0.90-5.00) X 10*3/uL Monocytes # 1.01 H (0.20-1.00) X 10*3/uL Eosinophils # 0.63 H (0.04-0.35) X 10*3/uL Sodium 124 L (137-145) mmol/L Chloride 95 L (98-107) mmol/L Carbon Dioxide 21 L (22-30) mmol/L Calcium 7.9 L (8.4-10.2) mg/dL Iron 13 L (65-175) ug/dL % Saturation 4.94 L (15.00-50.00) Transferrin 185.0 L (204.0-354.0) mg/dL Total Protein 4.7 L (6.3-8.2) g/dL Albumin 2.5 L (3.5-5.0) g/dL Vitamin B12 999.0 H (200.0-944.0) pg/mL Diabetes panel 12/28/21 Range/Units 07:04 Sodium 124 L (137-145) mmol/L Potassium 4.1 (3.5-5.1) mmol/L Chloride 95 L (98-107) mmol/L Carbon Dioxide 21 L (22-30) mmol/L BUN 11 (9-20) mg/dL Creatinine 0.84 (0.66-1.25) mg/dL Glucose 91 (74-99) mg/dL Calcium 7.9 L (8.4-10.2) mg/dL AST 24 (17-59) U/L ALT 26 (4-49) U/L Alkaline Phosphatase 107 (38-126) U/L Total Protein 4.7 L (6.3-8.2) g/dL Albumin 2.5 L (3.5-5.0) g/dL Calcium panel 12/28/21 Range/Units 07:04 Calcium 7.9 L (8.4-10.2) mg/dL Albumin 2.5 L (3.5-5.0) g/dL Pituitary panel 12/28/21 Range/Units 07:04 Sodium 124 L (137-145) mmol/L Potassium 4.1 (3.5-5.1) mmol/L Chloride 95 L (98-107) mmol/L Carbon Dioxide 21 L (22-30) mmol/L BUN 11 (9-20) mg/dL Creatinine 0.84 (0.66-1.25) mg/dL Glucose 91 (74-99) mg/dL Calcium 7.9 L (8.4-10.2) mg/dL Adrenal panel 12/27/21 12/28/21 Range/Units 11:11 07:04 Sodium 124 L (137-145) mmol/L Potassium 4.1 (3.5-5.1) mmol/L Chloride 95 L (98-107) mmol/L Carbon Dioxide 21 L (22-30) mmol/L BUN 11 (9-20) mg/dL Creatinine 0.84 (0.66-1.25) mg/dL Glucose 91 (74-99) mg/dL Calcium 7.9 L (8.4-10.2) mg/dL Total Bilirubin 0.5 0.9 (0.2-1.3) mg/dL AST 24 (17-59) U/L ALT 26 (4-49) U/L Alkaline Phosphatase 107 (38-126) U/L Total Protein 4.7 L (6.3-8.2) g/dL Albumin 2.5 L (3.5-5.0) g/dL
--- NOTE | 2021-12-28 15:33 | P.PN ---
Subjective Progress Note Date: 12/28/21 Patient seen and examined at bedside. Patient was receiving IV iron today. Awaiting surgery recommendations regarding EGD and colonoscopy likely to be done as an outpatient. Patient denies chest pain shortness of breath nausea vomiting fevers or chills. Objective - Vital Signs Vital signs: Vital Signs Temp 98.0 F 12/28/21 08:00 Pulse 77 12/28/21 08:00 Resp 16 12/28/21 08:00 BP 170/85 12/28/21 08:00 Pulse Ox 95 12/28/21 08:00 FiO2 Intake & Output 12/27/21 12/28/21 12/28/21 18:59 06:59 18:59 Intake Total 200 Balance 200 Intake: Oral 200 Other: Voiding Method Toilet Urinal # Voids 3 - Exam General: [non toxic], [no distress], [appears at stated age] Derm: [warm], [dry] Head: [atraumatic], [normocephalic], [symmetric] Eyes: [EOMI], [no lid lag], [anicteric sclera] Mouth: [no lip lesion], [mucus membranes moist] Cardiovascular: [S1S2 reg], [no murmur], [positive posterior tibial pulse bilateral], Lungs: [CTA bilateral], [no rhonchi, no rales] , [no accessory muscle use] Abdominal: [soft], [ nontender to palpation], [no guarding], [no appreciable organomegaly] Ext: [no gross muscle atrophy], [no edema], [no contractures] Neuro: [ CN II-XI grossly intact], [no focal neuro deficits] Psych: [Alert], [oriented], [appropriate affect] - Labs CBC & Chem 7: 12/28/21 07:04 12/28/21 07:04 Labs: Abnormal Lab Results - Last 24 Hours (Table) 12/27/21 12/28/21 12/28/21 Range/Units 07:16 07:04 07:04 RBC 3.26 L (4.40-5.60) X 10*6/uL Hgb 8.3 L (13.0-17.0) g/dL Hct 25.6 L (39.6-50.0) % MCV 78.5 L (80.0-97.0) fL MCH 25.5 L (27.0-32.0) pg RDW 16.1 H (11.5-14.5) % MPV 8.5 L (9.5-12.2) fL Lymphocytes # 0.81 L (0.90-5.00) X 10*3/uL Monocytes # 1.01 H (0.20-1.00) X 10*3/uL Eosinophils # 0.63 H (0.04-0.35) X 10*3/uL Sodium 124 L (137-145) mmol/L Chloride 95 L (98-107) mmol/L Carbon Dioxide 21 L (22-30) mmol/L Calcium 7.9 L (8.4-10.2) mg/dL Iron 13 L (65-175) ug/dL % Saturation 4.94 L (15.00-50.00) Transferrin 185.0 L (204.0-354.0) mg/dL Total Protein 4.7 L (6.3-8.2) g/dL Albumin 2.5 L (3.5-5.0) g/dL Vitamin B12 999.0 H (200.0-944.0) pg/mL Assessment and Plan Assessment: Symptomatic Acute anemia, unknown underlying cause No evidence of GI bleeding Hematology recommendations appreciated Echocardiogram reveals an ejection fraction of 50-55% with mild aortic stenosis Fecal occult blood test negative Most recent colonoscopy over 10 years ago Consider EGD and colonoscopy to rule out GI cause likely as an outpatient Persistent cough since Covid infection 6 months ago Patient reports postnasal drip Consider outpatient follow-up with ENT Mucinex twice a day Poorly controlled hypertension secondary to noncompliance with medications at home Resume home blood pressure medication losartan, hold hydrochlorothiazide due to hyponatremia Clonidine when necessary for systolic above 180 Hyponatremia Discontinue IV fluids to to elevated BNP Monitor renal function and sodium level Hold hydrochlorothiazide Chronic conditions Coronary artery disease status post stents TIA Hyperlipidemia BPH continue Flomax DVT prophylaxis mechanical Full code Time with Patient: Greater than 30 Discharge planning with 24-48 hours
--- NOTE | 2021-12-28 17:42 | P.PN ---
Subjective Progress Note Date: 12/28/21 Principal diagnosis: iron def anemia In f/u today pt states he is feeling good, no bleeding to report, he has tolerated the IV iron. Objective - Vital Signs Vital signs: Vital Signs Temp 98.0 F 12/28/21 08:00 Pulse 77 12/28/21 08:00 Resp 16 12/28/21 08:00 BP 170/85 12/28/21 08:00 Pulse Ox 95 12/28/21 08:00 FiO2 Intake & Output 12/27/21 12/28/21 12/28/21 18:59 06:59 18:59 Intake Total 200 Balance 200 Intake: Oral 200 Other: Voiding Method Toilet Urinal # Voids 3 - Constitutional General appearance: Present: average body habitus, cooperative, no acute distress - EENT Eyes: Present: anicteric sclerae, EOMI - Cardiovascular Details: resp even and unlabored - Neurologic Neurologic: Present: CNII-XII intact - Musculoskeletal Musculoskeletal: Present: strength equal bilaterally - Psychiatric Psychiatric: Present: A&O x's 3, appropriate affect, intact judgment & insight - Labs CBC & Chem 7: 12/28/21 07:04 12/28/21 07:04 Labs: Abnormal Lab Results - Last 24 Hours (Table) 12/27/21 12/27/21 12/27/21 Range/Units 07:16 07:16 07:16 RBC 3.42 L (4.30-5.90) m/uL Hgb 8.5 L (13.0-17.5) gm/dL Hct 28.2 L (39.0-53.0) % MCH 24.9 L (25.0-35.0) pg MCHC 30.2 L (31.0-37.0) g/dL RDW 16.0 H (11.5-15.5) % Lymphocytes # 0.7 L (1.0-4.8) k/uL Retic Count 2.8 H (0.5-2.0) % Sodium 128 L (135-145) mmol/L Chloride (98-107) mmol/L Carbon Dioxide (22-30) mmol/L Anion Gap 8.10 L (10.00-18.00) mmol/L Calcium 7.8 L (8.7-10.3) mg/dL Iron 13 L (65-175) ug/dL % Saturation 4.94 L (15.00-50.00) Transferrin 185.0 L (204.0-354.0) mg/dL Total Protein (6.3-8.2) g/dL Albumin (3.5-5.0) g/dL Vitamin B12 999.0 H (200.0-944.0) pg/mL 12/28/21 Range/Units 07:04 RBC (4.30-5.90) m/uL Hgb (13.0-17.5) gm/dL Hct (39.0-53.0) % MCH (25.0-35.0) pg MCHC (31.0-37.0) g/dL RDW (11.5-15.5) % Lymphocytes # (1.0-4.8) k/uL Retic Count (0.5-2.0) % Sodium 124 L (135-145) mmol/L Chloride 95 L (98-107) mmol/L Carbon Dioxide 21 L (22-30) mmol/L Anion Gap (10.00-18.00) mmol/L Calcium 7.9 L (8.7-10.3) mg/dL Iron (65-175) ug/dL % Saturation (15.00-50.00) Transferrin (204.0-354.0) mg/dL Total Protein 4.7 L (6.3-8.2) g/dL Albumin 2.5 L (3.5-5.0) g/dL Vitamin B12 (200.0-944.0) pg/mL Assessment and Plan (1) Microcytic hypochromic anemia Current Visit: Yes Status: Chronic Priority: High Code(s): D50.9 - IRON DEFICIENCY ANEMIA, UNSPECIFIED SNOMED Code(s): 82583716 Plan: Chart review reveals anemia has been a progressive thing over at least the last 6 months-including hychromasia and microcytosis. Patient denied any unusual events or new medication in the last 6 months, Covid infection was not severe. Iron studies reviewed, pt does have iron def. IV iron ordered. Rec GI work up. F/U with Hem for lab monitoring and additional iron as needed. Appt in DC plan. No other nutritional deficiencies seen. attests: I have seen and examined patient, performed H&P, developed impression and plan of care. Discussed with dictator. Agree with documentation, dictated as a scribe
[2021-12-28] MEDS: guaiFENesin 600 MG TABLET.ER PO SCH (21:02)
[2021-12-28] MEDS: ATORVASTATIN 10 MG TAB PO SCH (21:02)
[2021-12-29] MEDS: SODIUM CHLORIDE 0.9% 1,000 ML IV SCH ×3 (03:10→10:10)
[2021-12-29] MEDS: TAMSULOSIN 0.4 MG CAP.ER.24H PO SCH (10:01)
[2021-12-29] MEDS: MAGNESIUM OXIDE 400 MG TAB PO SCH ×2 (10:01→20:48)
[2021-12-29] MEDS: guaiFENesin 600 MG TABLET.ER PO SCH ×2 (10:01→20:48)
[2021-12-29] MEDS: PARoxetine 20 MG TAB PO SCH (10:02)
[2021-12-29] MEDS: LOSARTAN 50 MG TAB PO SCH (10:02)
[2021-12-29] MEDS: ASPIRIN 81 MG PO SCH (10:02)
[2021-12-29] MEDS: SODIUM FERRIC GLUCONAT-SUCROSE 125 MG in SODIUM CHLORIDE 0.9% 100 ML IVPB SCH (10:03)
[2021-12-29] MEDS: PANTOPRAZOLE 40 MG TABLET PO SCH (10:03)
[2021-12-29 10:49] LABS: Basophils # (A) 0.05 X 10*3/uL (0.00-0.10); Basophils % (A) 0.7 %; Eosinophils # (A) 0.64 X 10*3/uL (0.04-0.35); Eosinophils % (A) 9.2 %; HCT 29.4 % (39.6-50.0); HGB 8.9 g/dL (13.0-17.0); Immature Grans, Automated 0.6 %; Lymphocytes # (A) 1.01 X 10*3/uL (0.90-5.00); Lymphocytes % (A) 14.4 %; MCH 24.5 pg (27.0-32.0); MCHC 30.3 g/dL (32.0-37.0); MCV 80.8 fL (80.0-97.0); Mean Platelet Volume 8.8 fL (9.5-12.2); Monocytes # (A) 1.09 X 10*3/uL (0.20-1.00); Monocytes % (A) 15.6 %; NRBC Per 100 WBC 0 /100 WBCS (0.0-0.0); Neutrophils # (A) 4.16 X 10*3/uL (1.80-7.70); Neutrophils % (A) 59.5 %; Platelet Count 442 X 10*3/uL (140-440); RBC 3.64 X 10*6/uL (4.40-5.60); RDW 16.3 % (11.5-14.5); WBC 6.99 X 10*3/uL (4.50-10.00)
[2021-12-29 11:11] LABS: African American GFR (CKD) 87.5 (60.0-200.0); Albumin 2.9 g/dL (3.8-4.9); Albumin/Globulin Ratio 1.32 (1.60-3.17); Anion Gap 12.1 mmol/L (10.00-18.00); BUN/Creat Ratio 11.89 Ratio (12.00-20.00); Blood Urea Nitrogen 10.7 mg/dL (9.0-27.0); Calcium 8.2 mg/dL (8.7-10.3); Carbon Dioxide 21.9 mmol/L (20.0-27.5); Globulin 2.2 g/dL (1.6-3.3); Non-African American GFR(CKD) 75.5 (60.0-200.0); Potassium 4.3 mmol/L (3.5-5.5); Total Bilirubin 0.6 mg/dL (0.30-1.20); Total Protein 5.1 g/dL (6.2-8.2)
--- NOTE | 2021-12-29 12:03 | P.NPCON ---
History of Present Illness - Reason for Consult hyponatremia - History of Present Illness Patient is an 89-year-old male with history of hypertension, coronary artery disease with coronary stents and hyperlipidemia. Patient was admitted to the hospital with complaints of increased weakness and shortness of breath. Patient was found to have a serum sodium of 123 on initial admission. No previous history of significant hyponatremia although I do see a sodium of 126 in June 2021. Patient denies any new medications that he started recently. He is maintained on thiazide diuretics at home for hypertension. No complaints of vomiting or diarrhea. Patient did have some nausea. Patient received normal saline initially and serum sodium increased to 128. Saline is currently on hold as sodium had dropped back down to 124 yesterday. Patient denies any history of CHF. Chest x-ray showed evidence of pulmonary vascular congestion on initial admission. Review of Systems As per HPI Past Medical History Past Medical History: Coronary Artery Disease (CAD), Heart Failure, CVA/TIA, Deep Vein Thrombosis (DVT), Hyperlipidemia, Hypertension, Myocardial Infarction (RI), Osteoarthritis (OA) Additional Past Medical History / Comment(s): states multiple small stroke, htn, 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 states [place] and stent placement 2010. Last Myocardial Infarction Date:: 2010 History of Any Multi-Drug Resistant Organisms: None Reported Past Surgical History: Ear Surgery, Heart Catheterization With Stent, Joint Replacement, Orthopedic Surgery Additional Past Surgical History / Comment(s): Lt knee, Rt knee, cataract removal, back operation 4-5 years ago. Past Anesthesia/Blood Transfusion Reactions: No Reported Reaction Date of Last Stent Placement:: 2010 Past Psychological History: No Psychological Hx Reported Additional Psychological History / Comment(s): Per pt. in the 1970s went to a psychiatrist/therapist for a short peroid of time. Smoking Status: Former smoker Past Alcohol Use History: None Reported Past Drug Use History: None Reported Additional Drug Use History / Comment(s): quit smoking when he was 27. - Past Family History Son(s) Family Medical History: Coronary Artery Disease (CAD) Additional Family Medical History / Comment(s): son from heart disease, was born with heart defect. Medications and Allergies Home Medications Medication Instructions Recorded Confirmed Type PARoxetine [Paxil] 20 mg PO DAILY 07/21/14 12/26/21 History Tamsulosin [Flomax] 0.4 mg PO DAILY 07/21/14 12/26/21 History Omeprazole 20 mg PO DAILY 01/11/21 12/26/21 History Atorvastatin [Lipitor] 10 mg PO HS 07/04/21 12/26/21 History Clobetasol Propionate [Temovate 1 applic TOPICAL BID 07/04/21 12/26/21 History 0.05% Cream] Aspirin EC [Ecotrin Low Dose] 81 mg PO DAILY 12/26/21 12/26/21 History Cholecalciferol [Vitamin D3 (25 25 mcg PO DAILY 12/26/21 12/26/21 History Mcg = 1000 Iu)] Doxycycline Hyclate 100 mg PO DIRECTED 12/26/21 12/26/21 History Losartan/Hydrochlorothiazide 1 tab PO DAILY 12/26/21 12/26/21 History [Losartan-Hctz 100-25 mg Tab] Magnesium Oxide [Magnesium] 500 mg PO BID 12/26/21 12/26/21 History Allergies Allergy/AdvReac Type Severity Reaction Status Date / Time peanut Allergy Rash/Hives Verified 12/26/21 22:12 dutasteride [From Avodart] AdvReac Rapid Verified 12/26/21 22:12 Heart Rate morphine AdvReac PASS OUT Verified 12/26/21 22:12 venom-honey bee AdvReac PASS OUT Verified 12/26/21 22:12 [bee venom (honey bee)] Physical Exam Vitals: Vital Signs Temp Pulse Resp BP Pulse Ox 12/29/21 08:00 82 16 12/29/21 07:32 98.2 F 82 16 147/60 92 L 12/29/21 02:13 98.5 F 77 18 146/64 93 L 12/28/21 20:11 70 16 12/28/21 20:00 98.2 F 70 17 106/65 95 12/28/21 14:00 98.0 F 73 14 147/41 94 L Intake and Output 12/28/21 12/29/21 12/29/21 22:59 06:59 14:59 Intake Total 1080 Balance 1080 Intake: Oral 1080 Other: Voiding Method Toilet Toilet # Voids 3 Patient is awake, comfortable, mild tachypnea noted Alert oriented 3 Examination of the heart S1 and S2 Examination of the lungs bilateral breath sounds are heard Abdomen is soft nontender Examination of the lower extremities shows no significant edema MOLDED [employer] C[employer] exam grossly intact Results - Lab Results Most recent lab results Calcium 8.2 mg/dL (8.7-10.3) L 12/29/21 06:29 Magnesium 1.6 mg/dL (1.6-2.3) 12/26/21 20:30 12/29/21 06:29 12/29/21 06:29 Assessment and Plan Assessment: 1. Hyponatremia, hypervolemic. DC IV fluids and IV Lasix 1 Check urine sodium and urine osmolality as well as 2. CHF, acute, diastolic with ejection fraction 50-55% 3. Anemia with significant iron deficiency rule out GI bleed. Receiving IV iron 4. Coronary artery disease with previous history of coronary stents 5. Hypertension maintained on agitans receptor blockers Plan: Agree with discontinuation of IV fluids IV Lasix 1 Check urine sodium and urine osmolality Patient is encouraged to increase oral intake of protein. Avoid high salt containing foods Repeat sodium this evening. Thank you for the consultation. We'll continue to follow the patient with you during his hospitalization.
[2021-12-29] MEDS ORDERED: FUROSEMIDE 10 MG/ML 4 ML VIAL IV STA (12:04)
--- NOTE | 2021-12-29 13:08 | P.PN ---
Subjective Progress Note Date: 12/29/21 CHIEF COMPLAINT: Anemia HISTORY OF PRESENT ILLNESS: Patient has symptomatic anemia with shortness of breath and weakness. He has been receiving IV iron. He denies any blood in his stools. Denies any nausea vomiting. Denies any abdominal pain. Hemoglobin is stable at 8.9. He is being seen by nephrology regarding his hyponatremia. Afebrile sodium 128 BUN 10.7 creatinine 0.9 Patient seen and examined with Dr. santos PHYSICAL EXAM: VITAL SIGNS: Reviewed. GENERAL: Well-developed in no acute distress. ABDOMEN: Soft. Nondistended. Nontender. NEUROLOGIC: Alert and oriented. Cranial nerves II through XII grossly intact. ASSESSMENT: 1. Symptomatic anemia no active bleeding 2. Iron deficiency anemia 3. Hyponatremia PLAN: -Patient is scheduled for EGD and colonoscopy on 01/01/[address] santos. Patient can have endoscopies done outpatient if discharged before Saturday -Continue to monitor hemoglobin -Hyponatremia management per nephrology Physician Vice President Of Academic Affairs note has been reviewed by physician. Signing provider agrees with the documented findings, assessment, and plan of care. Objective - Vital Signs Vital signs: Vital Signs Temp 98.2 F 12/29/21 07:32 Pulse 82 12/29/21 08:00 Resp 16 12/29/21 08:00 BP 147/60 12/29/21 07:32 Pulse Ox 92 L 12/29/21 07:32 FiO2 Intake & Output 12/28/21 12/29/21 12/29/21 18:59 06:59 18:59 Intake Total 1080 Balance 1080 Intake: Oral 1080 Other: Voiding Method Toilet Toilet # Voids 3 - Labs CBC & Chem 7: 12/29/21 06:29 12/29/21 06:29 Labs: Abnormal Lab Results - Last 24 Hours (Table) 12/29/21 12/29/21 Range/Units 06:29 06:29 RBC 3.64 L (4.40-5.60) X 10*6/uL Hgb 8.9 L (13.0-17.0) g/dL Hct 29.4 L (39.6-50.0) % MCH 24.5 L (27.0-32.0) pg MCHC 30.3 L (32.0-37.0) g/dL RDW 16.3 H (11.5-14.5) % Plt Count 442 H (140-440) X 10*3/uL MPV 8.8 L (9.5-12.2) fL Monocytes # 1.09 H (0.20-1.00) X 10*3/uL Eosinophils # 0.64 H (0.04-0.35) X 10*3/uL Sodium 128 L (135-145) mmol/L Chloride 94 L (96-109) mmol/L BUN/Creatinine Ratio 11.89 L (12.00-20.00) Ratio Calcium 8.2 L (8.7-10.3) mg/dL Total Protein 5.1 L (6.2-8.2) g/dL Albumin 2.9 L (3.8-4.9) g/dL Albumin/Globulin Ratio 1.32 L (1.60-3.17) g/dL
--- NOTE | 2021-12-29 16:30 | P.PN ---
Subjective Patient seen and examined at bedside patient denies chest pain shortness of breath nausea vomiting fevers or chills. Patient's sodium is still low as a result nephrology wants to keep him another day to further follow. Objective - Vital Signs Vital signs: Vital Signs Temp 97.6 F 12/29/21 14:30 Pulse 75 12/29/21 14:30 Resp 14 12/29/21 14:30 BP 168/79 12/29/21 14:30 Pulse Ox 97 12/29/21 14:30 FiO2 Intake & Output 12/28/21 12/29/21 12/29/21 18:59 06:59 18:59 Intake Total 1080 Balance 1080 Intake: Oral 1080 Other: Voiding Method Toilet Toilet # Voids 3 - Exam General: [non toxic], [no distress], [appears at stated age] Derm: [warm], [dry] Head: [atraumatic], [normocephalic], [symmetric] Eyes: [EOMI], [no lid lag], [anicteric sclera] Mouth: [no lip lesion], [mucus membranes moist] Cardiovascular: [S1S2 reg], [no murmur], [positive posterior tibial pulse bilateral], Lungs: [CTA bilateral], [no rhonchi, no rales] , [no accessory muscle use] Abdominal: [soft], [ nontender to palpation], [no guarding], [no appreciable organomegaly] Ext: [no gross muscle atrophy], [no edema], [no contractures] Neuro: [ CN II-XI grossly intact], [no focal neuro deficits] Psych: [Alert], [oriented], [appropriate affect - Labs CBC & Chem 7: 12/29/21 06:29 12/29/21 06:29 Labs: Abnormal Lab Results - Last 24 Hours (Table) 12/29/21 12/29/21 Range/Units 06:29 06:29 RBC 3.64 L (4.40-5.60) X 10*6/uL Hgb 8.9 L (13.0-17.0) g/dL Hct 29.4 L (39.6-50.0) % MCH 24.5 L (27.0-32.0) pg MCHC 30.3 L (32.0-37.0) g/dL RDW 16.3 H (11.5-14.5) % Plt Count 442 H (140-440) X 10*3/uL MPV 8.8 L (9.5-12.2) fL Monocytes # 1.09 H (0.20-1.00) X 10*3/uL Eosinophils # 0.64 H (0.04-0.35) X 10*3/uL Sodium 128 L (135-145) mmol/L Chloride 94 L (96-109) mmol/L BUN/Creatinine Ratio 11.89 L (12.00-20.00) Ratio Calcium 8.2 L (8.7-10.3) mg/dL Total Protein 5.1 L (6.2-8.2) g/dL Albumin 2.9 L (3.8-4.9) g/dL Albumin/Globulin Ratio 1.32 L (1.60-3.17) g/dL Assessment and Plan Assessment: Symptomatic Acute anemia, unknown underlying cause No evidence of GI bleeding Hematology recommendations appreciated Echocardiogram reveals an ejection fraction of 50-55% with mild aortic stenosis Fecal occult blood test negative Most recent colonoscopy over 10 years ago Patient is scheduled to have a colonoscopy this Saturday if he is not discharged Persistent cough since Covid infection 6 months ago Patient reports postnasal drip Consider outpatient follow-up with ENT Mucinex twice a day Poorly controlled hypertension secondary to noncompliance with medications at home Resume home blood pressure medication losartan, hold hydrochlorothiazide due to hyponatremia Clonidine when necessary for systolic above 180 Hyponatremia improving but still at 128 Discontinue IV fluids to to elevated BNP Monitor renal function and sodium level Hold hydrochlorothiazide Nephrology following Repeat sodium levels in a.m. Chronic conditions Coronary artery disease status post stents TIA Hyperlipidemia BPH continue Flomax DVT prophylaxis mechanical Full code Time with Patient: Greater than 30 Discharge planning if cleared by nephrology to to hyponatremia. If patient is to stay throughout the weekend patient has a colonoscopy scheduled for surgery on Saturday. Otherwise EGD and colonoscopy can be done as an outpatient.
[2021-12-29] MEDS: ATORVASTATIN 10 MG TAB PO SCH (20:48)
[2021-12-30] MEDS: LOSARTAN 50 MG TAB PO SCH (08:54)
[2021-12-30] MEDS: ASPIRIN 81 MG PO SCH (08:54)
[2021-12-30] MEDS: MAGNESIUM OXIDE 400 MG TAB PO SCH ×2 (08:54→20:39)
[2021-12-30] MEDS: PARoxetine 20 MG TAB PO SCH (08:54)
[2021-12-30] MEDS: guaiFENesin 600 MG TABLET.ER PO SCH ×2 (08:54→20:39)
[2021-12-30] MEDS: PANTOPRAZOLE 40 MG TABLET PO SCH (08:54)
[2021-12-30] MEDS: TAMSULOSIN 0.4 MG CAP.ER.24H PO SCH (08:54)
[2021-12-30] MEDS: SODIUM FERRIC GLUCONAT-SUCROSE 125 MG in SODIUM CHLORIDE 0.9% 100 ML IVPB SCH (08:55)
--- NOTE | 2021-12-30 11:19 | P.PN ---
Subjective Patient is seen in follow-up for hyponatremia. Sodium level up to 128 yesterday. Received 1 dose of IV Lasix yesterday. Good urine output. Blood pressure stable. No vomiting or diarrhea. Oral intake fair. Vital signs are stable. General: Awake. No acute distress. HEENT: Head exam is unremarkable. LUNGS: Breath sounds decreased. HEART: Rate and Rhythm are regular. ABDOMEN: Soft, no distention. EXTREMITITES: Trace edema. Objective - Vital Signs Vital signs: Vital Signs Temp 97.8 F 12/30/21 07:53 Pulse 80 12/30/21 07:53 Resp 16 12/30/21 07:53 BP 137/70 12/30/21 07:53 Pulse Ox 93 L 12/30/21 07:53 FiO2 Intake & Output 12/29/21 12/30/21 12/30/21 18:59 06:59 18:59 Other: Voiding Method Toilet # Voids 2 - Labs CBC & Chem 7: 12/29/21 06:29 12/29/21 06:29 Labs: Abnormal Lab Results - Last 24 Hours (Table) 12/29/21 Range/Units 06:29 Sodium 128 L (135-145) mmol/L Chloride 94 L (96-109) mmol/L BUN/Creatinine Ratio 11.89 L (12.00-20.00) Ratio Calcium 8.2 L (8.7-10.3) mg/dL Total Protein 5.1 L (6.2-8.2) g/dL Albumin 2.9 L (3.8-4.9) g/dL Albumin/Globulin Ratio 1.32 L (1.60-3.17) g/dL Assessment and Plan Plan: Assessment: 1. Hypervolemic hyponatremia. Was also on thiazide diuretic prior to admission. Status post IV Lasix yesterday. Sodium level 128 yesterday. Morning labs pending. Urine sodium 107 and urine osmolality 280. TSH normal. Denies history of malignancy. 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 2. Acute on chronic diastolic CHF with mild mitral regurgitation and pulmonary hypertension. 3. Anemia with iron deficiency. Status post IV iron. Possible colonoscopy this admission. Also seen by hematology. 4. History of coronary artery disease. 5. Benign hypertension. Stable. Plan: Encouraged oral intake. Avoid thiazide diuretics. Follow-up morning labs.
--- NOTE | 2021-12-30 11:21 | P.PN ---
Subjective Progress Note Date: 12/30/21 Principal diagnosis: Anemia 89-year-old male doing well today. Patient has no evidence of active bleeding. Hemoglobin is stable. Plans for upper and lower endoscopy on Saturday. Objective - Vital Signs Vital signs: Vital Signs Temp 97.8 F 12/30/21 07:53 Pulse 80 12/30/21 07:53 Resp 16 12/30/21 07:53 BP 137/70 12/30/21 07:53 Pulse Ox 93 L 12/30/21 07:53 FiO2 Intake & Output 12/29/21 12/30/21 12/30/21 18:59 06:59 18:59 Other: Voiding Method Toilet # Voids 2 - Exam Abdomen: Soft, nontender, nondistended - Labs CBC & Chem 7: 12/29/21 06:29 12/29/21 06:29 Assessment and Plan (1) Symptomatic anemia Narrative/Plan: patient doing well today. Plan for upper and lower endoscopy on Saturday either as inpatient or outpatient. Current Visit: Yes Status: Acute Code(s): D64.9 - ANEMIA, UNSPECIFIED SNOMED Code(s): 680455687
[2021-12-30 11:35] LABS: Basophils # (A) 0.04 X 10*3/uL (0.00-0.10); Basophils % (A) 0.6 %; Eosinophils # (A) 0.53 X 10*3/uL (0.04-0.35); Eosinophils % (A) 8.3 %; HCT 27.8 % (39.6-50.0); HGB 8.7 g/dL (13.0-17.0); Immature Grans, Automated 0.6 %; Lymphocytes # (A) 0.92 X 10*3/uL (0.90-5.00); Lymphocytes % (A) 14.4 %; MCH 24.9 pg (27.0-32.0); MCHC 31.3 g/dL (32.0-37.0); MCV 79.4 fL (80.0-97.0); Mean Platelet Volume 8.7 fL (9.5-12.2); Monocytes # (A) 0.97 X 10*3/uL (0.20-1.00); Monocytes % (A) 15.2 %; NRBC Per 100 WBC 0 /100 WBCS (0.0-0.0); Neutrophils % (A) 60.9 %; Platelet Count 497 X 10*3/uL (140-440); RDW 16.7 % (11.5-14.5)
[2021-12-30 12:09] LABS: African American GFR (CKD) 87.5 (60.0-200.0); Albumin 2.8 g/dL (3.8-4.9); Albumin/Globulin Ratio 1.33 (1.60-3.17); Anion Gap 10.3 mmol/L (10.00-18.00); BUN/Creat Ratio 13.67 Ratio (12.00-20.00); Blood Urea Nitrogen 12.3 mg/dL (9.0-27.0); Calcium 8.2 mg/dL (8.7-10.3); Carbon Dioxide 22.7 mmol/L (20.0-27.5); Globulin 2.1 g/dL (1.6-3.3); Non-African American GFR(CKD) 75.5 (60.0-200.0); Potassium 4.3 mmol/L (3.5-5.5); Total Bilirubin 0.6 mg/dL (0.30-1.20); Total Protein 4.9 g/dL (6.2-8.2)
--- NOTE | 2021-12-30 13:28 | P.PN ---
Subjective Progress Note Date: 12/30/21 The patient was seen at bedside, no acute events overnight. He stated feeling a little better but not back to his baseline yet. Objective - Vital Signs Vital signs: Vital Signs Temp 97.8 F 12/30/21 07:53 Pulse 80 12/30/21 07:53 Resp 16 12/30/21 07:53 BP 137/70 12/30/21 07:53 Pulse Ox 93 L 12/30/21 07:53 FiO2 Intake & Output 12/29/21 12/30/21 12/30/21 18:59 06:59 18:59 Other: Voiding Method Toilet # Voids 2 - Exam General: [non toxic], [no distress], [appears at stated age] Derm: [warm], [dry] Head: [atraumatic], [normocephalic], [symmetric] Eyes: [EOMI], [no lid lag], [anicteric sclera] Mouth: [no lip lesion], [mucus membranes moist] Cardiovascular: [S1S2 reg], [no murmur], [positive posterior tibial pulse bilateral], Lungs: [CTA bilateral], [no rhonchi, no rales] , [no accessory muscle use] Abdominal: [soft], [ nontender to palpation], [no guarding], [no appreciable organomegaly] Ext: [no gross muscle atrophy], [no edema], [no contractures] Neuro: [ CN II-XI grossly intact], [no focal neuro deficits] Psych: [Alert], [oriented], [appropriate affect - Labs CBC & Chem 7: 12/30/21 07:29 12/30/21 07:29 Labs: Abnormal Lab Results - Last 24 Hours (Table) 12/30/21 12/30/21 12/30/21 Range/Units 07:29 07:29 11:55 RBC 3.50 L (4.40-5.60) X 10*6/uL Hgb 8.7 L (13.0-17.0) g/dL Hct 27.8 L (39.6-50.0) % MCV 79.4 L (80.0-97.0) fL MCH 24.9 L (27.0-32.0) pg MCHC 31.3 L (32.0-37.0) g/dL RDW 16.7 H (11.5-14.5) % Plt Count 497 H (140-440) X 10*3/uL MPV 8.7 L (9.5-12.2) fL Eosinophils # 0.53 H (0.04-0.35) X 10*3/uL Sodium 130 L (135-145) mmol/L Calcium 8.2 L (8.7-10.3) mg/dL Magnesium 1.5 L (1.6-2.3) mg/dL Total Protein 4.9 L (6.2-8.2) g/dL Albumin 2.8 L (3.8-4.9) g/dL Albumin/Globulin Ratio 1.33 L (1.60-3.17) g/dL Assessment and Plan Assessment: Symptomatic Acute anemia, unknown underlying cause No evidence of GI bleeding Hematology recommendations appreciated Echocardiogram reveals an ejection fraction of 50-55% with mild aortic stenosis Fecal occult blood test negative Most recent colonoscopy over 10 years ago Patient is scheduled to have a colonoscopy this Saturday per surgery Persistent cough since Covid infection 6 months ago Patient reports postnasal drip Consider outpatient follow-up with ENT Mucinex twice a day Poorly controlled hypertension secondary to noncompliance with medications at h ome Resume home blood pressure medication losartan, hold hydrochlorothiazide due to hyponatremia Clonidine when necessary for systolic above 180 Hyponatremia improving Discontinue IV fluids to to elevated BNP Monitor renal function and sodium level 130 Hold hydrochlorothiazide Nephrology following Repeat sodium levels in a.m. Chronic conditions Coronary artery disease status post stents TIA Hyperlipidemia BPH continue Flomax DVT prophylaxis mechanical Full code Time with Patient: Greater than 30 Discharge planning if cleared by nephrology to to hyponatremia. If patient is to stay throughout the weekend patient has a colonoscopy scheduled for surgery on Saturday. Otherwise EGD and colonoscopy can be done as an outpatient.
[2021-12-30] MEDS: SODIUM CHLORIDE 0.9% 1,000 ML IV SCH (14:07)
[2021-12-30] MEDS: ATORVASTATIN 10 MG TAB PO SCH (20:39)
[2021-12-31] MEDS: TAMSULOSIN 0.4 MG CAP.ER.24H PO SCH (08:07)
[2021-12-31] MEDS: LOSARTAN 50 MG TAB PO SCH (08:07)
[2021-12-31] MEDS: ASPIRIN 81 MG PO SCH (08:07)
[2021-12-31] MEDS: PANTOPRAZOLE 40 MG TABLET PO SCH (08:07)
[2021-12-31] MEDS: guaiFENesin 600 MG TABLET.ER PO SCH ×2 (08:08→21:21)
[2021-12-31] MEDS: MAGNESIUM OXIDE 400 MG TAB PO SCH ×2 (08:08→21:21)
[2021-12-31] MEDS: PARoxetine 20 MG TAB PO SCH (08:08)
[2021-12-31] MEDS ORDERED: PEG 3350 (236 GM/BTL) + LYTES 4,000 ML BOTTLE PO ONE (09:00)
[2021-12-31 10:18] LABS: Basophils # (A) 0.04 X 10*3/uL (0.00-0.10); Basophils % (A) 0.7 %; Eosinophils # (A) 0.58 X 10*3/uL (0.04-0.35); Eosinophils % (A) 10.7 %; HCT 24.4 % (39.6-50.0); HGB 7.5 g/dL (13.0-17.0); Immature Grans, Automated 0.7 %; Lymphocytes # (A) 0.77 X 10*3/uL (0.90-5.00); Lymphocytes % (A) 14.2 %; MCH 24.9 pg (27.0-32.0); MCHC 30.7 g/dL (32.0-37.0); MCV 81.1 fL (80.0-97.0); Mean Platelet Volume 8.8 fL (9.5-12.2); Monocytes # (A) 0.99 X 10*3/uL (0.20-1.00); Monocytes % (A) 18.3 %; NRBC Per 100 WBC 0 /100 WBCS (0.0-0.0); Neutrophils % (A) 55.4 %; Platelet Count 409 X 10*3/uL (140-440); RBC 3.01 X 10*6/uL (4.40-5.60); WBC 5.42 X 10*3/uL (4.50-10.00)
[2021-12-31] MEDS ORDERED: MAGNESIUM SULFATE-D5W PMX 1 GM in DEXTROSE/WATER 1 100ML.BAG IVPB ONE (10:20)
--- NOTE | 2021-12-31 10:21 | P.PN ---
Subjective Patient is seen in follow-up for hyponatremia. Sodium level up to 130 yesterday. Good urine output. Blood pressure high. No vomiting or diarrhea. Oral intake fair. Vital signs are stable. General: Awake. No acute distress. HEENT: Head exam is unremarkable. LUNGS: Breath sounds decreased. HEART: Rate and Rhythm are regular. ABDOMEN: Soft, no distention. EXTREMITITES: Trace edema. Objective - Vital Signs Vital signs: Vital Signs Temp 98.1 F 12/31/21 08:00 Pulse 69 12/31/21 08:00 Resp 19 12/31/21 08:00 BP 188/79 12/31/21 08:00 Pulse Ox 95 12/31/21 08:00 FiO2 Intake & Output 12/30/21 12/31/21 12/31/21 18:59 06:59 18:59 Other: # Voids 3 3 - Labs CBC & Chem 7: 12/30/21 07:29 12/30/21 07:29 Labs: Abnormal Lab Results - Last 24 Hours (Table) 12/30/21 12/30/21 12/30/21 Range/Units 07:29 07:29 11:55 RBC 3.50 L (4.40-5.60) X 10*6/uL Hgb 8.7 L (13.0-17.0) g/dL Hct 27.8 L (39.6-50.0) % MCV 79.4 L (80.0-97.0) fL MCH 24.9 L (27.0-32.0) pg MCHC 31.3 L (32.0-37.0) g/dL RDW 16.7 H (11.5-14.5) % Plt Count 497 H (140-440) X 10*3/uL MPV 8.7 L (9.5-12.2) fL Eosinophils # 0.53 H (0.04-0.35) X 10*3/uL Sodium 130 L (135-145) mmol/L Calcium 8.2 L (8.7-10.3) mg/dL Magnesium 1.5 L (1.6-2.3) mg/dL Total Protein 4.9 L (6.2-8.2) g/dL Albumin 2.8 L (3.8-4.9) g/dL Albumin/Globulin Ratio 1.33 L (1.60-3.17) g/dL Assessment and Plan Plan: Assessment: 1. Hypervolemic hyponatremia. Was also on thiazide diuretic prior to admission. Status post IV Lasix this admission. Sodium level 130 yesterday. Morning labs pending. Urine sodium 107 and urine osmolality 280. TSH normal. Denies history of malignancy. 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 2. Acute on chronic diastolic CHF with mild mitral regurgitation and pulmonary hypertension. 3. Anemia with iron deficiency. Status post IV iron. Possible colonoscopy this admission. Also seen by hematology. 4. History of coronary artery disease. 5. Benign hypertension. Blood pressure high. 6. Hypomagnesemia from poor intake and diuresis. On oral magnesium oxide. Plan: Encouraged oral intake. Avoid thiazide diuretics. Add hydralazine 25 mg 3 times daily. Hold for systolic blood pressure less than 125. Follow-up morning labs.
[2021-12-31] MEDS: hydrALAZINE HCL 25 MG TAB PO SCH ×3 (10:43→21:21)
[2021-12-31 10:54] LABS: African American GFR (CKD) 90.7 (60.0-200.0); Anion Gap 8.6 mmol/L (10.00-18.00); BUN/Creat Ratio 12.64 Ratio (12.00-20.00); Blood Urea Nitrogen 10.4 mg/dL (9.0-27.0); Magnesium 1.7 mg/dL (1.5-2.4); Non-African American GFR(CKD) 78.3 (60.0-200.0); Potassium 4.6 mmol/L (3.5-5.5)
--- NOTE | 2021-12-31 11:39 | P.PN ---
Subjective Progress Note Date: 12/31/21 Principal diagnosis: Anemia Patient doing well today. No bloody stools or melanotic stools. Hemoglobin 7.5 from 8.7. Objective - Vital Signs Vital signs: Vital Signs Temp 98.1 F 12/31/21 08:00 Pulse 69 12/31/21 08:00 Resp 19 12/31/21 08:00 BP 188/79 12/31/21 08:00 Pulse Ox 95 12/31/21 08:00 FiO2 Intake & Output 12/30/21 12/31/21 12/31/21 18:59 06:59 18:59 Other: # Voids 3 3 - Exam Abdomen: Soft, nontender, nondistended - Labs CBC & Chem 7: 12/31/21 06:11 12/31/21 06:11 Labs: Abnormal Lab Results - Last 24 Hours (Table) 12/30/21 12/30/21 12/31/21 Range/Units 07:29 11:55 06:11 RBC 3.01 L (4.40-5.60) X 10*6/uL Hgb 7.5 L (13.0-17.0) g/dL Hct 24.4 L (39.6-50.0) % MCH 24.9 L (27.0-32.0) pg MCHC 30.7 L (32.0-37.0) g/dL RDW 17.0 H (11.5-14.5) % MPV 8.8 L (9.5-12.2) fL Lymphocytes # 0.77 L (0.90-5.00) X 10*3/uL Eosinophils # 0.58 H (0.04-0.35) X 10*3/uL Sodium 130 L (135-145) mmol/L Anion Gap (10.00-18.00) mmol/L Calcium 8.2 L (8.7-10.3) mg/dL Magnesium 1.5 L (1.6-2.3) mg/dL Total Protein 4.9 L (6.2-8.2) g/dL Albumin 2.8 L (3.8-4.9) g/dL Albumin/Globulin Ratio 1.33 L (1.60-3.17) g/dL 12/31/21 Range/Units 06:11 RBC (4.40-5.60) X 10*6/uL Hgb (13.0-17.0) g/dL Hct (39.6-50.0) % MCH (27.0-32.0) pg MCHC (32.0-37.0) g/dL RDW (11.5-14.5) % MPV (9.5-12.2) fL Lymphocytes # (0.90-5.00) X 10*3/uL Eosinophils # (0.04-0.35) X 10*3/uL Sodium 130 L (135-145) mmol/L Anion Gap 8.60 L (10.00-18.00) mmol/L Calcium 8.0 L (8.7-10.3) mg/dL Magnesium (1.6-2.3) mg/dL Total Protein (6.2-8.2) g/dL Albumin (3.8-4.9) g/dL Albumin/Globulin Ratio (1.60-3.17) g/dL Assessment and Plan (1) Symptomatic anemia Narrative/Plan: Patient without new complaints. No active bleeding. Hemoglobin 7.5. Patient will have upper and lower endoscopy tomorrow. Current Visit: Yes Status: Acute Code(s): D64.9 - ANEMIA, UNSPECIFIED SNOMED Code(s): 991532779
--- NOTE | 2021-12-31 13:40 | P.PN ---
Subjective Progress Note Date: 12/31/21 The patient was seen at bedside, no acute events overnight. He stated feeling a little better but not back to his baseline yet. Objective - Vital Signs Vital signs: Vital Signs Temp 98.1 F 12/31/21 08:00 Pulse 69 12/31/21 08:00 Resp 19 12/31/21 08:00 BP 188/79 12/31/21 08:00 Pulse Ox 95 12/31/21 08:00 FiO2 Intake & Output 12/30/21 12/31/21 12/31/21 18:59 06:59 18:59 Other: # Voids 3 3 - Exam General: [non toxic], [no distress], [appears at stated age] Derm: [warm], [dry] Head: [atraumatic], [normocephalic], [symmetric] Eyes: [EOMI], [no lid lag], [anicteric sclera] Mouth: [no lip lesion], [mucus membranes moist] Cardiovascular: [S1S2 reg], [no murmur], [positive posterior tibial pulse bilateral], Lungs: [CTA bilateral], [no rhonchi, no rales] , [no accessory muscle use] Abdominal: [soft], [ nontender to palpation], [no guarding], [no appreciable organomegaly] Ext: [no gross muscle atrophy], [no edema], [no contractures] Neuro: [ CN II-XI grossly intact], [no focal neuro deficits] Psych: [Alert], [oriented], [appropriate affect - Labs CBC & Chem 7: 12/31/21 06:11 12/31/21 06:11 Labs: Abnormal Lab Results - Last 24 Hours (Table) 12/31/21 12/31/21 Range/Units 06:11 06:11 RBC 3.01 L (4.40-5.60) X 10*6/uL Hgb 7.5 L (13.0-17.0) g/dL Hct 24.4 L (39.6-50.0) % MCH 24.9 L (27.0-32.0) pg MCHC 30.7 L (32.0-37.0) g/dL RDW 17.0 H (11.5-14.5) % MPV 8.8 L (9.5-12.2) fL Lymphocytes # 0.77 L (0.90-5.00) X 10*3/uL Eosinophils # 0.58 H (0.04-0.35) X 10*3/uL Sodium 130 L (135-145) mmol/L Anion Gap 8.60 L (10.00-18.00) mmol/L Calcium 8.0 L (8.7-10.3) mg/dL Assessment and Plan Assessment: Symptomatic Acute anemia, unknown underlying cause No evidence of GI bleeding Hematology recommendations appreciated Echocardiogram reveals an ejection fraction of 50-55% with mild aortic stenosis Fecal occult blood test negative Most recent colonoscopy over 10 years ago Patient is scheduled to have a colonoscopy this Saturday per surgery Asymptomatic long runs of PVCs Patient denies having any symptoms Physical exam within normal limits We'll continue to monitor and consider consulting cardiology Persistent cough since Covid infection 6 months ago Patient reports postnasal drip Consider outpatient follow-up with ENT Mucinex twice a day Poorly controlled hypertension secondary to noncompliance with medications at home Resume home blood pressure medication losartan, hold hydrochlorothiazide due to hyponatremia Clonidine when necessary for systolic above 180 Hyponatremia improving Discontinue IV fluids to to elevated BNP Monitor renal function and sodium level 130 Hold hydrochlorothiazide Nephrology following Repeat sodium levels in a.m. Chronic conditions Coronary artery disease status post stents TIA Hyperlipidemia BPH continue Flomax DVT prophylaxis mechanical Full code Time with Patient: Greater than 30 Discharge planning if cleared by nephrology to to hyponatremia. Patient has an EGD and colonoscopy scheduled for surgery on Saturday.
[2021-12-31] MEDS ORDERED: TOLVAPTAN 15 MG 1/2 TABLET PO ONE (14:30)
[2021-12-31] MEDS: ATORVASTATIN 10 MG TAB PO SCH (21:21)
[2022-01-01 07:36] LABS: African American GFR (CKD) >90 (>60 ml/min/1.73 sqM); Anion Gap 5 mmol/L; Blood Urea Nitrogen 8 mg/dL (9-20); Calcium 7.8 mg/dL (8.4-10.2); Carbon Dioxide 26 mmol/L (22-30); Chloride 97 mmol/L (98-107); Glucose 93 mg/dL (74-99); Non-African American GFR(CKD) 78 (>60 ml/min/1.73 sqM); Potassium 4.1 mmol/L (3.5-5.1); Sodium 128 mmol/L (137-145)
[2022-01-01 07:55] LABS: Magnesium 1.8 mg/dL (1.6-2.3); Phosphorus 4.4 mg/dL (2.5-4.5)
[2022-01-01] MEDS: hydrALAZINE HCL 25 MG TAB PO SCH ×3 (08:34→21:01)
[2022-01-01] MEDS: TAMSULOSIN 0.4 MG CAP.ER.24H PO SCH (08:34)
[2022-01-01] MEDS: PARoxetine 20 MG TAB PO SCH (08:34)
[2022-01-01] MEDS: MAGNESIUM OXIDE 400 MG TAB PO SCH ×2 (08:34→21:01)
[2022-01-01] MEDS: LOSARTAN 50 MG TAB PO SCH (08:35)
[2022-01-01] MEDS: PANTOPRAZOLE 40 MG TABLET PO SCH (08:35)
[2022-01-01] MEDS: ASPIRIN 81 MG PO SCH (08:35)
[2022-01-01] MEDS: guaiFENesin 600 MG TABLET.ER PO SCH ×2 (08:35→21:01)
--- NOTE | 2022-01-01 09:58 | P.PN ---
Subjective Patient is seen in follow-up for hyponatremia. Sodium level up to 128. Currently nothing by mouth. Scheduled for endoscopy today. Good urine output. Blood pressure remains on the higher side. No vomiting or diarrhea. Vital signs are stable. General: Awake. No acute distress. HEENT: Head exam is unremarkable. LUNGS: Breath sounds decreased. HEART: Rate and Rhythm are regular. ABDOMEN: Soft, no distention. EXTREMITITES: Trace edema. Objective - Vital Signs Vital signs: Vital Signs Temp 98.5 F 01/01/22 07:37 Pulse 85 01/01/22 07:37 Resp 16 01/01/22 07:37 BP 177/85 01/01/22 07:37 Pulse Ox 95 01/01/22 07:37 FiO2 Intake & Output 12/31/21 01/01/22 01/01/22 18:59 06:59 18:59 Other: # Voids 3 3 1 # Bowel Movements 1 - Labs CBC & Chem 7: 12/31/21 06:11 01/01/22 06:44 Labs: Abnormal Lab Results - Last 24 Hours (Table) 12/31/21 12/31/21 01/01/22 Range/Units 06:11 06:11 06:44 RBC 3.01 L (4.40-5.60) X 10*6/uL Hgb 7.5 L (13.0-17.0) g/dL Hct 24.4 L (39.6-50.0) % MCH 24.9 L (27.0-32.0) pg MCHC 30.7 L (32.0-37.0) g/dL RDW 17.0 H (11.5-14.5) % MPV 8.8 L (9.5-12.2) fL Lymphocytes # 0.77 L (0.90-5.00) X 10*3/uL Eosinophils # 0.58 H (0.04-0.35) X 10*3/uL Sodium 130 L 128 L (135-145) mmol/L Chloride 97 L (98-107) mmol/L Anion Gap 8.60 L (10.00-18.00) mmol/L BUN 8 L (9-20) mg/dL Calcium 8.0 L 7.8 L (8.7-10.3) mg/dL Assessment and Plan Plan: Assessment: 1. Hypervolemic hyponatremia. Was also on thiazide diuretic prior to admission. Status post IV Lasix and Samsca this admission. Sodium level 128. Urine sodium 107 and urine osmolality 280. TSH normal. Denies history of malignancy. 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 2. Acute on chronic diastolic CHF with mild mitral regurgitation and pulmonary hypertension. 3. Anemia with iron deficiency. Status post IV iron. Endoscopy today. Also seen by hematology. 4. History of coronary artery disease. 5. Benign hypertension. Blood pressure high. 6. Hypomagnesemia from poor intake and diuresis. On oral magnesium oxide. Plan: Encouraged oral intake. Will add fluid restriction once diet resumed. Avoid thiazide diuretics. Increase dose of hydralazine. Repeat labs in the morning. Will repeat Samsca sodium not improved tomorrow.
[2022-01-01 10:37] LABS: Basophils # (A) 0.03 X 10*3/uL (0.00-0.10); Basophils % (A) 0.7 %; Eosinophils # (A) 0.36 X 10*3/uL (0.04-0.35); HCT 23.9 % (39.6-50.0); HGB 7.6 g/dL (13.0-17.0); Immature Grans, Automated 0.7 %; Lymphocytes # (A) 0.68 X 10*3/uL (0.90-5.00); Lymphocytes % (A) 15.2 %; MCH 25.2 pg (27.0-32.0); MCHC 31.8 g/dL (32.0-37.0); MCV 79.4 fL (80.0-97.0); Mean Platelet Volume 8.6 fL (9.5-12.2); Monocytes # (A) 0.84 X 10*3/uL (0.20-1.00); Monocytes % (A) 18.8 %; NRBC Per 100 WBC 0 /100 WBCS (0.0-0.0); Neutrophils # (A) 2.54 X 10*3/uL (1.80-7.70); Neutrophils % (A) 56.6 %; Platelet Count 435 X 10*3/uL (140-440); RBC 3.01 X 10*6/uL (4.40-5.60); RDW 17.8 % (11.5-14.5); WBC 4.48 X 10*3/uL (4.50-10.00)
[2022-01-01] MEDS ORDERED: LIDOCAINE 2% INJ 20 MG/ML (2 ML VIAL) ONE (11:41)
[2022-01-01] MEDS ORDERED: PROPOFOL 10 MG/ML 20 ML VIAL IV ONE (11:41)
[2022-01-01] MEDS ORDERED: SODIUM CHLORIDE 0.9% 500 ML 500 ML IV ONE (11:45)
--- NOTE | 2022-01-01 12:06 | P.OP ---
Date of Procedure: 01/01/22 Preoperative Diagnosis: GI bleed Postoperative Diagnosis: antral gastritis Diverticulosis Hemorrhoids Tortuous colon Procedure(s) Performed: colonoscopy Anesthesia: MAC Surgeon: Joel Eaton Pathology: other (antral) Condition: stable Disposition: PACU Description of Procedure: the patient's placed on the endoscopy table in the lateral position. He received IV sedation. The gastroscope placed oropharynx passed in the esophagus into the stomach. Scope was placed through the pylorus. The first and second portion of the duodenum appeared normal. Scope was then brought back the antrum was mildly inflamed. A biopsies performed. The scope was then retroflexed and remainder of the stomach appeared normal. The GE junction was at 40 cm. The distal esophagus appeared normal. Proximal esophagus normal. Scope withdrawn for patient. There is no evidence of any upper GI bleed. Next digital rectal exam was performed. This revealed external hemorrhoids. Flexible colonoscope was then placed patient anus and passed with colon. The colon was very tortuous. Scope could not be advanced beyond the hepatic flexure secured tortuous valve. This point scope withdrawn. There were diverticular changes of the transverse colon. There is more diverticula changes noted in the descending and sigmoid colon. The scope was then brought back the rectum this appeared normal. Scope withdrawn for patient. There is no evidence of any GI bleed. Patient was performed. Tthe patient was scheduled for a barium enema to evaluate the right colon.
--- NOTE | 2022-01-01 13:34 | P.PN ---
Subjective Progress Note Date: 01/01/22 Principal diagnosis: iron def anemia In f/u today pt states he is feeling good, no bleeding, pending endoscopy today. He is anxious to go home Objective - Vital Signs Vital signs: Vital Signs Temp 98.5 F 01/01/22 07:37 Pulse 85 01/01/22 07:37 Resp 16 01/01/22 07:37 BP 177/85 01/01/22 07:37 Pulse Ox 95 01/01/22 07:37 FiO2 Intake & Output 12/31/21 01/01/22 01/01/22 18:59 06:59 18:59 Intake Total 300 Balance 300 Intake: IV 300 Other: # Voids 3 3 1 # Bowel Movements 1 - Constitutional General appearance: Present: average body habitus, cooperative, no acute distress - EENT Eyes: Present: anicteric sclerae, EOMI ENT: Present: hearing grossly normal - Respiratory Details: respirations even and unlabored at rest - Peripheral edema leg Peripheral Edema: bilateral: None - Integumentary Integumentary: Present: normal - Neurologic Neurologic: Present: CNII-XII intact (grossly) - Musculoskeletal Musculoskeletal: Present: strength equal bilaterally - Psychiatric Psychiatric: Present: A&O x's 3, appropriate affect, intact judgment & insight - Labs CBC & Chem 7: 01/01/22 06:44 01/01/22 06:44 Labs: Abnormal Lab Results - Last 24 Hours (Table) 01/01/22 01/01/22 Range/Units 06:44 06:44 WBC 4.48 L (4.50-10.00) X 10*3/uL RBC 3.01 L (4.40-5.60) X 10*6/uL Hgb 7.6 L (13.0-17.0) g/dL Hct 23.9 L (39.6-50.0) % MCV 79.4 L (80.0-97.0) fL MCH 25.2 L (27.0-32.0) pg MCHC 31.8 L (32.0-37.0) g/dL RDW 17.8 H (11.5-14.5) % MPV 8.6 L (9.5-12.2) fL Lymphocytes # 0.68 L (0.90-5.00) X 10*3/uL Eosinophils # 0.36 H (0.04-0.35) X 10*3/uL Sodium 128 L (137-145) mmol/L Chloride 97 L (98-107) mmol/L BUN 8 L (9-20) mg/dL Calcium 7.8 L (8.4-10.2) mg/dL Assessment and Plan (1) Microcytic hypochromic anemia Current Visit: Yes Status: Chronic Priority: High Code(s): D50.9 - IRON DEFICIENCY ANEMIA, UNSPECIFIED SNOMED Code(s): 32801867 Plan: Chart review reveals anemia has been a progressive thing over at least the last 6 months-including hychromasia and microcytosis. Patient denied any unusual events or new medication in the last 6 months, Covid infection was not severe. Iron studies reviewed, pt does have iron def. IV iron given, ordered one more dose for today. GI work up done today. F/U with Hem for lab monitoring and additional iron as needed. Appt in DC plan. No other nutritional deficiencies seen.
[2022-01-01] MEDS ORDERED: SODIUM FERRIC GLUCONAT-SUCROSE 125 MG in SODIUM CHLORIDE 0.9% 100 ML IVPB ONE (13:45)
--- NOTE | 2022-01-01 14:43 | P.PN ---
Subjective Patient seen and examined this morning at bedside. Patient was awaiting his EGD and colonoscopy. Hemoglobin is stable at 7.6 today with no acute GI bleeding. Patient has no questions or concerns at this time. Patient denied chest pain shows breath nausea vomiting fevers or chills Objective - Vital Signs Vital signs: Vital Signs Temp 98.5 F 01/01/22 07:37 Pulse 85 01/01/22 07:37 Resp 16 01/01/22 07:37 BP 177/85 01/01/22 07:37 Pulse Ox 95 01/01/22 07:37 FiO2 Intake & Output 12/31/21 01/01/22 01/01/22 18:59 06:59 18:59 Intake Total 300 Balance 300 Intake: IV 300 Other: # Voids 3 3 1 # Bowel Movements 1 - Exam General: [non toxic], [no distress], [appears at stated age] Derm: [warm], [dry] Head: [atraumatic], [normocephalic], [symmetric] Eyes: [EOMI], [no lid lag], [anicteric sclera] Mouth: [no lip lesion], [mucus membranes moist] Cardiovascular: [S1S2 reg], [no murmur], [positive posterior tibial pulse bilateral], Lungs: [CTA bilateral], [no rhonchi, no rales] , [no accessory muscle use] Abdominal: [soft], [ nontender to palpation], [no guarding], [no appreciable organomegaly] Ext: [no gross muscle atrophy], [no edema], [no contractures] Neuro: [ CN II-XI grossly intact], [no focal neuro deficits] Psych: [Alert], [oriented], [appropriate affect] - Labs CBC & Chem 7: 01/01/22 06:44 01/01/22 06:44 Labs: Abnormal Lab Results - Last 24 Hours (Table) 01/01/22 01/01/22 Range/Units 06:44 06:44 WBC 4.48 L (4.50-10.00) X 10*3/uL RBC 3.01 L (4.40-5.60) X 10*6/uL Hgb 7.6 L (13.0-17.0) g/dL Hct 23.9 L (39.6-50.0) % MCV 79.4 L (80.0-97.0) fL MCH 25.2 L (27.0-32.0) pg MCHC 31.8 L (32.0-37.0) g/dL RDW 17.8 H (11.5-14.5) % MPV 8.6 L (9.5-12.2) fL Lymphocytes # 0.68 L (0.90-5.00) X 10*3/uL Eosinophils # 0.36 H (0.04-0.35) X 10*3/uL Sodium 128 L (137-145) mmol/L Chloride 97 L (98-107) mmol/L BUN 8 L (9-20) mg/dL Calcium 7.8 L (8.4-10.2) mg/dL Assessment and Plan Assessment: Symptomatic Acute anemia, unknown underlying cause No evidence of GI bleeding Hematology recommendations appreciated Echocardiogram reveals an ejection fraction of 50-55% with mild aortic stenosis Fecal occult blood test negative EGD and colonoscopy completed today revealed gastritis with diverticulosis no ac ofe GI bleeding Awaiting barium study Persistent cough since Covid infection 6 months ago Patient reports postnasal drip outpatient follow-up with ENT Mucinex twice a day Poorly controlled hypertension secondary to noncompliance with medications at home Resume home blood pressure medication losartan, hold hydrochlorothiazide due to hyponatremia Clonidine when necessary for systolic above 180 Hyponatremia improving but still at 128 Monitor renal function and sodium level Hold hydrochlorothiazide Nephrology following Repeat sodium levels in a.m. Chronic conditions Coronary artery disease status post stents TIA Hyperlipidemia BPH continue Flomax DVT prophylaxis mechanical Full code Time with Patient: Greater than 30 Discharge planning in the a.m. once cleared by surgery and nephrology.
--- NOTE | 2022-01-01 14:53 | XR ---
EXAMINATION TYPE: XR KUB DATE OF EXAM: 01/01/2022 Comparison: CT 07/04/2021 Clinical History: 89-year-old male INCOMPLETE COLONOSCOPY Findings: There is excessive retained colonic and small bowel air throughout the abdomen and pelvis. This is ex cessive air for performance of barium enema exam. Impression: Excessive retained air throughout the colon and small bowel loops.
[2022-01-01] MEDS ORDERED: hydrALAZINE HCL 50 MG TAB PO SCH (16:00)
[2022-01-01] MEDS: ATORVASTATIN 10 MG TAB PO SCH (21:01)
[2022-01-02 07:48] VITALS: RESP 17
[2022-01-02] MEDS: LOSARTAN 50 MG TAB PO SCH (08:27)
[2022-01-02] MEDS: hydrALAZINE HCL 25 MG TAB PO SCH (08:27)
[2022-01-02] MEDS: guaiFENesin 600 MG TABLET.ER PO SCH (08:27)
[2022-01-02] MEDS: PARoxetine 20 MG TAB PO SCH (08:27)
[2022-01-02] MEDS: ASPIRIN 81 MG PO SCH (08:27)
[2022-01-02] MEDS: TAMSULOSIN 0.4 MG CAP.ER.24H PO SCH (08:27)
[2022-01-02] MEDS: PANTOPRAZOLE 40 MG TABLET PO SCH (08:27)
[2022-01-02] MEDS: MAGNESIUM OXIDE 400 MG TAB PO SCH (08:27)
--- NOTE | 2022-01-02 09:08 | XR ---
EXAMINATION TYPE: XR KUB DATE OF EXAM: 01/02/2022 COMPARISON: NONE HISTORY: Pain TECHNIQUE: Single supine KUB image of the abdomen is obtained FINDINGS: Moderate amount of air throughout the small and large bowel in a patient who is status post colonosco py. No convincing evidence for pneumoperitoneum. No unusual calcifications. The lung bases are clear. The osseous structures are intact. IMPRESSION: 1. Moderate amount of air throughout the small and large bowel in a patient who is status post colon oscopy.
[2022-01-02] MEDS ORDERED: SODIUM FERRIC GLUCONAT-SUCROSE 125 MG in SODIUM CHLORIDE 0.9% 100 ML IVPB ONE (09:30)
--- NOTE | 2022-01-02 10:11 | P.PN ---
Subjective Patient is seen in follow-up for hyponatremia. Sodium level 128 yesterday. Morning labs pending. Currently nothing by mouth. Underwent endoscopy yesterday which showed antral gastritis, diverticulosis, hemorrhoids and torturous colon. Went for a barium study this morning but couldn't be done. Good urine output. No vomiting or diarrhea. Vital signs are stable. General: Awake. No acute distress. HEENT: Head exam is unremarkable. LUNGS: Breath sounds decreased. HEART: Rate and Rhythm are regular. ABDOMEN: Soft, no distention. EXTREMITITES: Trace edema. Objective - Vital Signs Vital signs: Vital Signs Temp 99.2 F 01/02/22 07:47 Pulse 90 01/02/22 07:47 Resp 17 01/02/22 07:47 BP 185/77 01/02/22 07:47 Pulse Ox 97 01/02/22 07:47 FiO2 Intake & Output 01/01/22 01/02/22 01/02/22 18:59 06:59 18:59 Intake Total 300 Balance 300 Intake: IV 300 Other: # Voids 4 1 - Labs CBC & Chem 7: 01/01/22 06:44 01/01/22 06:44 Labs: Abnormal Lab Results - Last 24 Hours (Table) 01/01/22 Range/Units 06:44 WBC 4.48 L (4.50-10.00) X 10*3/uL RBC 3.01 L (4.40-5.60) X 10*6/uL Hgb 7.6 L (13.0-17.0) g/dL Hct 23.9 L (39.6-50.0) % MCV 79.4 L (80.0-97.0) fL MCH 25.2 L (27.0-32.0) pg MCHC 31.8 L (32.0-37.0) g/dL RDW 17.8 H (11.5-14.5) % MPV 8.6 L (9.5-12.2) fL Lymphocytes # 0.68 L (0.90-5.00) X 10*3/uL Eosinophils # 0.36 H (0.04-0.35) X 10*3/uL Assessment and Plan Plan: Assessment: 1. Hypervolemic hyponatremia. Was also on thiazide diuretic prior to admission. Status post IV Lasix and Samsca this admission. Sodium level 128 yesterday. Urine sodium 107 and urine osmolality 280. TSH normal. Denies history of malignancy. 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 2. Acute on chronic diastolic CHF with mild mitral regurgitation and pulmonary hypertension. 3. Anemia with iron deficiency. Status post IV iron. Endoscopy done January 01 that showed gastritis, hemorrhoids, diverticulosis and tortuous colon. Also seen by hematology. 4. History of coronary artery disease. 5. Benign hypertension. Blood pressure better. 6. Hypomagnesemia from poor intake and diuresis. On oral magnesium oxide. Improved. Plan: Encouraged oral intake. Will add fluid restriction once diet resumed. Avoid thiazide diuretics. Increase dose of hydralazine further. Follow-up morning labs. Will give Samsca if no improvement in sodium level today.
[2022-01-02 10:59] LABS: Basophils # (A) 0.03 X 10*3/uL (0.00-0.10); Basophils % (A) 0.6 %; Eosinophils # (A) 0.27 X 10*3/uL (0.04-0.35); Eosinophils % (A) 5.4 %; HCT 25.2 % (39.6-50.0); Immature Grans, Automated 0.6 %; Lymphocytes # (A) 0.68 X 10*3/uL (0.90-5.00); Lymphocytes % (A) 13.5 %; MCH 25.5 pg (27.0-32.0); MCHC 31.7 g/dL (32.0-37.0); MCV 80.3 fL (80.0-97.0); Mean Platelet Volume 8.4 fL (9.5-12.2); Monocytes # (A) 0.87 X 10*3/uL (0.20-1.00); Monocytes % (A) 17.3 %; NRBC Per 100 WBC 0 /100 WBCS (0.0-0.0); Neutrophils # (A) 3.14 X 10*3/uL (1.80-7.70); Neutrophils % (A) 62.6 %; Platelet Count 447 X 10*3/uL (140-440); RBC 3.14 X 10*6/uL (4.40-5.60); RDW 18.8 % (11.5-14.5); WBC 5.02 X 10*3/uL (4.50-10.00)
[2022-01-02 11:22] LABS: African American GFR (CKD) 91.8 (60.0-200.0); Albumin 2.6 g/dL (3.8-4.9); Albumin/Globulin Ratio 1.53 (1.60-3.17); Anion Gap 5.3 mmol/L (10.00-18.00); BUN/Creat Ratio 9.38 Ratio (12.00-20.00); Blood Urea Nitrogen 7.5 mg/dL (9.0-27.0); Calcium 8.1 mg/dL (8.7-10.3); Carbon Dioxide 26.7 mmol/L (20.0-27.5); Globulin 1.7 g/dL (1.6-3.3); Magnesium 2.1 mg/dL (1.5-2.4); Non-African American GFR(CKD) 79.2 (60.0-200.0); Potassium 4.7 mmol/L (3.5-5.5); Total Bilirubin 0.6 mg/dL (0.30-1.20); Total Protein 4.3 g/dL (6.2-8.2)
--- NOTE | 2022-01-02 13:42 | P.PN ---
Subjective Progress Note Date: 01/02/22 Principal diagnosis: anemia Hospital Course: 89-year-old male with history of hypertension, dyslipidemia, CAD presented with symptomatic anemia. Hematology was consulted. EGD and colonoscopy completed, showed gastritis. Unable to visualize right colon. Subjective: Patient seen and examined breath. No acute events overnight. He denies any bloody bowel movements. He denies any abdominal pain, chest pain, shortness breath. He claims that he could probably tolerate solid diet. Pertinent positives and negatives as discussed above, a complete review of systems was performed and all other systems are negative. Vitals Signs Reviewed. General: nontoxic, no distress, appears at stated age Derm: warm, dry Head: atraumatic, normocephalic, symmetric Eyes: EOMI, no lid lag, anicteric sclera Mouth: no lip lesion, mucus membranes moist Cardiovascular: S1S2 reg, no murmur Lungs: CTA bilateral, no rhonchi, no rales , no accessory muscle use Abdominal: soft, nontender to palpation, no guarding, no appreciable organomegaly Ext: no gross muscle atrophy, no edema, no contractures Neuro: CN II-XI grossly intact, no focal neuro deficits Psych: Alert, oriented, appropriate affect Assessment and Plan: Symptomatic Iron deficiency anemia -No acute GI bleed as an inpatient -Hematology following -Status post IV iron -Echocardiogram showed EF 50-55% with mild aortic stenosis -FOBT negative -EGD and colonoscopy completed-revealed gastritis with diverticulosis -Unable to visualize the right colon, pending fluoroscopy with barium enema -On regular diet Hypertension - On losartan -Hold hydrochlorothiazide in the setting of hyponatremia -Clonidine when necessary -Hydralazine added by nephrology Persistent cough since covid infection 6 months ago -Persistent postnasal drip -Mucinex twice a day -Outpatient follow-up with ENT Hypervolemic hyponatremia, improved -Nephrology consulted -Patient was on IV Lasix Chronic conditions: CAD TIA Dyslipidemia BPH -Continue home meds DVT ppx: Mechanical Code status: Full code Anticipated discharge place: Home Anticipated discharge time: Tomorrow Objective - Vital Signs Vital signs: Vital Signs Temp 99.2 F 01/02/22 07:47 Pulse 90 01/02/22 07:47 Resp 17 01/02/22 07:47 BP 185/77 01/02/22 07:47 Pulse Ox 97 01/02/22 07:47 FiO2 Intake & Output 01/01/22 01/02/22 01/02/22 18:59 06:59 18:59 Intake Total 300 Balance 300 Intake: IV 300 Other: # Voids 4 1 - Labs CBC & Chem 7: 01/02/22 07:06 01/02/22 07:06 Labs: Abnormal Lab Results - Last 24 Hours (Table) 01/02/22 01/02/22 Range/Units 07:06 07:06 RBC 3.14 L (4.40-5.60) X 10*6/uL Hgb 8.0 L (13.0-17.0) g/dL Hct 25.2 L (39.6-50.0) % MCH 25.5 L (27.0-32.0) pg MCHC 31.7 L (32.0-37.0) g/dL RDW 18.8 H (11.5-14.5) % Plt Count 447 H (140-440) X 10*3/uL MPV 8.4 L (9.5-12.2) fL Lymphocytes # 0.68 L (0.90-5.00) X 10*3/uL Sodium 132 L (135-145) mmol/L Anion Gap 5.30 L (10.00-18.00) mmol/L BUN 7.5 L (9.0-27.0) mg/dL BUN/Creatinine Ratio 9.38 L (12.00-20.00) Ratio Calcium 8.1 L (8.7-10.3) mg/dL Total Protein 4.3 L (6.2-8.2) g/dL Albumin 2.6 L (3.8-4.9) g/dL Albumin/Globulin Ratio 1.53 L (1.60-3.17) g/dL
--- NOTE | 2022-01-02 13:53 | P.PN ---
Subjective Progress Note Date: 01/02/22 CHIEF COMPLAINT: Anemia HISTORY OF PRESENT ILLNESS: Patient has symptomatic anemia with shortness of breath and weakness. He is status post EGD and colonoscopy. Results showed antral gastritis, diverticulosis, hemorrhoids and torturous colon. Scope could not be advanced beyond the hepatic flexure due to torturous valve. Dr. santos has ordered a barium enema to evaluate the right colon. Unfortunately the barium enema still cannot be completed due to retained air in the colon from the colonoscopy. This will need to be scheduled later. Patient is tolerating clear liquid diet. He is requesting more to eat. Afebrile. WBC is 5.0 to hemoglobin is up from 7.6-8.0 sodium is 132 Patient seen and examined with Dr. santos PHYSICAL EXAM: VITAL SIGNS: Reviewed. GENERAL: Well-developed in no acute distress. ABDOMEN: Soft. Nondistended. Nontender. NEUROLOGIC: Alert and oriented. Cranial nerves II through XII grossly intact. ASSESSMENT: 1. Symptomatic anemia no active bleeding status post EGD and colonoscopy 2. Iron deficiency anemia 3. Hyponatremia PLAN: -Patient needs barium enema completed to further evaluate the right colon -Barium enema x-ray can be completed outpatient if patient discharged -Start regular diet -Continue supportive care Physician Field Manager note has been reviewed by physician. Signing provider agrees with the documented findings, assessment, and plan of care. Objective - Vital Signs Vital signs: Vital Signs Temp 99.2 F 01/02/22 07:47 Pulse 90 01/02/22 07:47 Resp 17 01/02/22 07:47 BP 185/77 01/02/22 07:47 Pulse Ox 97 01/02/22 07:47 FiO2 Intake & Output 01/01/22 01/02/22 01/02/22 18:59 06:59 18:59 Intake Total 300 Balance 300 Intake: IV 300 Other: # Voids 4 1 - Labs CBC & Chem 7: 01/02/22 07:06 01/02/22 07:06 Labs: Abnormal Lab Results - Last 24 Hours (Table) 01/02/22 01/02/22 Range/Units 07:06 07:06 RBC 3.14 L (4.40-5.60) X 10*6/uL Hgb 8.0 L (13.0-17.0) g/dL Hct 25.2 L (39.6-50.0) % MCH 25.5 L (27.0-32.0) pg MCHC 31.7 L (32.0-37.0) g/dL RDW 18.8 H (11.5-14.5) % Plt Count 447 H (140-440) X 10*3/uL MPV 8.4 L (9.5-12.2) fL Lymphocytes # 0.68 L (0.90-5.00) X 10*3/uL Sodium 132 L (135-145) mmol/L Anion Gap 5.30 L (10.00-18.00) mmol/L BUN 7.5 L (9.0-27.0) mg/dL BUN/Creatinine Ratio 9.38 L (12.00-20.00) Ratio Calcium 8.1 L (8.7-10.3) mg/dL Total Protein 4.3 L (6.2-8.2) g/dL Albumin 2.6 L (3.8-4.9) g/dL Albumin/Globulin Ratio 1.53 L (1.60-3.17) g/dL
[2022-01-02 13:54] VITALS: BP 119/55; PULSE 72; TEMP 99
[2022-01-02 14:51] VITALS: BMI 26.6
[2022-01-02] MEDS ORDERED: hydrALAZINE HCL 25 MG TAB PO SCH (16:00)
--- NOTE | 2022-01-02 17:15 | P.DS ---
Providers Date of admission: 12/27/21 11:12 Expected date of discharge: 01/02/22 Attending physician: Richard Wheat MD Consults: 12/27/21 03:54 Consult Physician Routine Consulting Provider: Hugh Persaud Consult Reason/Comments: anemia Do you want consulting provider notified?: Yes, Notify in am 12/27/21 18:04 Consult Physician Routine Consulting Provider: Joel Eaton Consult Reason/Comments: anemia Do you want consulting provider notified?: Yes 12/28/21 09:42 Consult Physician Routine Consulting Provider: Isra Araiza Consult Reason/Comments: hyponatremia Do you want consulting provider notified?: Yes Primary care physician: Al Delgado [facility] Course: Discharge Diagnosis: Symptomatic iron deficiency anemia Mild gastritis Hypertension Persistent cough Hypervolemic hyponatremia CAD Hospital Course: A 89-year-old with history of hypertension, dyslipidemia and CAD who initially presented with symptomatic anemia. Iron studies suggestive of iron deficiency anemia. Hematology was also consulted. He was given IV iron as an inpatient. Initial FOBT was negative. However given his age and iron deficiency anemia, GI bleed was a concern. EGD and colonoscopy done as an inpatient revealed mild gastritis, external hemorrhoids, tortuous colon, diverticulosis. Unable to visualize beyond hepatic flexure due to tortuous colon. Patient will need a fluoroscopy with barium enema to visualize the right colon. At discharge, patient denied any further bleeding, hemoglobin was stable. He denied any further symptoms with regards to anemia. During his inpatient stay he was also found to be hyponatremic up to 123. Nephrology was consulted. Likely hypervolemia, he was given IV lasix. In terms of his hypertension management, hydrochlorothiazide was discontinued and hydralazine 75 3 times a day was added. Patient seen and examined at bedside. Vital signs reviewed and stable. General: nontoxic, no distress, appears at stated age Derm: warm, dry Head: atraumatic, normocephalic, symmetric Eyes: EOMI, no lid lag, anicteric sclera Mouth: no lip lesion, mucus membranes moist Cardiovascular: S1S2 reg, no murmur Lungs: CTA bilateral, no rhonchi, no rales , no accessory muscle use Abdominal: soft, nontender to palpation, no guarding, no appreciable organomegaly Ext: no gross muscle atrophy, no edema, no contractures Neuro: CN II-XI grossly intact, no focal neuro deficits Psych: Alert, oriented, appropriate affect A total of 41 minutes of time were spent preparing this complex discharge summary. Patient was discharged on 01/02/22 at 14:05. Patient Condition at Discharge: Stable Plan - Discharge Summary Discharge Rx Participant: No New Discharge Prescriptions: New hydrALAZINE HCL [Apresoline] 75 mg PO TID #90 tab Losartan [Cozaar] 100 mg PO DAILY #30 tab Continue Tamsulosin [Flomax] 0.4 mg PO DAILY PARoxetine [Paxil] 20 mg PO DAILY Omeprazole 20 mg PO DAILY Aspirin EC [Ecotrin Low Dose] 81 mg PO DAILY Cholecalciferol [Vitamin D3 (25 Mcg = 1000 Iu)] 25 mcg PO DAILY Clobetasol Propionate [Temovate 0.05% Cream] 1 applic TOPICAL BID Atorvastatin [Lipitor] 10 mg PO HS Magnesium Oxide [Magnesium] 500 mg PO BID Discontinued Doxycycline Hyclate 100 mg PO DIRECTED Losartan/Hydrochlorothiazide [Losartan-Hctz 100-25 mg Tab] 1 tab PO DAILY Discharge Medication List PARoxetine [Paxil] 20 mg PO DAILY 07/21/14 [History] Tamsulosin [Flomax] 0.4 mg PO DAILY 07/21/14 [History] Omeprazole 20 mg PO DAILY 01/11/21 [History] Atorvastatin [Lipitor] 10 mg PO HS 07/04/21 [History] Clobetasol Propionate [Temovate 0.05% Cream] 1 applic TOPICAL BID 07/04/21 [History] Aspirin EC [Ecotrin Low Dose] 81 mg PO DAILY 12/26/21 [History] Cholecalciferol [Vitamin D3 (25 Mcg = 1000 Iu)] 25 mcg PO DAILY 12/26/21 [History] Magnesium Oxide [Magnesium] 500 mg PO BID 12/26/21 [History] Losartan [Cozaar] 100 mg PO DAILY #30 tab 01/02/22 [Rx] hydrALAZINE HCL [Apresoline] 75 mg PO TID #90 tab 01/02/22 [Rx] Follow up Appointment(s)/Referral(s): Sinai Ny MD [STAFF PHYSICIAN] - 01/23/22 3:30 pm Al An MD [Primary Care Provider] - 1-2 days (CALL FOR APPOINTMENT.) Joel Eaton MD [STAFF PHYSICIAN] - 01/09/22 1:45 pm Patient Instructions/Handouts: Gastritis (DC), Diverticulosis (DC), Anemia (DC) Activity/Diet/Wound Care/Special Instructions: Discharge Disposition: HOME SELF-CARE
== END 2022-01-02 15:11 | disposition home or self-care (01) | DRG 811 ==
LOC: EC 18:43 → 6NMEDSUR 21:44 → 4SSUR 22:27 → OBSVTOIN 12-27 11:12
PROVIDERS: ADMIT Internal Medicine; ATTEND Internal Medicine
PROC: 0DJD8ZZ Inspection of Lower Intestinal Tract, Via Natural or Artificial Opening Endoscopic (ICD-10-PCS; principal; 2022-01-01 12:55)
PROC: 0DB78ZX Excision of Stomach, Pylorus, Via Natural or Artificial Opening Endoscopic, Diagnostic (ICD-10-PCS; principal; 2022-01-01 12:55)
DX: D50.9 Iron deficiency anemia, unspecified (principal); I50.33 Acute on chronic diastolic (congestive) heart failure; E87.1 Hypo-osmolality and hyponatremia; D53.9 Nutritional anemia, unspecified; E78.5 Hyperlipidemia, unspecified; E83.42 Hypomagnesemia; E86.0 Dehydration; E87.8 Other disorders of electrolyte and fluid balance, not elsewhere classified; Z86.73 Personal history of transient ischemic attack (TIA), and cerebral infarction without residual deficits; Z71.3 Dietary counseling and surveillance; I11.0 Hypertensive heart disease with heart failure; I25.10 Atherosclerotic heart disease of native coronary artery without angina pectoris; I25.2 Old myocardial infarction; I27.20 Pulmonary hypertension, unspecified; I49.3 Ventricular premature depolarization; Z95.5 Presence of coronary angioplasty implant and graft; I08.0 Rheumatic disorders of both mitral and aortic valves; K29.70 Gastritis, unspecified, without bleeding; U09.9 Post COVID-19 condition, unspecified; R05.3 Chronic cough; K57.90 Diverticulosis of intestine, part unspecified, without perforation or abscess without bleeding; Z86.010 Personal history of colon polyps; K64.4 Residual hemorrhoidal skin tags; N40.0 Benign prostatic hyperplasia without lower urinary tract symptoms; T46.5X6A Underdosing of other antihypertensive drugs, initial encounter; Z79.82 Long term (current) use of aspirin; Z79.899 Other long term (current) drug therapy; Z82.49 Family history of ischemic heart disease and other diseases of the circulatory system; Z86.718 Personal history of other venous thrombosis and embolism; Z87.891 Personal history of nicotine dependence; Z91.128 Patient's intentional underdosing of medication regimen for other reason; Z88.8 Allergy status to other drugs, medicaments and biological substances; Z91.030 Bee allergy status; Z88.5 Allergy status to narcotic agent; Z91.010 Allergy to peanuts
CPT/HCPCS: 36415; 43239; 71046; 74018; 80048; 80053; 81001; 82248; 82272; 82607; 82728; 82746; 83540; 83550; 83605; 83735; 83880; 83935; 84100; 84300; 84443; 84484; 85025; 85045; 85379; 85610; 85730; 86850; 86900; 86901; 88305; 93005; 93306; 94760; 99285

== ENCOUNTER → 2022-01-16 | Outpatient (CLI) | payer MEDICARE ==
--- NOTE | 2022-01-16 12:11 | FL ---
EXAMINATION TYPE: FL barium enema w air contrast DATE OF EXAM: 01/16/2022 COMPARISON: CT 07/04/2021 HISTORY: 89-year-old male incomplete colonoscopy last week. D64.9 ANEMIA, K57.30 diverticulosis of l arge intestines without perforation. TECHNIQUE: A single contrast barium enema study is performed. A total of 3 minutes 5 seconds of flu oroscopic time was utilized during procedure and 78 images obtained. FINDINGS: Sales Service Representative view of the abdomen shows persistent large amount of retained air throughout both sm all and large bowel. As the patient had similar excessive air last week and the exam was canceled twi ce previously, we decided to proceed with a single contrast exam. Overall non-obstructive bowel gas p attern. Some small bowel loops are air distended up to 4.0 cm. Tortuous sigmoid colon with moderate diverticulosis. Tortuous and redundant hepatic flexure and right side of the colon. We note contrast reflux into the distal ileum. No clear annular constricting lesion is seen. Limitation on the right side of the colon due to excessive bowel overlap. IMPRESSION: 1. Redundant sigmoid colon with moderate diverticulosis. 2. Very tortuous and redundant hepatic flexure and ascending colon limiting assessment. No clear susp icious annular constricting lesion is seen. 3. Note that we performed a single contrast exam as the patient had persistently air distended small and large bowel loops. Several small bowel loops were mildly dilated up to 4.0 cm. Query ileus.
== END | disposition home or self-care (01) ==
LOC: RADFLMAIN 09:11
PROVIDERS: ATTEND Surgery
DX: D64.9 Anemia, unspecified (principal); K63.89 Other specified diseases of intestine; K57.30 Diverticulosis of large intestine without perforation or abscess without bleeding
CPT/HCPCS: 74280